=== PATIENT | female | born 1965 | race Caucasian/White ===

== ENCOUNTER 2018-04-26 11:15 | Inpatient (IN) | payer OTHER ==
[~2018-04-26] VITALS: Ht 175.3 cm; Wt 90.0 kg
[2018-04-26] MEDS ORDERED: BISACODYL 10 MG SUPP PR PRN (17:45)
[2018-04-26] MEDS ORDERED: MOM 30ML SUSPENSION UDC PO PRN (17:45)
[2018-04-26] MEDS ORDERED: DEXTROSE 50% 50 ML SYRINGE IV PRN (17:45)
[2018-04-26] MEDS ORDERED: ONDANSETRON 4 MG TAB (S0181) PO PRN (17:45)
[2018-04-26] MEDS ORDERED: GLUCOSE 4 GM CHEW TABLET PO PRN (17:45)
[2018-04-26] MEDS ORDERED: GLUCAGON FOR INJ 1 MG VIAL (J1610) SC PRN (17:45)
[2018-04-26] MEDS ORDERED: ACETAMINOPHEN TAB 650MG DOSE (2X325MG) PO PRN (17:45)
[2018-04-26 18:00] VITALS: BP 134/79
[2018-04-26] MEDS ORDERED: LANTINJ4 SC (18:41)
[2018-04-26] MEDS ORDERED: ATOR80TA59 PO (18:41)
[2018-04-26] MEDS ORDERED: LISI40TA PO (18:41)
[2018-04-26] MEDS ORDERED: LEVO25TA5 PO (18:41)
[2018-04-26] MEDS ORDERED: AMLO10TA5 PO (18:41)
[2018-04-26] MEDS ORDERED: NOVOINJ2 SC (18:41)
[2018-04-26] MEDS ORDERED: METF500T4 PO (18:41)
[2018-04-26] MEDS ORDERED: METO1TAB33 PO (18:41)
[2018-04-26] MEDS ORDERED: GABA-1171 PO (18:41)
[2018-04-26] MEDS ORDERED: ISOS60TA2 PO (18:41)
[2018-04-26] MEDS ORDERED: ASPI1TAB PO (18:41)
[2018-04-26] MEDS ORDERED: CLOP75TA2 PO (18:41)
[2018-04-26] MEDS ORDERED: FAMO40TA3 PO (18:41)
[2018-04-26 20:00] VITALS: BP 151/69
[2018-04-26] MEDS: ATORVASTATIN 20 MG TAB PO SCH (22:22)
[2018-04-26] MEDS: DOCUSATE SODIUM 100 MG CAP PO SCH (22:23)
[2018-04-26] MEDS: SENNA 8.6 MG TAB (SENOKOT) PO SCH (22:23)
[2018-04-26] MEDS: GABAPENTIN 100 MG CAP PO SCH (22:23)
[2018-04-26] MEDS: LEVEMIR (INSULIN DETEMIR) 1 UNITS/0.01ML SC SCH (22:24)
[2018-04-27 06:00] VITALS: BP 129/66
[2018-04-27] MEDS: LEVOTHYROXINE 25MCG TABLET (0.025MG) PO SCH (06:32)
[2018-04-27 06:57] LABS: BASO # 0.1 10^3/uL (0.0-0.2); BASO % 0.5 % (0.0-1.0); EOS # 0.5 10^3/uL (0.0-0.50); EOS % 5.6 % (0.0-3.0); HEMATOCRIT 40.1 % (36.0-47.0); HEMOGLOBIN 12.8 g/dl (12.0-15.5); LYMPH # 2.8 10^3/uL (1.5-4.5); MEAN CORPUSCULAR HEMOGLOBIN 29.7 pg (27.0-33.0); MEAN CORPUSCULAR HGB CONC 31.9 g/dl (32.0-36.5); MONO # 0.9 10^3/uL (0.0-0.8); MONO % 9.2 % (0.0-5.0); NEUTROPHILS # 5.1 10^3/uL (1.8-7.7); NEUTROPHILS % 54.3 % (36.0-66.0); PLATELET COUNT, AUTOMATED 274 10^3/uL (150-450); RED BLOOD COUNT 4.31 10^6/uL (4.00-5.40); WHITE BLOOD COUNT 9.3 10^3/uL (4.0-10.0)
[2018-04-27 07:21] LABS: ALBUMIN 2.8 GM/DL (3.2-5.2); ALT/SGPT 24 U/L (12-78); BILIRUBIN,TOTAL 0.4 MG/DL (0.2-1.0); BLOOD UREA NITROGEN 20 MG/DL (7-18); CALCIUM LEVEL 8.7 MG/DL (8.5-10.1); CARBON DIOXIDE LEVEL 26 MEQ/L (21-32); CHLORIDE LEVEL 105 MEQ/L (98-107); CREATININE FOR GFR 0.88 MG/DL (0.55-1.30); GLOMERULAR FILTRATION RATE > 60.0 (>51); GLUCOSE, FASTING 134 MG/DL (70-100); SODIUM LEVEL 138 MEQ/L (136-145); TOTAL PROTEIN 6.8 GM/DL (6.4-8.2)
[2018-04-27] MEDS: FLUoxetine 20 MG CAP PO SCH (08:47)
[2018-04-27] MEDS: HumuLIN (NovoLIN)70/30 INSULIN INJ PER UNIT SC SCH ×2 (08:47→17:21)
[2018-04-27] MEDS: amLODIPine 10 MG TAB PO SCH (08:47)
[2018-04-27] MEDS: GABAPENTIN 100 MG CAP PO SCH (08:47)
[2018-04-27] MEDS: CLOPIDOGREL 75 MG TAB PO SCH (08:47)
[2018-04-27] MEDS: ISOSORBIDE MON. (IMDUR) 60 MG XR TAB PO SCH (08:48)
[2018-04-27] MEDS: PANTOPRAZOLE 40MG TAB (PROTONIX) PO SCH (08:48)
[2018-04-27] MEDS: ASPIRIN 81 MG CHEW TABLET PO SCH (08:48)
[2018-04-27] MEDS: DOCUSATE SODIUM 100 MG CAP PO SCH ×2 (08:48→21:02)
[2018-04-27] MEDS ORDERED: METOPROLOL SUCC *XL* 25MG TAB (TopROL *XL*) PO SCH (09:00)
[2018-04-27] MEDS: LISINOPRIL 40 MG TAB PO SCH (10:00)
[2018-04-27 10:05] VITALS: BP 163/82
[2018-04-27] MEDS ORDERED: DEXTROSE 50% 50 ML SYRINGE IV PRN (12:00)
[2018-04-27] MEDS ORDERED: GLUCOSE 4 GM CHEW TABLET PO PRN (12:00)
[2018-04-27] MEDS ORDERED: GLUCAGON FOR INJ 1 MG VIAL (J1610) SC PRN (12:00)
--- NOTE | 2018-04-27 12:03 | CR.PDOC ---
General Date of Consultation: Apr 27, 2018 Referring Provider: VINCENT MERLOS MD Primary Care Physician: A Attending Physician: EMERY CABRERA MD Consultation REASON FOR CONSULTATION/CHIEF COMPLAINT: Medical Management HISTORY OF PRESENT ILLNESS: Patient is a 51-year-old female with a past medical history of CAD, diabetes, hyperlipidemia, hypertension and Hypothyroidism . She presented to [facility] for with her second stroke in a different territory from her previous stroke 1 year ago. Given that this is the second stroke they was concern for cardioembolic source during admission. Patient underwent TTE that demonstrated mildly dilated left ventricle with ejection fraction of 40-45%. There was global hypokinesis without evidence of apical thrombus. Patient had aortic sclerosis, mildly dilated aortic root, no thrombus was detected. Negative bubble s tudy.Commercial Producer recommended CHINTAN to look at the atrial appendage, as well as a loop recorder implanted at discharge to monitor for atrial fibrillation. CHINTAN was later considered to be too risky given concern for aspiration, but a Loop recorder was placed by Dr. Lazcano to monitor for Afib. She presented to the ED with multiple mechanical falls over the last 2 days, and some memory changes as well as new right-sided weakness and difficulty swallowing. CT of the head showed no acute infarct or intracranial hemorrhage. And an old left occipital infarct was noted. She was admitted to [facility] with neurology consultation. An MRI during admission showed a left TYSON ischemic stroke, making this a second stroke within a year. Per neurology recommendation. Patient was asked to continue aspirin, Plavix and statin. She was monitored. Her other chronic medical problems such as hypertension, diabetes, coronary disease, hyperlipidemia and hypothyroidism was managed with home medication. She also received physical therapy and occupational therapy during hospital stay. She was discharged from [place] in stable condition. She presented to [facility] on 04/26/2018 for rehabilitation. Hospitalist team was consulted for medical management during her rehabilitation. ALLERGIES: Please see below. HOME MEDICATIONS: Please see below. PAST MEDICAL HISTORY: Coronary artery disease. Cerebrovascular accident. Diabetes type 2. Hyperlipidemia Hypertension PAST SURGICAL HISTORY: Cardiac catheterization in 05/21/2017: Normal coronaries FAMILY HISTORY: Aneurysm SOCIAL HISTORY: Single, unmarried, denies alcohol, denies tobacco use. Current every day smoker REVIEW OF SYSTEMS: ROS CONSTITUTIONAL: No fevers, denies chills, denies weight loss, denies lethargy HEENT: No rhinorrhea, no itchy eyes, no congesion, CARDIOVASCULAR: No murmurs no palpitations and arrhythmias RESPIRATORY: Not cough, No SOB, no issues to report GASTROINTESTINAL: No nausea, no vomiting, no difficulty swallowing, no pain with eating, no diarrhea HEMATOLOGICAL: No bleeding GENITOURINARY:No Issues HEMATOLOGIC/LYMPHATIC: No swelling Neuro: Admits to right sided weakness PE VITALS: See Below GENERAL APPEARANCE: Alert no acute distress. SKIN: Warm, well perfused. THORAX: Symmetrical. LUNGS: Clear to auscultation bilaterally. HEART: Normal S1, S2. No murmurs, no rubs, no gallops ABDOMEN: Soft. No masses. Bowel sounds are present. TRUNK/SPINE:Straight. EXTREMITIES: Moves all extremities equally. No gross deformities. PULSES: 2+ upper and lower extremity . NEURO cranial nerves II through XII, 5 out of 5 bilateral upper extremity, 3 out of 5 bilateral lower extremity LABORATORY DATA: Please see below. ASSESSMENT/PLAN: #CVA -Patient presented to [facility] for stroke. She was treated appropr iately, and discharge with a plan to remain on dual oral anticoagulant therapy with platelets and aspirin. Neurologist has recommended discontinuation of Lasix in June. Will defer to patient's neurologist for further management of her anticoagulation therapy. #Hypertension -Patient is on lisinopril, Norvasc, isosorbide mononitrate, metoprolol succinate . Her blood pressure remained stable. He denies any headache, denies any dizziness, #Diabetes -Levemir 10 units twice a day. Add sliding scale regimen to patient #Coronary artery disease #Hyperlipidemia -Atorvastatin 80 mg #Rehab -Patient will continue physical therapy and occupational therapy . Vital Signs/I&O Vital Signs Date Time Temp Pulse Resp B/P (MAP) Pulse Ox O2 Delivery O2 Flow Rate FiO2 04/27/18 10:05 82 163/82 (109) 04/27/18 06:00 98.3 17 95 I&O- Last 24 Hours up to 6 AM 04/27/18 05:59 Intake Total 420 ml Balance 420 ml Laboratory Data Labs 24H Laboratory Tests 2 04/26/18 22:25: Bedside Glucose (Misc Panel) 248H 04/27/18 06:26: Immature Granulocyte % (Auto) 0.4, White Blood Count 9.3, Red Blood Count 4.31, Hemoglobin 12.8, Hematocrit 40.1, Mean Corpuscular Volume 93.0, Mean Corpuscular Hemoglobin 29.7, Mean Corpuscular Hemoglobin Concent 31.9L, Red Cell Distribution Width 13.2, Platelet Count 274, Neutrophils (%) (Auto) 54.3, Lymphocytes (%) (Auto) 30.0, Monocytes (%) (Auto) 9.2H, Eosinophils (%) (Auto) 5.6H, Basophils (%) (Auto) 0.5, Neutrophils # (Auto) 5.1, Lymphocytes # (Auto) 2.8, Monocytes # (Auto) 0.9H, Eosinophils # (Auto) 0.5, Basophils # (Auto) 0.1, Nucleated Red Blood Cells % (auto) 0.0, Anion Gap 7L, Glomerular Filtration Rate > 60.0, Blood Urea Nitrogen 20H, Creatinine 0.88, Sodium Level 138, Potassium Level 4.0, Chloride Level 105, Carbon Dioxide Level 26, Calcium Level 8.7, Aspartate Amino Transf (AST/SGOT) 14, Alanine Aminotransferase (ALT/SGPT) 24, Alkaline Phosphatase 100, Total Bilirubin 0.4, Total Protein 6.8, Albumin 2.8L, Albumin/Globulin Ratio 0.70L CBC/BMP Laboratory Tests 04/27/18 06:26 Red Blood Count 4.31, Mean Corpuscular Volume 93.0, Mean Corpuscular Hemoglobin 29.7, Mean Corpuscular Hemoglobin Concent 31.9 L, Red Cell Distribution Width 13.2, Neutrophils (%) (Auto) 54.3, Lymphocytes (%) (Auto) 30.0, Monocytes (%) (Auto) 9.2 H, Eosinophils (%) (Auto) 5.6 H, Basophils (%) (Auto) 0.5, Neutrophils # (Auto) 5.1, Lymphocytes # (Auto) 2.8, Monocytes # (Auto) 0.9 H, Eosinophils # (Auto) 0.5, Basophils # (Auto) 0.1, Calcium Level 8.7, Aspartate Amino Transf (AST/SGOT) 14, Alanine Aminotransferase (ALT/SGPT) 24, Alkaline Phosphatase 100, Total Bilirubin 0.4, Total Protein 6.8, Albumin 2.8 L Allergies Coded Allergies: No Known Allergies (Unverified , 04/26/18) Home Medications Scheduled Amlodipine Besylate (Amlodipine Besylate) 10 Mg Tab, 10 MG PO DAILY, (Reported) TO [facility]27[facility] Aspirin (Aspirin 81) 81 Mg Tab, 81 MG PO DAILY, (Reported) Atorvastatin Calcium (Atorvastatin Calcium) 80 Mg Tab, 80 MG PO QHS, (Reported) TO START ON 04/27/18 PER [facility] Clopidogrel Bisulfate (Clopidogrel) 75 Mg Tab, 75 MG PO DAILY, (Reported) TO START ON 04/27/18 PER [facility] Famotidine (Famotidine) 40 Mg Tab, 40 MG PO DAILY, (Reported) Gabapentin (Gabapentin) 100 Mg Cap, 100 MG PO BID, (Reported) Insulin Aspart Protamine/Aspar (Novolog Mix 70/30 Prefill (70-30) 100 Unit/ml) 1 Inj Inj, 12 UNITS SC BID, (Reported) Insulin Glargine (Lantus Solostar) 100 Unit/Ml Inj, 18 UNITS SC QHS, (Reported) Isosorbide Mononitrate (Isosorbide Mononitrate ER) 60 Mg Tab, 60 MG PO DAILY, (Reported) Levothyroxine Sodium (Synthroid) 25 Mcg Tab, 25 MCG PO DAILY, (Reported) TO [place]27/[place] Lisinopril (Lisinopril) 40 Mg Tab, 40 MG PO DAILY, (Reported) Metformin Hydrochloride (Metformin HCl ER) 500 Mg Tab, 1,000 MG PO BID, (Reported) Metoprolol Succinate (Metoprolol Succinate ER) 100 Mg Tab, 100 MG PO DAILY, (Reported) GME ATTESTATION GME ATTESTATION My faculty preceptor for this patient encounter was physically present during the encounter and was fully available. All aspects of the patient interview, examination, medical decision making process, and medical care plan development were reviewed and approved by the faculty preceptor. The faculty preceptor is aware and concurs with the plan as stated in the body of this note and will attest to such by his/her cosignature. DONN BUTTS DO Apr 27, 2018 12:03
[2018-04-27] MEDS: HumaLOG INSULIN (NovoLOG) PER UNIT SC SCH ×3 (12:25→21:00)
[2018-04-27 13:05] VITALS: BP 156/81
--- NOTE | 2018-04-27 13:10 | HPEPDOC ---
Entry Level Business Analyst Note DATE OF ADMISSION: Apr 26, 2018 at 17:15 SOURCE OF ADMISSION INFORMATION: Patient and [place]'s medical records CHIEF COMPLAINT: stroke HISTORY OF PRESENT ILLNESS: 52F pmh CAD, DM, HLD, HTN ,CVA with no significant residual weakness, who presented to [facility] on 04/14/18 complaining of right leg weakness that had lasted for 2 days in addition to memory loss. She reported at the time she had stopped taking her aspirin and was noted to have difficulty swallowing on exam. Repeat imaging revealed a left TYSON territory acute ischemic stroke with a probable occlusion of left TYSON. May be secondary to high grade atherosclerotic occlusion versus embolism. She was also found to have a remote left stroke in the left EMAIL MANAGER distribution. TTE showed, LV systolic function is mildly impairedejection fraction is 40- 45%...LV diastolic function is abnormal with elevated filling pressuresAscending aorta is mildly dilated measuring up to 3.7 cmbubble study no evidence of any ASD or PFO. Carotid US revealed 50-69% stenosis within the left internal carotid artery. Less than 50% stenosis within the proximal right internal carotid artery. She was evaluated by cardiology who was concerned that given this was her second stroke within the year that the source may be cardioembolic. She was instructed to continue ASA and Plavix until June 2018 then to discontinue Plavix and continue ASA. CHINTAN was later considered to be too risky given concern for aspiration, but a Loop recorder was placed by Dr. Lazcano to monitor for Afib.She was evaluated by therapy and deemed medically appropriate for discharge to ARU on 04/26/18. REVIEW OF SYSTEMS: The following is a completed review of systems and has been reviewed. Review of systems otherwise unremarkable. PAIN: Patient self reports no pain. EYES: +right visual field cut EARS, NOSE, & THROAT: +dysphagia, no rhinorrhea or hearing loss CARDIOVASCULAR: denies palpitations or chest pain PULMONARY: Negative. Denies shortness of breath GASTROINTESTINAL: Negative for diarrhea or constipation GENITOURINARY: +incontinence, denies dysuria. MUSCULOSKELETAL: RLE weakness NEUROLOGICAL: +stroke with RLE paresis HEMATOLOGICAL: Negative SKIN: loop recorder incision PSYCHIATRIC: Unremarkable. All other review of systems found to be negative. PAST MEDICAL HISTORY: CAD, DM, HLD, HTN ,CVA PAST SURGICAL HISTORY: Cardiac Catheterization 3/5/18- normal coronaries with mod-severe LV systolic function with EF 30-35 and moderate to severe mitral regurgitation, however f/u echo 08/2017 showed normal EF and no mitral disease Loop recorder placed 04/2018 ALLERGIES: Please see below. MEDICATIONS: Please see below. FAMILY HISTORY: Mother with aneurysm SOCIAL HISTORY: Lives with significant other, daughter, smokes 1/2 pack a day, denies ETOH or illicit drug use DIET: mechanical soft and puree PHYSICAL EXAMINATION: VITAL SIGNS: Please see below. GENERAL: Pleasant and cooperative. No acute distress. HEENT: PERRL. Extraocular movements intact. Clear conjunctiva, poor dentition, visual field cut on the right CARDIOVASCULAR: Regular rate and rhythm. No murmurs, rubs, or gallops LUNGS: Clear to auscultation bilaterally. No wheezes. No rhonchi ABDOMEN: Soft, nontender, nondistended. Positive bowel sounds. Normal active bowel sounds NEUROLOGICAL: Alert and oriented times three. Cranial nerves II through XII grossly intact. EXTREMITIES: 5\5 strength bilateral upper extremities. 2/5 right hip flexors, knee extensors, ankle DF and EHL 5/5 strength in left lower extremity. +Babinski on the right +decreased sensation in right LE to light touch negative dysmetria SKIN: chest wall incision with sutures healing well IMAGING: Imaging documentation personally reviewed by record. FUNCTIONAL STATUS: Premorbid: Independent with all activities of daily life as well as mobility. On Admission: Min assist x 2 for functional transfers, min assist for bed mobility, Standby Assist for upper body dressing, mod-assist for Lower Body dressing, Min-Mod assist for bathing. GOALS: Modified Independent ambulating with a RW, upper and lower body dressing, Supervision for stairs, supervision for bathing, medical optimization, assess for DME needs, family training ASSESSMENT:52-year-old F with past medical history of CVA, CAD, diastolic CHF, DM who presents status post new stroke with RLE weakness and dysphagia PLAN: 1. Rehab: PT/OT JOB HONER, assess fo DME 2. 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 Resp: encourage incentive spirometry, monitor for aspiration 4. Cardio: pmh HTN with diastolic and systolic CHF, continue BP meds and adjust as needed-medicine consulted 5. Endo: pmh DM, continue insulin therapy, will hold metformin 6. DVT ppx: Lovenox 7. GI ppx: Pepcid 8. : f/u admisison UA and Ucx, monitor PVRs 9. DIspo: [id number] with Dr. Warren PMD [phone] POST ADMISSION PHYSICIAN EVALUATION: Medical and functional status: Description of medical status, medical assess ment: As above. Rehabilitation diagnosis and current and prior cold morbid medical conditions as above. Risk of complications and plans to mitigate them as above. Description of functional status current status is as above. Prior status as above. Status compared to preadmission: There are no clinically significant differences between the patient's current status and the information described on the preadmission screening document. Treatment plan anticipated: Treatment plan is as described above. Required disciplines including physical therapy, occupational therapy, others as noted ab ove. Intensity of services: 3 hours a day, 6 days a week. Special considerations: There are no specific special or safety considerations that would likely preclude immediate implementation of an intensive rehabilitation program or subsequently influence the plan of care. ATTESTATION: Considering all the information above, it is my best judgment that this patient requires intensive rehabilitation therapy as described above and an inpatient hospital environment due to the complexity of nursing, medical, and rehabilitation needs required by the patient. Furthermore, this patient can r easonably be expected to participate in an benefit from an inpatient rehabilitation stay with an interdisciplinary team approach to the delivery of rehabilitation care under the direction and supervision of rehabilitation physician. PROGNOSIS: Excellent. ESTIMATED LENGTH OF STAY:21-28 days. PROJECTED DISCHARGE DESTINATION: Home with family support and any durable medical equipment required to increase functional safety and mobility. TIME SPENT COUNSELING AND COORDINATING INITIAL CARE: Greater than 70 minutes. Vital Signs Vital Signs Date Time Temp Pulse Resp B/P (MAP) Pulse Ox O2 Delivery O2 Flow Rate FiO2 04/26/18 18:00 97.5 60 18 134/79 (97) 94 Home Medications Scheduled Amlodipine Besylate (Amlodipine Besylate) 10 Mg Tab, 10 MG PO DAILY, (Reported) TO START ON 04/27/18 PER [facility] Aspirin (Aspirin 81) 81 Mg Tab, 81 MG PO DAILY, (Reported) Atorvastatin Calcium (Atorvastatin Calcium) 80 Mg Tab, 80 MG PO QHS, (Reported) TO START ON 04/27/18 PER [facility] Clopidogrel Bisulfate (Clopidogrel) 75 Mg Tab, 75 MG PO DAILY, (Reported) TO START ON 04/27/18 PER [facility] Famotidine (Famotidine) 40 Mg Tab, 40 MG PO DAILY, (Reported) Gabapentin (Gabapentin) 100 Mg Cap, 100 MG PO BID, (Reported) Insulin Aspart Protamine/Aspar (Novolog Mix 70/30 Prefill (70-30) 100 Unit/ml) 1 Inj Inj, 12 UNITS SC BID, (Reported) Insulin Glargine (Lantus Solostar) 100 Unit/Ml Inj, 18 UNITS SC QHS, (Reported) Isosorbide Mononitrate (Isosorbide Mononitrate ER) 60 Mg Tab, 60 MG PO DAILY, (Reported) Levothyroxine Sodium (Synthroid) 25 Mcg Tab, 25 MCG PO DAILY, (Reported) TO START ON 04/27/18 PER [facility] Lisinopril (Lisinopril) 40 Mg Tab, 40 MG PO DAILY, (Reported) Metformin Hydrochloride (Metformin HCl ER) 500 Mg Tab, 1,000 MG PO BID, (Reported) Metoprolol Succinate (Metoprolol Succinate ER) 100 Mg Tab, 100 MG PO DAILY, (Reported) Allergies Coded Allergies: No Known Allergies (Unverified , 04/26/18) VINCENT MERLOS MD Apr 26, 2018 18:17
--- NOTE | 2018-04-27 13:11 | NUR ---
Pt w/ mild oral phase dysphagia Recommend mechanical soft solids (NDD) level 3 and thin liquids Addendum: 04/27/18 at 1312 by TOMI HOOD [facility] Amended: Links added.
--- NOTE | 2018-04-27 13:16 | NUR ---
Pt w/ dysarthric speech and mild deficits in receptive/expressive language which are significantly impacted by short term memory impairment. Recommend DIESEL ENGINE ERECTOR tx for dysarthria & cognition. Will re-assess language if necessary as these deficits improve. Addendum: 04/27/18 at 1318 by TOMI HOOD [facility] Amended: Links added.
--- NOTE | 2018-04-27 13:22 | NUR ---
Pt w/ moderate cognitive impairment. Recommend NETWORK SYSTEMS OPERATOR tx targeting memory, attention, orientation, awareness, and problem-solving. Addendum: 04/27/18 at [address] [facility] Amended: Links added.
[2018-04-27 14:00] VITALS: BP 125/65
[2018-04-27 20:00] VITALS: BP 152/80
[2018-04-27] MEDS: SENNA 8.6 MG TAB (SENOKOT) PO SCH (21:02)
[2018-04-27] MEDS: LEVEMIR (INSULIN DETEMIR) 1 UNITS/0.01ML SC SCH (21:02)
[2018-04-27] MEDS: ATORVASTATIN 20 MG TAB PO SCH (21:02)
[2018-04-28] MEDS: LEVOTHYROXINE 25MCG TABLET (0.025MG) PO SCH (05:20)
[2018-04-28 06:00] VITALS: BP 150/84
[2018-04-28] MEDS: HumaLOG INSULIN (NovoLOG) PER UNIT SC SCH ×4 (09:22→22:30)
[2018-04-28] MEDS: ASPIRIN 81 MG CHEW TABLET PO SCH (09:22)
[2018-04-28] MEDS: HumuLIN (NovoLIN)70/30 INSULIN INJ PER UNIT SC SCH ×2 (09:22→17:15)
[2018-04-28] MEDS: ISOSORBIDE MON. (IMDUR) 60 MG XR TAB PO SCH (09:23)
[2018-04-28] MEDS: FLUoxetine 20 MG CAP PO SCH (09:23)
[2018-04-28] MEDS: METOPROLOL SUCC (TopROL XL) 50MG **XL** TAB PO SCH (09:23)
[2018-04-28] MEDS: PANTOPRAZOLE 40MG TAB (PROTONIX) PO SCH (09:24)
[2018-04-28] MEDS: amLODIPine 10 MG TAB PO SCH (09:24)
[2018-04-28] MEDS: CLOPIDOGREL 75 MG TAB PO SCH (09:24)
[2018-04-28] MEDS: LISINOPRIL 40 MG TAB PO SCH (09:24)
[2018-04-28] MEDS: DOCUSATE SODIUM 100 MG CAP PO SCH ×2 (09:24→21:00)
[2018-04-28 14:00] VITALS: BP 132/79
[2018-04-28 20:00] VITALS: BP 168/82
[2018-04-28] MEDS: SENNA 8.6 MG TAB (SENOKOT) PO SCH (21:00)
[2018-04-28] MEDS: ATORVASTATIN 20 MG TAB PO SCH (22:29)
[2018-04-28] MEDS: LEVEMIR (INSULIN DETEMIR) 1 UNITS/0.01ML SC SCH (22:30)
[2018-04-29] MEDS: LEVOTHYROXINE 25MCG TABLET (0.025MG) PO SCH (05:33)
[2018-04-29 06:00] VITALS: BP 168/84
[2018-04-29] MEDS: HumuLIN (NovoLIN)70/30 INSULIN INJ PER UNIT SC SCH ×2 (08:32→17:38)
[2018-04-29] MEDS: FLUoxetine 20 MG CAP PO SCH (08:33)
[2018-04-29] MEDS: CLOPIDOGREL 75 MG TAB PO SCH (08:33)
[2018-04-29] MEDS: ASPIRIN 81 MG CHEW TABLET PO SCH (08:33)
[2018-04-29] MEDS: DOCUSATE SODIUM 100 MG CAP PO SCH ×2 (08:33→21:26)
[2018-04-29] MEDS: PANTOPRAZOLE 40MG TAB (PROTONIX) PO SCH (08:33)
[2018-04-29] MEDS: HumaLOG INSULIN (NovoLOG) PER UNIT SC SCH ×6 (08:33→21:00)
[2018-04-29] MEDS: ISOSORBIDE MON. (IMDUR) 60 MG XR TAB PO SCH (08:36)
[2018-04-29] MEDS: METOPROLOL SUCC (TopROL XL) 50MG **XL** TAB PO SCH (08:36)
[2018-04-29] MEDS: amLODIPine 10 MG TAB PO SCH (08:37)
[2018-04-29] MEDS: LISINOPRIL 40 MG TAB PO SCH (10:54)
[2018-04-29 11:40] VITALS: BP 148/73
[2018-04-29 14:00] VITALS: BP 129/72
--- NOTE | 2018-04-29 14:18 | IPNPDOC ---
Date Seen The patient was seen on 04/29/18. Progress Note HPI: Patient is a 51-year-old female who presented to the ED with multiple mechanical falls over the 2 days prior to admission, and some memory changes as well as new right-sided weakness and difficulty swallowing. CT of the head showed no acute infarct or intracranial hemorrhage,old left occipital infarct was noted. She was admitted to [facility] with neurology consultation. An MRI during admission showed a left TYSON ischemic stroke, making this a second stroke within a year. Per neurology recommendation, the pt was continued on aspirin, Plavix and statin. Given that this is the second stroke there was concern for cardioembolic source during admission. Patient underwent TTE that demonstrated mildly dilated left ventricle with ejection fraction of 40-45%. There was global hypokinesis without evidence of apical thrombus. Patient had aortic sclerosis, mildly dilated aortic root, no thrombus was detected. Negative bubble study. Laundry Superintendent recommended CHINTAN to look at the atrial appendage, as well as a loop recorder implanted at discharge to monitor for atrial fibrillation. CHINTAN was later considered to be too risky given concern for aspiration, but a Loop re tori was placed by Dr. Lazcano to monitor for Afib. The pt was transferred to the care of Dr Teixeira, [facility], 04/27/18. The pt is noted to have residual RLE weakness and dysphagia. Denies any fevers, chills, weakness, fatigue, Headache, Chest Pain, Shortness of breath, cough, palpitations, abdominal pain, N/V/D or changes in bowel or bladder habits. PMHx: CAD DM HLD HTN hypothyroid H/O CVA 2017 PSHX: Cardiac catheterization in 05/21/2017: Normal coronaries Loop recorder PE: GEN: 52yoF, appears stated age. Well-nourished, well developed. No acute distress. Alert and oriented x 3. Pleasant, interactive. HEENT: Normocephalic, atraumatic. Sclera are nonicteric. Conjunctiva without injection. Nose midline. Nasal turbinates without bogginess. Moist mucous membranes. CHEST: Regular rate and rhythm, +S1, +S2 LUNGS: Clear to auscultation bilaterally. No wheezes, rales, or rhonchi. Breathing appears symmetric and easy. Patient is speaking in full sentences. No accessory muscle use. ABD: Round, soft, non-tender, non-distended. +Bowel sounds throughout. No rebound or guarding. EXT: No lower extremity edema appreciated. SKIN: [place], dry, warm. No rashes. NEURO: Alert and oriented x 3. A&P: Patient is a 51-year-old female who presented to the ED with multiple mechanical falls over the 2 days prior to admission, and some memory changes as well as new right-sided weakness and difficulty swallowing. CT of the head showed no acute infarct or intracranial hemorrhage,old left occipital infarct was noted. She was admitted to [facility] with neurology consultation. An MRI during admission showed a left TYSON ischemic stroke, making this a second stroke within a year. Per neurology recommendation, the pt was continued on aspirin, Plavix and stati n. Given that this is the second stroke there was concern for cardioembolic source during admission. Patient underwent TTE that demonstrated mildly dilated left ventricle with ejection fraction of 40-45%. There was global hypokinesis without evidence of apical thrombus. Patient had aortic sclerosis, mildly dilated aortic root, no thrombus was detected. Negative bubble study. Laundry Superintendent recommended CHINTAN to look at the atrial appendage, as well as a loop recorder implanted at discharge to monitor for atrial fibrillation. CHINTAN was later considered to be too risky given concern for aspiration, but a Loop recorder was placed by Dr. Lazcano to monitor for Afib. The pt was transferred to the care of Dr Teixeira, [facility], 04/27/18. 1. S/P CVA with residual RLE weakness and dysphagia. Mgmt as per ARU. PT/OT as per ARU. ST as per ARU. Pain control as per ARU. Bowel care as per ARU. DVT prophylaxis as per ARU. Outpt F/U with Neurology. Continue ASA81 mg daily, Plavix 75 mg daily, Lipitor 80 mg daily. 2. Hypertension Lisinopril, Norvasc, isosorbide mononitrate, metoprolol succinate. Her blood pressure remained stable. 3. Diabetes. CC diet SSI Levemir. 4. Coronary artery disease ASA/Toprol XL/Statin. 5. Hyperlipidemia Atorvastatin 80 mg 6. GERD. PPI. 7. hypothyroid. Continue supplement. 8. Depression. Prozac. VS, I&O, 24H, Fishbone Vital Signs/I&O Vital Signs Date Time Temp Pulse Resp B/P (MAP) Pulse Ox O2 Delivery O2 Flow Rate FiO2 04/29/18 11:40 97.3 81 20 148/73 (98) 96 I&O- Last 24 Hours up to 6 AM 04/29/18 06:00 Intake Total 720 ml Balance 720 ml Laboratory Data 24H LABS Laboratory Tests 2 04/28/18 16:36: Bedside Glucose (Misc Panel) 187H 04/28/18 20:08: Bedside Glucose (Misc Panel) 283H 04/29/18 05:27: Bedside Glucose (Misc Panel) 133H 04/29/18 11:23: Bedside Glucose (Misc Panel) 268H Elicia Patino Apr 29, 2018 14:18
[2018-04-29 21:05] VITALS: BP 131/61
[2018-04-29] MEDS: ATORVASTATIN 20 MG TAB PO SCH (21:26)
[2018-04-29] MEDS: SENNA 8.6 MG TAB (SENOKOT) PO SCH (21:26)
[2018-04-29] MEDS: LEVEMIR (INSULIN DETEMIR) 1 UNITS/0.01ML SC SCH (21:29)
[2018-04-30] MEDS: LEVOTHYROXINE 25MCG TABLET (0.025MG) PO SCH (05:29)
[2018-04-30 05:34] VITALS: BP 131/63
[2018-04-30] MEDS: HumuLIN (NovoLIN)70/30 INSULIN INJ PER UNIT SC SCH ×2 (07:30→17:17)
[2018-04-30] MEDS: HumaLOG INSULIN (NovoLOG) PER UNIT SC SCH ×7 (07:30→20:11)
[2018-04-30 07:31] LABS: BASO # 0.1 10^3/uL (0.0-0.2); BASO % 0.7 % (0.0-1.0); EOS # 0.4 10^3/uL (0.0-0.50); EOS % 4.3 % (0.0-3.0); HEMATOCRIT 39.3 % (36.0-47.0); HEMOGLOBIN 12.5 g/dl (12.0-15.5); LYMPH # 2.9 10^3/uL (1.5-4.5); LYMPH % 31.9 % (24.0-44.0); MEAN CORPUSCULAR HEMOGLOBIN 29.8 pg (27.0-33.0); MEAN CORPUSCULAR HGB CONC 31.8 g/dl (32.0-36.5); MEAN CORPUSCULAR VOLUME 93.6 fl (80.0-96.0); MONO # 0.8 10^3/uL (0.0-0.8); NEUTROPHILS # 4.9 10^3/uL (1.8-7.7); NEUTROPHILS % 53.8 % (36.0-66.0); PLATELET COUNT, AUTOMATED 293 10^3/uL (150-450)
[2018-04-30 08:28] LABS: BLOOD UREA NITROGEN 21 MG/DL (7-18); CALCIUM LEVEL 8.7 MG/DL (8.5-10.1); CARBON DIOXIDE LEVEL 28 MEQ/L (21-32); CHLORIDE LEVEL 105 MEQ/L (98-107); CREATININE FOR GFR 0.89 MG/DL (0.55-1.30); GLOMERULAR FILTRATION RATE > 60.0 (>51); GLUCOSE, FASTING 102 MG/DL (70-100); POTASSIUM SERUM 4.3 MEQ/L (3.5-5.1); SODIUM LEVEL 139 MEQ/L (136-145)
[2018-04-30] MEDS: CLOPIDOGREL 75 MG TAB PO SCH (09:46)
[2018-04-30] MEDS: FLUoxetine 20 MG CAP PO SCH (09:46)
[2018-04-30] MEDS: PANTOPRAZOLE 40MG TAB (PROTONIX) PO SCH (09:46)
[2018-04-30] MEDS: ISOSORBIDE MON. (IMDUR) 60 MG XR TAB PO SCH (09:48)
[2018-04-30] MEDS: ASPIRIN 81 MG CHEW TABLET PO SCH (09:48)
[2018-04-30] MEDS: DOCUSATE SODIUM 100 MG CAP PO SCH ×2 (09:48→20:11)
[2018-04-30] MEDS: amLODIPine 10 MG TAB PO SCH (09:48)
[2018-04-30] MEDS: METOPROLOL SUCC (TopROL XL) 50MG **XL** TAB PO SCH (09:48)
[2018-04-30] MEDS: LISINOPRIL 40 MG TAB PO SCH (10:27)
--- NOTE | 2018-04-30 12:35 | IPNPDOC ---
PM&R Progress Note DATE OF SERVICE: Apr 29, 2018 Service Architect Progress Note Subjective: Patient slid out of her chair today, denies hitting her head, no pain. She denies pain with urination, however is incontinent. REVIEW OF SYSTEMS: The following is a completed review of systems and has been reviewed. Review of systems otherwise unremarkable. PAIN: Patient self reports no pain. EYES: +right visual field cut EARS, NOSE, & THROAT: +dysphagia, no rhinorrhea or hearing loss CARDIOVASCULAR: denies palpitations or chest pain PULMONARY: Negative. Denies shortness of breath GASTROINTESTINAL: Negative for diarrhea or constipation GENITOURINARY: +incontinence, denies dysuria. MUSCULOSKELETAL: RLE weakness NEUROLOGICAL: +stroke with RLE paresis HEMATOLOGICAL: Negative SKIN: loop recorder incision PSYCHIATRIC: Unremarkable. All other review of systems found to be negative. PHYSICAL EXAMINATION: VITAL SIGNS: Please see below. GENERAL: Pleasant and cooperative. No acute distress. HEENT: PERRL. Extraocular movements intact. Clear conjunctiva, poor dentition, visual field cut on the right CARDIOVASCULAR: Regular rate and rhythm. No murmurs, rubs, or gallops LUNGS: Clear to auscultation bilaterally. No wheezes. No rhonchi ABDOMEN: Soft, nontender, nondistended. Positive bowel sounds. Normal active bowel sounds NEUROLOGICAL: Alert and oriented times three. Cranial nerves II through XII grossly intact. EXTREMITIES: 5\5 strength bilateral upper extremities. 2/5 right hip flexors, knee extensors, ankle DF and EHL 5/5 strength in left lower extremity. +Babinski on the right +decreased sensation in right LE to light touch negative dysmetria SKIN: chest wall incision with sutures healing well ASSESSMENT:52-year-old F with past medical history of CVA, CAD, diastolic CHF, DM who presents status post new stroke with RLE weakness and dysphagia PLAN: 1. Rehab: PT/OT [employer], assess fo DME, aptient with significant right sided inattention due to visual field cut- upgraded to mechanical soft diet and thins 2. 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 Resp: encourage incentive spirometry, monitor for aspiration 4. Cardio: pmh HTN with diastolic and systolic CHF, continue BP meds and adjust as needed-medicine consulted 5. Endo: pmh DM, continue insulin therapy, will hold metformin 6. DVT ppx: Lovenox 7. GI ppx: Pepcid 8. : f/u admisison UA and Ucx, monitor PVRs 9. DIspo: [id number] with Dr. Warren PMD [phone] Allergies Coded Allergies: No Known Allergies (Unverified , 04/26/18) Vital Signs Vital Signs Date Time Temp Pulse Resp B/P (MAP) Pulse Ox O2 Delivery O2 Flow Rate FiO2 04/30/18 09:48 71 04/30/18 09:48 137/63 04/30/18 05:34 97.7 18 95 Laboratory Data CBC/BMP Laboratory Tests 04/30/18 06:32 Red Blood Count 4.20, Mean Corpuscular Volume 93.6, Mean Corpuscular Hemoglobin 29.8, Mean Corpuscular Hemoglobin Concent 31.8 L, Red Cell Distribution Width 13.3, Neutrophils (%) (Auto) 53.8, Lymphocytes (%) (Auto) 31.9, Monocytes (%) (Auto) 9.0 H, Eosinophils (%) (Auto) 4.3 H, Basophils (%) (Auto) 0.7, Neutrophils # (Auto) 4.9, Lymphocytes # (Auto) 2.9, Monocytes # (Auto) 0.8, Eosinophils # (Auto) 0.4, Basophils # (Auto) 0.1, Calcium Level 8.7 Labs 24H Laboratory Tests 2 04/29/18 17:00: Bedside Glucose (Misc Panel) 164H 04/29/18 21:10: Bedside Glucose (Misc Panel) 123H 04/30/18 06:32: Immature Granulocyte % (Auto) 0.3, White Blood Count 9.0, Red Blood Count 4.20, Hemoglobin 12.5, Hematocrit 39.3, Mean Corpuscular Volume 93.6, Mean Corpuscular Hemoglobin 29.8, Mean Corpuscular Hemoglobin Concent 31.8L, Red Cell Distribution Width 13.3, Platelet Count 293, Neutrophils (%) (Auto) 53.8, Lymphocytes (%) (Auto) 31.9, Monocytes (%) (Auto) 9.0H, Eosinophils (%) (Auto) 4.3H, Basophils (%) (Auto) 0.7, Neutrophils # (Auto) 4.9, Lymphocytes # (Auto) 2.9, Monocytes # (Auto) 0.8, Eosinophils # (Auto) 0.4, Basophils # (Auto) 0.1, Nucleated Red Blood Cells % (auto) 0.0, Anion Gap 6L, Glomerular Filtration Rate > 60.0, Blood Urea Nitrogen 21H, Creatinine 0.89, Sodium Level 139, Potassium Level 4.3, Chloride Level 105, Carbon Dioxide Level 28, Calcium Level 8.7 04/30/18 06:40: Bedside Glucose (Misc Panel) 96 Current Medications Current Medications Current Medications Acetaminophen (Tylenol Tab) 650 mg Q4HP PRN PO fever/MILD PAIN (PS 1-4); Start 04/26/18 at 17:45 Amlodipine Besylate (Norvasc) 10 mg DAILY PO Last administered on 04/30/18at 09:48; Start 04/27/18 at 09:00 Aspirin (Aspirin Chewable) 81 mg DAILY PO Last administered on 04/30/18at 09:48; Start 04/27/18 at 09:00 Atorvastatin Calcium (Lipitor) 80 mg QHS PO Last administered on 04/29/18at 21:26; Start 04/26/18 at 21:00 Bisacodyl (Dulcolax Suppository) 10 mg DAILYPRN PRN [place] CONSTIPATION; Start 04/26/18 at 17:45 Clopidogrel Bisulfate (PLAVix) 75 mg DAILY PO Last administered on 04/30/18at 09:46; Start 04/27/18 at 09:00 Dextrose (Dextrose 50%) 25 ml ASDIRECTED PRN IV SEE LABEL COMMENTS; Start 04/26/18 at 17:45 Dextrose (Dextrose 50%) 25 ml ASDIRECTED PRN IV SEE LABEL COMMENTS; Start 04/27/18 at 12:00; Stop 04/27/18 at 12:00; Status DC Docusate Sodium (Colace) 100 mg BID PO Last administered on 04/30/18 09:48; Start 04/26/18 at 21:00 Fluoxetine HCl (PROzac) 20 mg DAILY PO Last administered on 04/30/18at 09:46; Start 04/27/18 at 09:00 Gabapentin (Neurontin) 100 mg BID PO Last administered on 04/27/18at 08:47; Start 04/26/18 at 21:00; Stop 04/27/18 at 13:07; Status DC Glucagon (Glucagon) 1 mg ASDIRECTED PRN SC SEE LABEL COMMENTS; Start 04/26/18 at 17:45 Glucagon (Glucagon) 1 mg ASDIRECTED PRN SC SEE LABEL COMMENTS; Start 04/27/18 at 12:00; Status UNV Glucose (Glucose) 16 GM ASDIRECTED PRN PO SEE LABEL COMMENTS; Start 04/26/18 at 17:45 Glucose (Glucose) 16 GM ASDIRECTED PRN PO SEE LABEL COMMENTS; Start 04/27/18 at 12:00; Stop 04/27/18 at 12:00; Status DC Home Med (Med Rec Complete!) ASDIRECTED XX ; Start 04/26/18 at 18:45; Stop 04/26/18 at 18:48; Status DC Insulin Detemir (Levemir Insulin) 10 units QHS SC Last administered on 04/29/18at 21:29; Start 04/26/18 at 21:00 Insulin Human Isoph/Insulin Regular (HumuLIN 70/30 INSULIN) 10 units BID@0730,1730 SC Last administered on 04/29/18at 17:38; Start 04/27/18 at 07:30 Insulin Human Lispro (HumaLOG INSULIN) 2 units AC SC Last administered on 04/30/18 12:21; Start 04/29/18 at 12:00 Insulin Human Lispro (HumaLOG INSULIN) SEE PROTOCOL TABLE AC SC Last admi nistered on 04/30/18 12:20; Start 04/27/18 at 12:00 Insulin Human Lispro (HumaLOG INSULIN) SEE PROTOCOL TABLE QHS SC Last administered on 04/28/18at 22:30; Start 04/27/18 at 21:00 Isosorbide Mononitrate (Imdur) 60 mg DAILY PO Last administered on 04/30/18 09:48; Start 04/27/18 at 09:00 Levothyroxine Sodium (Synthroid) 25 mcg DAILY@06 PO Last administered on 04/30/18 05:29; Start 04/27/18 at 06:00 Lisinopril (Prinivil) 40 mg DAILY@1000 PO Last administered on 04/30/18 10:27; Start 04/27/18 at 10:00 Magnesium Hydroxide (Milk Of Magnesia) 30 ml DAILYPRN PRN PO CONSTIPATION; Start 04/26/18 at 17:45 Metoprolol Succinate (TopROL XL) 75 mg DAILY PO Last administered on 04/27/18 08:48; Start 04/27/18 at 09:00; Stop 04/27/18 at 12:41; Status DC Metoprolol Succinate (TopROL XL) 100 mg DAILY PO Last administered on 04/30/18 09:48; Start 04/28/18 at 09:00 Ondansetron HCl (Zofran) 4 mg Q6HP PRN PO NAUSEA; Start 04/26/18 at 17:45 Pantoprazole Sodium (Protonix) 40 mg DAILY PO Last administered on 04/30/18 09:46; Start 04/27/18 at 09:00 Senna (Senokot) 1 tab QHS PO Last administered on 04/29/18 21:26; Start 04/26/18 at 21:00 VINCENT MERLOS MD Apr 30, 2018 12:35
--- NOTE | 2018-04-30 12:37 | IPNPDOC ---
PM&R Progress Note DATE OF SERVICE: Apr 30, 2018 In Home Sales Consultant Progress Note Subjective: Patient seen in her room, states she feels well overall and feels she is getting stronger. REVIEW OF SYSTEMS: The following is a completed review of systems and has been reviewed. Review of systems otherwise unremarkable. PAIN: Patient self reports no pain. EYES: +right visual field cut EARS, NOSE, & THROAT: +dysphagia, no rhinorrhea or hearing loss CARDIOVASCULAR: denies palpitations or chest pain PULMONARY: Negative. Denies shortness of breath GASTROINTESTINAL: Negative for diarrhea or constipation GENITOURINARY: +incontinence, denies dysuria. MUSCULOSKELETAL: RLE weakness NEUROLOGICAL: +stroke with RLE paresis HEMATOLOGICAL: Negative SKIN: loop recorder incision PSYCHIATRIC: Unremarkable. All other review of systems found to be negative. PHYSICAL EXAMINATION: VITAL SIGNS: Please see below. GENERAL: Pleasant and cooperative. No acute distress. HEENT: PERRL. Extraocular movements intact. Clear conjunctiva, poor dentition, visual field cut on the right CARDIOVASCULAR: Regular rate and rhythm. No murmurs, rubs, or gallops LUNGS: Clear to auscultation bilaterally. No wheezes. No rhonchi ABDOMEN: Soft, nontender, nondistended. Positive bowel sounds. Normal active bowel sounds NEUROLOGICAL: Alert and oriented times three. Cranial nerves II through XII grossly intact. EXTREMITIES: 5\5 strength bilateral upper extremities. 3/5 right hip flexors, knee extensors, ankle DF and EHL 5/5 strength in left lower extremity. +Babinski on the right +decreased sensation in right LE to light touch negative dysmetria SKIN: chest wall incision with sutures healing well ASSESSMENT:52-year-old F with past medical history of CVA, CAD, diastolic CHF, DM who presents status post new stroke with RLE weakness and dysphagia PLAN: 1. 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 Resp: encourage incentive spirometry, monitor for aspiration 4. Cardio: pmh HTN with diastolic and systolic CHF, continue BP meds and adjust as needed-medicine consulted 5. Endo: pmh DM, continue insulin therapy, will hold metformin 6. DVT ppx: Lovenox 7. GI ppx: Pepcid 8. : f/u admisison UA and Ucx, monitor PVRs, will trial Purewick 9. DIspo: [id number] with Dr. Warren PMD [phone], progressing towards goals Allergies Coded Allergies: No Known Allergies (Unverified , 04/26/18) Vital Signs Vital Signs Date Time Temp Pulse Resp B/P (MAP) Pulse Ox O2 Delivery O2 Flow Rate FiO2 04/30/18 09:48 71 04/30/18 09:48 137/63 04/30/18 05:34 97.7 18 95 Laboratory Data CBC/BMP Laboratory Tests 04/30/18 06:32 Red Blood Count 4.20, Mean Corpuscular Volume 93.6, Mean Corpuscular Hemoglobin 29.8, Mean Corpuscular Hemoglobin Concent 31.8 L, Red Cell Distribution Width 13.3, Neutrophils (%) (Auto) 53.8, Lymphocytes (%) (Auto) 31.9, Monocytes (%) (A uto) 9.0 H, Eosinophils (%) (Auto) 4.3 H, Basophils (%) (Auto) 0.7, Neutrophils # (Auto) 4.9, Lymphocytes # (Auto) 2.9, Monocytes # (Auto) 0.8, Eosinophils # (Auto) 0.4, Basophils # (Auto) 0.1, Calcium Level 8.7 Labs 24H Laboratory Tests 2 04/29/18 17:00: Bedside Glucose (Misc Panel) 164H 04/29/18 21:10: Bedside Glucose (Misc Panel) 123H 04/30/18 06:32: Immature Granulocyte % (Auto) 0.3, White Blood Count 9.0, Red Blood Count 4.20, Hemoglobin 12.5, Hematocrit 39.3, Mean Corpuscular Volume 93.6, Mean Corpuscular Hemoglobin 29.8, Mean Corpuscular Hemoglobin Concent 31.8L, Red Cell Distribution Width 13.3, Platelet Count 293, Neutrophils (%) (Auto) 53.8, Lymphocytes (%) (Auto) 31.9, Monocytes (%) (Auto) 9.0H, Eosinophils (%) (Auto) 4.3H, Basophils (%) (Auto) 0.7, Neutrophils # (Auto) 4.9, Lymphocytes # (Auto) 2.9, Monocytes # (Auto) 0.8, Eosinophils # (Auto) 0.4, Basophils # (Auto) 0.1, Nucleated Red Blood Cells % (auto) 0.0, Anion Gap 6L, Glomerular Filtration Rate > 60.0, Blood Urea Nitrogen 21H, Creatinine 0.89, Sodium Level 139, Potassium Level 4.3, Chloride Level 105, Carbon Dioxide Level 28, Calcium Level 8.7 04/30/18 06:40: Bedside Glucose (Misc Panel) 96 Current Medications Current Medications Current Medications Acetaminophen (Tylenol Tab) 650 mg Q4HP PRN PO fever/MILD PAIN (PS 1-4); Start 04/26/18 at 17:45 Amlodipine Besylate (Norvasc) 10 mg DAILY PO Last administered on 04/30/18at 09:48; Start 04/27/18 at 09:00 Aspirin (Aspirin Chewable) 81 mg DAILY PO Last administered on 04/30/18at 09:48; Start 04/27/18 at 09:00 Atorvastatin Calcium (Lipitor) 80 mg QHS PO Last administered on 04/29/18at 21:26; Start 04/26/18 at 21:00 Bisacodyl (Dulcolax Suppository) [address] CONSTIPATION; Start 04/26/18 at 17:45 Clopidogrel Bisulfate (PLAVix) 75 mg DAILY PO Last administered on 04/30/18at 09:46; Start 04/27/18 at 09:00 Dextrose (Dextrose 50%) 25 ml ASDIRECTED PRN IV SEE LABEL COMMENTS; Start 04/26/18 at 17:45 Dextrose (Dextrose 50%) 25 ml ASDIRECTED PRN IV SEE LABEL COMMENTS; Start 04/27/18 at 12:00; Stop 04/27/18 at 12:00; Status DC Docusate Sodium (Colace) 100 mg BID PO Last administered on 04/30/18at 09:48; Start 04/26/18 at 21:00 Fluoxetine HCl (PROzac) 20 mg DAILY PO Last administered on 04/30/18at 09:46; Start 04/27/18 at 09:00 Gabapentin (Neurontin) 100 mg BID PO Last administered on 04/27/18at 08:47; Start 04/26/18 at 21:00; Stop 04/27/18 at 13:07; Status DC Glucagon (Glucagon) 1 mg ASDIRECTED PRN SC SEE LABEL COMMENTS; Start 04/26/18 at 17:45 Glucagon (Glucagon) 1 mg ASDIRECTED PRN SC SEE LABEL COMMENTS; Start 04/27/18 at 12:00; Status UNV Glucose (Glucose) 16 GM ASDIRECTED PRN PO SEE LABEL COMMENTS; Start 04/26/18 at 17:45 Glucose (Glucose) 16 GM ASDIRECTED PRN PO SEE LABEL COMMENTS; Start 04/27/18 at 12:00; Stop 04/27/18 at 12:00; Status DC Home Med (Med Rec Complete!) ASDIRECTED XX ; Start 04/26/18 at 18:45; Stop 04/26/18 at 18:48; Status DC Insulin Detemir (Levemir Insulin) 10 units QHS SC Last administered on 04/29/18at 21:29; Start 04/26/18 at 21:00 Insulin Human Isoph/Insulin Regular (HumuLIN 70/30 INSULIN) 10 units BID@0730,1730 SC Last administered on 04/29/18at 17:38; Start 04/27/18 at 07:30 Insulin Human Lispro (HumaLOG INSULIN) 2 units AC SC Last administered on 04/19 12:21; Start 04/29/18 at 12:00 Insulin Human Lispro (HumaLOG INSULIN) SEE PROTOCOL TABLE AC SC Last administered on 04/30/18at 12:20; Start 04/27/18 at 12:00 Insulin Human Lispro (HumaLOG INSULIN) SEE PROTOCOL TABLE QHS SC Last administered on 04/28/18at 22:30; Start 04/27/18 at 21:00 Isosorbide Mononitrate (Imdur) 60 mg DAILY PO Last administered on 04/30/18at 09:48; Start 04/27/18 at 09:00 Levothyroxine Sodium (Synthroid) 25 mcg DAILY@06 PO Last administered on 04/30/18at 05:29; Start 04/27/18 at 06:00 Lisinopril (Prinivil) 40 mg DAILY@1000 PO Last administered on 04/30/18at 10:27; Start 04/27/18 at 10:00 Magnesium Hydroxide (Milk Of Magnesia) 30 ml DAILYPRN PRN PO CONSTIPATION; Start 04/26/18 at 17:45 Metoprolol Succinate (TopROL XL) 75 mg DAILY PO Last administered on 04/27/18at 08:48; Start 04/27/18 at 09:00; Stop 04/27/18 at 12:41; Status DC Metoprolol Succinate (TopROL XL) 100 mg DAILY PO Last administered on 04/30/18at 09:48; Start 04/28/18 at 09:00 Ondansetron HCl (Zofran) 4 mg Q6HP PRN PO NAUSEA; Start 04/26/18 at 17:45 Pantoprazole Sodium (Protonix) 40 mg DAILY PO Last administered on 04/30/18at 09:46; Start 04/27/18 at 09:00 Senna (Senokot) 1 tab QHS PO Last administered on 04/29/18at 21:26; Start 04/26/18 at 21:00 VINCENT MERLOS MD Apr 30, 2018 12:36
--- NOTE | 2018-04-30 13:53 | IPNPDOC ---
Date Seen The patient was seen on 04/30/18. Progress Note HPI: Patient is a 51-year-old female who presented to the ED with multiple mechanical falls over the 2 days prior to admission, and some memory changes as well as new right-sided weakness and difficulty swallowing. CT of the head showed no acute infarct or intracranial hemorrhage,old left occipital infarct was noted. She was admitted to [facility] with neurology consultation. An MRI during admission showed a left [place] ischemic stroke, making this a second stroke within a year. Per neurology recommendation, the pt was continued on aspirin, Plavix and statin. Given that this is the second stroke there was concern for cardioembolic source during admission. Patient underwent TTE that demonstrated mildly dilated left ventricle with ejection fraction of 40-45%. There was global hypokinesis without evidence of apical thrombus. Patient had aortic sclerosis, mildly dilated aortic root, no thrombus was detected. Negative bubble study. [employer] recommended CHINTAN to look at the atrial appendage, as well as a loop recorder implanted at discharge to monitor for atrial fibrillation. CHINTAN was later considered to be too risky given concern for aspiration, but a Loop recorder was placed by Dr. Lazcano to monitor for Afib. The pt was transferred to the care of Dr Teixeira, [facility], 04/27/18. The pt is noted to have residual RLE weakness and dysphagia. The patient states she is doing well. Has been out of bed with therapy. No complaints today. Denies any fevers, chills, weakness, fatigue, Headache, Chest Pain, Shortness of breath, cough, palpitations, abdominal pain, N/V/D or changes in bowel or bladder habits. PMHx: CAD DM HLD HTN hypothyroid H/O CVA 2017 PSHX: Cardiac catheterization in 05/21/2017: Normal coronaries Loop recorder PE: GEN: 52yoF, appears stated age. Well-nourished, well developed. No acute distress. Alert and oriented x 3. Pleasant, interactive. HEENT: Normocephalic, atraumatic. Sclera are nonicteric. Conjunctiva without injection. Nose midline. Nasal turbinates without bogginess. Moist mucous membranes. CHEST: Regular rate and rhythm, +S1, +S2 LUNGS: Clear to auscultation bilaterally. No wheezes, rales, or rhonchi. ABD: Round, soft, non-tender, non-distended. +Bowel sounds throughout. No rebound or guarding. EXT: No lower extremity edema appreciated. SKIN: [place], dry, warm. No rashes. NEURO: Alert and oriented x 3. UA pending. A&P: Patient is a 51-year-old female who presented to the ED with multiple mechanical falls over the 2 days prior to admission, and some memory changes as well as new right-sided weakness and difficulty swallowing. CT of the head showed no acute infarct or intracranial hemorrhage,old left occipital infarct was noted. She was admitted to [facility] with neurology consultation. An MRI during admission showed a left [place] ischemic stroke, making this a second stroke within a year. Per neurology recommendation, the pt was continued on aspirin, Plavix and statin. Given that this is the second stroke there was concern for cardioembolic source during admission. Patient underwent TTE that demonstrated mildly dilated left ventricle with ejection fraction of 40-45%. There was global hypokinesis without evidence of apical thrombus. Patient had aortic sclerosis, mildly dilated aortic root, no thrombus was detected. Negative bubble study. [employer] recommended CHINTAN to look at the atrial appendage, as well as a loop recorder implanted at discharge to monitor for atrial fibrillation. CHINTAN was later considered to be too risky given concern for aspiration, but a Loop recorder was placed by Dr. Lazcano to monitor for Afib. The pt was transferred to the care of Dr Teixeira, [facility], 04/27/18. 1. S/P CVA with residual RLE weakness and dysphagia. Mgmt as per ARU. PT/OT as per ARU. ST as per ARU. Pain control as per ARU. Bowel care as per ARU. DVT prophylaxis as per ARU. Outpt F/U with Neurology. Continue ASA81 mg daily, Plavix 75 mg daily, Lipitor 80 mg daily. 2. Hypertension Lisinopril, Norvasc, isosorbide mononitrate, metoprolol succinate. BP 137/63 3. Diabetes. CC diet SSI Levemir. 4. Coronary artery disease ASA/Toprol XL/Statin. 5. Hyperlipidemia Atorvastatin 80 mg 6. GERD. PPI. 7. hypothyroid. Continue supplement. 8. Depression. Prozac. VS, I&O, 24H, Fishbone Vital Signs/I&O Vital Signs Date Time Temp Pulse Resp B/P (MAP) Pulse Ox O2 Delivery O2 Flow Rate FiO2 04/30/18 09:48 71 04/30/18 09:48 137/63 04/30/18 05:34 97.7 18 95 I&O- Last 24 Hours up to 6 AM 04/30/18 06:00 Intake Total 720 ml Output Total 0 ml Balance 720 ml Laboratory Data 24H LABS Laboratory Tests 2 04/29/18 17:00: Bedside Glucose (Misc Panel) 164H 04/29/18 21:10: Bedside Glucose (Misc Panel) 123H 04/30/18 06:32: Immature Granulocyte % (Auto) 0.3, White Blood Count 9.0, Red Blood Count 4.20, Hemoglobin 12.5, Hematocrit 39.3, Mean Corpuscular Volume 93.6, Mean Corpuscular Hemoglobin 29.8, Mean Corpuscular Hemoglobin Concent 31.8L, Red Cell Distributi on Width 13.3, Platelet Count 293, Neutrophils (%) (Auto) 53.8, Lymphocytes (%) (Auto) 31.9, Monocytes (%) (Auto) 9.0H, Eosinophils (%) (Auto) 4.3H, Basophils (%) (Auto) 0.7, Neutrophils # (Auto) 4.9, Lymphocytes # (Auto) 2.9, Monocytes # (Auto) 0.8, Eosinophils # (Auto) 0.4, Basophils # (Auto) 0.1, Nucleated Red Blood Cells % (auto) 0.0, Anion Gap 6L, Glomerular Filtration Rate > 60.0, Blood Urea Nitrogen 21H, Creatinine 0.89, Sodium Level 139, Potassium Level 4.3, Chloride Level 105, Carbon Dioxide Level 28, Calcium Level 8.7 04/30/18 06:40: Bedside Glucose (Misc Panel) 96 04/30/18 13:39: CBC/BMP Laboratory Tests 04/30/18 06:32 Red Blood Count 4.20, Mean Corpuscular Volume 93.6, Mean Corpuscular Hemoglobin 29.8, Mean Corpuscular Hemoglobin Concent 31.8 L, Red Cell Distribution Width 13.3, Neutrophils (%) (Auto) 53.8, Lymphocytes (%) (Auto) 31.9, Monocytes (%) (Auto) 9.0 H, Eosinophils (%) (Auto) 4.3 H, Basophils (%) (Auto) 0.7, Neutrophils # (Auto) 4.9, Lymphocytes # (Auto) 2.9, Monocytes # (Auto) 0.8, Eosinophils # (Auto) 0.4, Basophils # (Auto) 0.1, Calcium Level 8.7 Elicia Patino Apr 30, 2018 13:53
[2018-04-30 14:00] VITALS: BP 131/65
[2018-04-30 14:02] LABS: APPEARANCE, URINE HAZY (CLEAR); BACTERIA, URINE AUTO 1+ (NEGATIVE); BILIRUBIN, URINE AUTO NEGATIVE (NEGATIVE); BLOOD, URINE BLOOD NEGATIVE (NEGATIVE); COLOR, URINE YELLOW (YELLOW); GLUCOSE, URINE (UA) AUTO 1+ mg/dL (NEGATIVE); KETONE, URINE AUTO NEGATIVE (NEGATIVE); LEUKOCYTE ESTERASE, URINE AUTO TRACE (NEGATIVE); MUCUS, URINE SMALL (NEGATIVE); NITRITE, URINE AUTO NEGATIVE (NEGATIVE); PROTEIN, URINE AUTO 1+ mg/dL (NEGATIVE); RBC, URINE AUTO 3 /HPF (0-3); SPECIFIC GRAVITY URINE AUTO 1.023 (1.002-1.035); SQUAMOUS EPITHELIAL CELL UR AU 1 /HPF (0-6); UROBILINOGEN, URINE AUTO 0.2 mg/dL (0.0-2.0); WBC, URINE AUTO 4 /HPF (0-3)
[2018-04-30 20:00] VITALS: BP 139/70
[2018-04-30] MEDS: LEVEMIR (INSULIN DETEMIR) 1 UNITS/0.01ML SC SCH (20:10)
[2018-04-30] MEDS: ATORVASTATIN 20 MG TAB PO SCH (20:11)
[2018-04-30] MEDS: SENNA 8.6 MG TAB (SENOKOT) PO SCH (20:11)
[2018-05-01] MEDS: LEVOTHYROXINE 25MCG TABLET (0.025MG) PO SCH (05:52)
[2018-05-01 06:00] VITALS: BP 140/65
[2018-05-01] MEDS: METOPROLOL SUCC (TopROL XL) 50MG **XL** TAB PO SCH (09:00)
[2018-05-01] MEDS: FLUoxetine 20 MG CAP PO SCH (09:16)
[2018-05-01] MEDS: PANTOPRAZOLE 40MG TAB (PROTONIX) PO SCH (09:16)
[2018-05-01] MEDS: amLODIPine 10 MG TAB PO SCH (09:17)
[2018-05-01] MEDS: ASPIRIN 81 MG CHEW TABLET PO SCH (09:17)
[2018-05-01] MEDS: ISOSORBIDE MON. (IMDUR) 60 MG XR TAB PO SCH (09:17)
[2018-05-01] MEDS: CLOPIDOGREL 75 MG TAB PO SCH (09:17)
[2018-05-01] MEDS: DOCUSATE SODIUM 100 MG CAP PO SCH ×2 (09:17→20:40)
[2018-05-01] MEDS: HumaLOG INSULIN (NovoLOG) PER UNIT SC SCH ×7 (09:19→20:41)
[2018-05-01] MEDS: HumuLIN (NovoLIN)70/30 INSULIN INJ PER UNIT SC SCH ×2 (09:20→17:30)
[2018-05-01] MEDS: LISINOPRIL 40 MG TAB PO SCH (09:27)
[2018-05-01 14:00] VITALS: BP 119/57
--- NOTE | 2018-05-01 14:12 | IPNPDOC ---
Date Seen The patient was seen on 05/01/18. Progress Note HPI: Patient is a 51-year-old female who presented to the ED with multiple mechanical falls over the 2 days prior to admission, and some memory changes as well as new right-sided weakness and difficulty swallowing. CT of the head showed no acute infarct or intracranial hemorrhage,old left occipital infarct was noted. She was admitted to [facility] with neurology consultation. An MRI during admission showed a left TYS[place] ischemic stroke, making this a second stroke within a year. Per neurology recommendation, the pt was continued on aspirin, Plavix and statin. Given that this is the second stroke there was concern for cardioembolic source during admission. Patient underwent TTE that demonstrated mildly dilated left ventricle with ejection fraction of 40-45%. There was global hypokinesis without evidence of apical thrombus. Patient had aortic sclerosis, mildly dilated aortic root, no thrombus was detected. Negative bubble study. Cloth Picker recommended CHINTAN to look at the atrial appendage, as well as a loop recorder implanted at discharge to monitor for atrial fibrillation. CHINTAN was later considered to be too risky given concern for aspiration, but a Loop nick rder was placed by Dr. Lazcano to monitor for Afib. The pt was transferred to the care of Dr Teixeira, [facility], 04/27/18. The pt is n oted to have residual RLE weakness and dysphagia. The patient states she is doing well. She is out of bed to wheelchair. Denies any fevers, chills, weakness, fatigue, Headache, Chest Pain, Shortness of breath, cough, palpitations, abdominal pain, N/V/D or changes in bowel or bladder habits. PMHx: CAD DM HLD HTN hypothyroid H/O CVA 2017 PSHX: Cardiac catheterization in 05/21/2017: Normal coronaries Loop recorder PE: GEN: 52yoF, appears stated age. Well-nourished, well developed. No acute distress. Alert and oriented x 3. Pleasant, interactive. HEENT: Normocephalic, atraumatic. Sclera are nonicteric. Conjunctiva without injection. Nose midline. Nasal turbinates without bogginess. Moist mucous membranes. CHEST: Regular rate and rhythm, +S1, +S2 LUNGS: Clear to auscultation bilaterally. No wheezes, rales, or rhonchi. ABD: Round, soft, non-tender, non-distended. +Bowel sounds throughout. No rebound or guarding. EXT: No lower extremity edema appreciated. SKIN: [place], dry, warm. No rashes. NEURO: Alert and oriented x 3. UC pending. A&P: Patient is a 51-year-old female who presented to the ED with multiple mechanical falls over the 2 days prior to admission, and some memory changes as well as new right-sided weakness and difficulty swallowing. CT of the head showed no acute infarct or intracranial hemorrhage,old left occipital infarct was noted. She was admitted to [facility] with neurology consultation. An MRI during admission showed a left TYSON ischemic stroke, making this a second stroke within a year. Per neurology recommendation, the pt was continued on aspirin, Plavix and statin. Given that this is the second stroke there was concern for cardioembolic source during admission. Patient underwent TTE that demonstrated mildly dilated left ventricle with ejection fraction of 40-45%. There was global hypokinesis without evidence of apical thrombus. Patient had aortic sclerosis, mildly dilated aortic root, no thrombus was detected. Negative bubble study. Cloth Picker recommended CHINTAN to look at the atrial appendage, as well as a loop recorder implanted at discharge to monitor for atrial fibrillation. CHINTAN was later considered to be too risky given concern for aspiration, but a Loop recorder was placed by Dr. Lazcano to monitor for Afib. The pt was transferred to the care of Dr Teixeira, [facility], 04/27/18. 1. S/P CVA with residual RLE weakness and dysphagia. Mgmt as per ARU. PT/OT as per ARU. ST as per ARU. Pain control as per ARU. Bowel care as per ARU. DVT prophylaxis as per ARU. Outpt F/U with Neurology. Continue ASA81 mg daily, Plavix 75 mg daily, Lipitor 80 mg daily. 2. Hypertension Lisinopril 40 mg daily, Norvasc 10 mg daily, isosorbide mononitrate 60 mg daily, metoprolol succinate 100 mg daily with hold parameters. Monitor. 3. Diabetes. CC diet SSI Levemir. 4. Coronary artery disease ASA/Toprol XL/Statin. 5. Hyperlipidemia Atorvastatin 80 mg 6. GERD. PPI. 7. hypothyroid. Continue supplement. 8. Depression. Prozac. VS, I&O, 24H, Fishbone Vital Signs/I&O Vital Signs Date Time Temp Pulse Resp B/P (MAP) Pulse Ox O2 Delivery O2 Flow Rate FiO2 05/01/18 09:17 140/65 05/01/18 09:17 57 05/01/18 06:00 97.2 18 95 I&O- Last 24 Hours up to 6 AM 05/01/18 06:00 Intake Total 380 ml Output Total 210 ml Balance 170 ml Laboratory Data 24H LABS Laboratory Tests 2 04/30/18 16:34: Bedside Glucose (Misc Panel) 113H 04/30/18 20:00: Bedside Glucose (Misc Panel) 131H 05/01/18 05:42: Bedside Glucose (Misc Panel) 112H 05/01/18 11:42: Bedside Glucose (Misc Panel) 165H Microbiology Microbiology 04/30/18 Urine Culture, Received Pending Elicia Patino May 01, 2018 14:12
[2018-05-01 14:19] VITALS: BP 140/65
[2018-05-01 20:00] VITALS: BP 136/63
[2018-05-01] MEDS: SENNA 8.6 MG TAB (SENOKOT) PO SCH (20:40)
[2018-05-01] MEDS: LEVEMIR (INSULIN DETEMIR) 1 UNITS/0.01ML SC SCH (20:40)
[2018-05-01] MEDS: ATORVASTATIN 20 MG TAB PO SCH (20:40)
--- NOTE | 2018-05-01 21:26 | IPNPDOC ---
PM&R Progress Note DATE OF SERVICE: May 01, 2018 Appraisal Specialist Progress Note Subjective: Patient seen after therapy ccomplainign of a bitemporal headache, reports she is drinking fluids, and denies nausea. She felt dizzy with standing for which orthostatics were negative and later reported feeling no dizziness or headache after Tylenol. REVIEW OF SYSTEMS: The following is a completed review of systems and has been reviewed. Review of systems otherwise unremarkable. PAIN: Patient self reports no pain. EYES: +right visual field cut EARS, NOSE, & THROAT: +dysphagia, no rhinorrhea or hearing loss CARDIOVASCULAR: denies palpitations or chest pain PULMONARY: Negative. Denies shortness of breath GASTROINTESTINAL: Negative for diarrhea or constipation GENITOURINARY: +incontinence, denies dysuria. MUSCULOSKELETAL: RLE weakness NEUROLOGICAL: +stroke with RLE paresis HEMATOLOGICAL: Negative SKIN: loop recorder incision PSYCHIATRIC: Unremarkable. All other review of systems found to be negative. PHYSICAL EXAMINATION: VITAL SIGNS: Please see below. GENERAL: Pleasant and cooperative. No acute distress. HEENT: PERRL. Extraocular movements intact. Clear conjunctiva, poor dentition, visual field cut on the right CARDIOVASCULAR: Regular rate and rhythm. No murmurs, rubs, or gallops LUNGS: Clear to auscultation bilaterally. No wheezes. No rhonchi ABDOMEN: Soft, nontender, nondistended. Positive bowel sounds. Normal active bowel sounds NEUROLOGICAL: Alert and oriented times three. Cranial nerves II through XII grossly intact. EXTREMITIES: 5\5 strength bilateral upper extremities. 3/5 right hip flexors, knee extensors, ankle DF and EHL 5/5 strength in left lower extremity. +Babinski on the right +decreased sensation in right LE to light touch negative dysmetria SKIN: chest wall incision with sutures healing well ASSESSMENT:52-year-old F with past medical history of CVA, CAD, diastolic CHF, DM who presents status post new stroke with RLE weakness and dysphagia PLAN: 1. Rehab: PT/OT TRAINING INTERN, assess fo DME, patient with significant right sided inattention due to visual field cut which is improving, upgraded to mechanical soft diet and thins 2. Neuro: s/p recent [place] stroke with RLE weakness and dysphagia, right sided homonymous hemianopsia most likely from old left [employer] stroke -Loop recorder placed to rule out Afib, Bubble study for PFO/ASD negative on TTE, CHINTAN not performed to rule out LA appendage thrombus given high risk for aspirations-will need cardiology follow-up for LOOP and aortic aneurysm noted on recent ECHO -continue ASa and Plavix for 3 months, then in June switch to ASA only, continue statin for secondary stroke prevention -Prozac for mood and motor recovery 3. Resp: encourage incentive spirometry, monitor for aspiration 4. Cardio: pmh HTN with diastolic and systolic CHF, continue BP meds and adjust as needed-medicine consulted 5. Endo: pmh DM, continue insulin therapy, will hold metformin-well controlled 6. DVT ppx: Lovenox 7. GI ppx: Pepcid 8. :admisison UA suspicious for UTI, awaiting Ucx, denies dysuria, monitor PVRs 9. DIspo: [id number] with Dr. Warren PMD [phone], progressing towards goals Allergies Coded Allergies: No Known Allergies (Unverified , 04/26/18) Vital Signs Vital Signs Date Time Temp Pulse Resp B/P (MAP) Pulse Ox O2 Delivery O2 Flow Rate FiO2 05/01/18 14:19 97.2 57 18 140/65 95 Laboratory Data Labs 24H Laboratory Tests 2 05/01/18 05:42: Bedside Glucose (Misc Panel) 112H 05/01/18 11:42: Bedside Glucose (Misc Panel) 165H 05/01/18 16:15: Bedside Glucose (Misc Panel) 119H 05/01/18 19:54: Bedside Glucose (Misc Panel) 153H Microbiology Microbiology 04/30/18 Urine Culture, Received Pending Current Medications Current Medications Current Medications Acetaminophen (Tylenol Tab) 650 mg Q4HP PRN PO fever/MILD PAIN (PS 1-4); Start 04/26/18 at 17:45 Amlodipine Besylate (Norvasc) 10 mg DAILY PO Last administered on 05/01/18at 09:17; Start 04/27/18 at 09:00 Aspirin (Aspirin Chewable) 81 mg DAILY PO Last administered on 05/01/18at 09:17; Start 04/27/18 at 09:00 Atorvastatin Calcium (Lipitor) 80 mg QHS PO Last administered on 05/01/18at 20:40; Start 04/26/18 at 21:00 Bisacodyl (Dulcolax Suppository) 10 mg DAILYPRN PRN MT CONSTIPATION; Start 04/26/18 at 17:45 Clopidogrel Bisulfate (PLAVix) 75 mg DAILY PO Last administered on 05/01/18at 09:17; Start 04/27/18 at 09:00 Dextrose (Dextrose 50%) 25 ml ASDIRECTED PRN IV SEE LABEL COMMENTS; Start 04/26/18 at 17:45 Dextrose (Dextrose 50%) 25 ml ASDIRECTED PRN IV SEE LABEL COMMENTS; Start 04/27/18 at 12:00; Stop 04/27/18 at 12:00; Status DC Docusate Sodium (Colace) 100 mg BID PO Last administered on 05/01/18at 20:40; Start 04/26/18 at 21:00 Fluoxetine HCl (PROzac) 20 mg DAILY PO Last administered on 05/01/18at 09:16; Start 04/27/18 at 09:00 Gabapentin (Neurontin) 100 mg BID PO Last administered on 04/27/18at 08:47; Start 04/26/18 at 21:00; Stop 04/27/18 at 13:07; Status DC Glucagon (Glucagon) 1 mg ASDIRECTED PRN SC SEE LABEL COMMENTS; Start 04/26/18 at 17:45 Glucagon (Glucagon) 1 mg ASDIRECTED PRN SC SEE LABEL COMMENTS; Start 04/27/18 at 12:00; Status UNV Glucose (Glucose) 16 GM ASDIRECTED PRN PO SEE LABEL COMMENTS; Start 04/26/18 at 17:45 Glucose (Glucose) 16 GM ASDIRECTED PRN PO SEE LABEL COMMENTS; Start 04/27/18 at 12:00; Stop 04/27/18 at 12:00; Status DC Home Med (Med Rec Complete!) ASDIRECTED XX ; Start 04/26/18 at 18:45; Stop 04/26/18 at 18:48; Status DC Insulin Detemir (Levemir Insulin) 10 units QHS SC Last administered on 05/01/18at 20:40; Start 04/26/18 at 21:00 Insulin Human Isoph/Insulin Regular (HumuLIN 70/30 INSULIN) 10 units BID@0730,1730 SC Last administered on 05/01/18at 17:30; Start 04/27/18 at 07:30 Insulin Human Lispro (HumaLOG INSULIN) 2 units AC SC Last administered on 05/01/18 18:11; Start 04/29/18 at 12:00 Insulin Human Lispro (HumaLOG INSULIN) SEE PROTOCOL TABLE AC SC Last administered on 05/01/18 18:10; Start 04/27/18 at 12:00 Insulin Human Lispro (HumaLOG INSULIN) SEE PROTOCOL TABLE QHS SC Last administered on 04/28/18 22:30; Start 04/27/18 at 21:00 Isosorbide Mononitrate (Imdur) 60 mg DAILY PO Last administered on 05/01/18 09:17; Start 04/27/18 at 09:00 Levothyroxine Sodium (Synthroid) 25 mcg DAILY@06 PO Last administered on 05/01/18 05:52; Start 04/27/18 at 06:00 Lisinopril (Prinivil) 40 mg DAILY@1000 PO Last administered on 05/01/18 09:27; Start 04/27/18 at 10:00 Magnesium Hydroxide (Milk Of Magnesia) 30 ml DAILYPRN PRN PO CONSTIPATION; Start 04/26/18 at 17:45 Metoprolol Succinate (TopROL XL) 75 mg DAILY PO Last administered on 04/27/18 08:48; Start 04/27/18 at 09:00; Stop 04/27/18 at 12:41; Status DC Metoprolol Succinate (TopROL XL) 100 mg DAILY PO Last administered on 04/30/18 09:48; Start 04/28/18 at 09:00 Ondansetron HCl (Zofran) 4 mg Q6HP PRN PO NAUSEA; Start 04/26/18 at 17:45 Pantoprazole Sodium (Protonix) 40 mg DAILY PO Last administered on 05/01/18 09:16; Start 04/27/18 at 09:00 Senna (Senokot) 1 tab QHS PO Last administered on 05/01/18 20:40; Start 04/26/18 at 21:00 VINCENT MERLOS MD May 01, 2018 21:26
[2018-05-02] MEDS: LEVOTHYROXINE 25MCG TABLET (0.025MG) PO SCH (05:39)
[2018-05-02 06:00] VITALS: BP 154/80
[2018-05-02] MEDS: HumaLOG INSULIN (NovoLOG) PER UNIT SC SCH ×6 (07:30→20:55)
[2018-05-02] MEDS: amLODIPine 10 MG TAB PO SCH (09:26)
[2018-05-02] MEDS: FLUoxetine 20 MG CAP PO SCH (09:26)
[2018-05-02] MEDS: ASPIRIN 81 MG CHEW TABLET PO SCH (09:26)
[2018-05-02] MEDS: METOPROLOL SUCC (TopROL XL) 50MG **XL** TAB PO SCH (09:26)
[2018-05-02] MEDS: DOCUSATE SODIUM 100 MG CAP PO SCH ×2 (09:26→20:54)
[2018-05-02] MEDS: CLOPIDOGREL 75 MG TAB PO SCH (09:27)
[2018-05-02] MEDS: LISINOPRIL 40 MG TAB PO SCH (09:27)
[2018-05-02] MEDS: PANTOPRAZOLE 40MG TAB (PROTONIX) PO SCH (09:27)
[2018-05-02] MEDS: ISOSORBIDE MON. (IMDUR) 60 MG XR TAB PO SCH (10:30)
[2018-05-02] MEDS: HumuLIN (NovoLIN)70/30 INSULIN INJ PER UNIT SC SCH ×2 (10:30→17:21)
--- NOTE | 2018-05-02 13:13 | IPNPDOC ---
Date Seen The patient was seen on 05/02/18. Progress Note HPI: Patient is a 51-year-old female who presented to the ED with multiple mechanical falls over the 2 days prior to admission, and some memory changes as well as new right-sided weakness and difficulty swallowing. CT of the head showed no acute infarct or intracranial hemorrhage,old left occipital infarct was noted. She was admitted to [facility] with neurology consultation. An MRI during admission showed a left TYS[place] ischemic stroke, making this a second stroke within a year. Per neurology recommendation, the pt was continued on aspirin, Plavix and statin. Given that this is the second stroke there was concern for cardioembolic source during admission. Patient underwent TTE that demonstrated mildly dilated left ventricle with ejection fraction of 40-45%. There was global hypokinesis without evidence of apical thrombus. Patient had aortic sclerosis, mildly dilated aortic root, no thrombus was detected. Negative bubble study. Acid Pumper recommended CHINTAN to look at the atrial appendage, as well as a loop recorder implanted at discharge to monitor for atrial fibrillation. CHINTAN was later considered to be too risky given concern for aspiration, but a Loop nick rder was placed by Dr. Lazcano to monitor for Afib. The pt was transferred to the care of Dr Teixeira, [facility], 04/27/18. The pt is n oted to have residual RLE weakness and dysphagia. The patient is out of bed. Has been participating with physical therapy. States she feels stronger. Denies any fevers, chills, weakness, fatigue, Headache, Chest Pain, Shortness of breath, cough, palpitations, abdominal pain, N/V/D or changes in bowel or bladder habits. PMHx: CAD DM HLD HTN hypothyroid H/O CVA 2017 PSHX: Cardiac catheterization in 05/21/2017: Normal coronaries Loop recorder PE: GEN: 52yoF, appears stated age. Well-nourished, well developed. No acute distress. Alert and oriented x 3. Pleasant, interactive. HEENT: Normocephalic, atraumatic. Sclera are nonicteric. Conjunctiva without injection. Nose midline. Nasal turbinates without bogginess. Moist mucous membr anes. CHEST: Regular rate and rhythm, +S1, +S2 LUNGS: Clear to auscultation bilaterally. No wheezes, rales, or rhonchi. ABD: Round, soft, non-tender, non-distended. +Bowel sounds throughout. No rebound or guarding. EXT: No lower extremity edema appreciated. SKIN: [place], dry, warm. No rashes. NEURO: Alert and oriented x 3. A&P: Patient is a 51-year-old female who presented to the ED with multiple mechanical falls over the 2 days prior to admission, and some memory changes as well as new right-sided weakness and difficulty swallowing. CT of the head showed no acute infarct or intracranial hemorrhage,old left occipital infarct wa s noted. She was admitted to [facility] with neurology consultation. An MRI during admission showed a left TYS[place] ischemic stroke, making this a second stroke within a year. Per neurology recommendation, the pt was continued on aspirin, Plavix and statin. Given that this is the second stroke there was concern for cardioembolic source during admission. Patient underwent TTE that demonstrated mildly dilated left ventricle with ejection fraction of 40-45%. There was global hypokinesis without evidence of apical thrombus. Patient had aortic sclerosis, mildly dilated aortic root, no thrombus was detected. Negative bubble study. Acid Pumper recommended CHINTAN to look at the atrial appendage, as well as a loop recorder implanted at discharge to monitor for atrial fibrillation. CHINTAN was later considered to be too risky given concern for aspiration, but a Loop recorder was placed by Dr. Lazcano to monitor for Afib. The pt was transferred to the care of Dr Teixeira, [facility], 04/27/18. 1. S/P CVA with residual RLE weakness and dysphagia. Mgmt as per ARU. PT/OT as per ARU. ST as per ARU. Pain control as per ARU. Bowel care as per ARU. DVT prophylaxis as per ARU. Outpt F/U with Neurology. Continue ASA81 mg daily, Plavix 75 mg daily, Lipitor 80 mg daily. 2. Hypertension Lisinopril 40 mg daily, Norvasc 10 mg daily, isosorbide mononitrate 60 mg daily, metoprolol succinate 100 mg daily with hold parameters. Monitor. SBP 119-154 3. Diabetes. CC diet SSI Levemir. BS [id number] 4. Coronary artery disease ASA/Toprol XL/Statin. 5. Hyperlipidemia Atorvastatin 80 mg 6. GERD. PPI. 7. hypothyroid. Continue supplement. 8. Depression. Prozac. VS, I&O, 24H, Fishbone Vital Signs/I&O Vital Signs Date Time Temp Pulse Resp B/P (MAP) Pulse Ox O2 Delivery O2 Flow Rate FiO2 05/02/18 10:30 154/80 05/02/18 09:26 60 05/02/18 06:00 97.0 18 96 I&O- Last 24 Hours up to 6 AM 05/02/18 06:00 Intake Total 760 ml Output Total 0 ml Balance 760 ml Laboratory Data 24H LABS Laboratory Tests 2 05/01/18 16:15: Bedside Glucose (Misc Panel) 119H 05/01/18 19:54: Bedside Glucose (Misc Panel) 153H 05/02/18 06:11: Bedside Glucose (Misc Panel) 91 05/02/18 11:53: Bedside Glucose (Misc Panel) 199H Microbiology Microbiology 04/30/18 Urine Culture - Final, Complete Lactobacillus Species Yeast Like Organism Elicia Patino May 02, 2018 13:13
--- NOTE | 2018-05-02 13:29 | IPNPDOC ---
PM&R Progress Note DATE OF SERVICE: May 02, 2018 Band Booker Progress Note Subjective: Patient able to walk in therapy without shoe lift and without dizziness or headache. She reports she has no pain today and denies urinary or bowel issues. REVIEW OF SYSTEMS: The following is a completed review of systems and has been reviewed. Review of systems otherwise unremarkable. PAIN: Patient self reports no pain. EYES: +right visual field cut EARS, NOSE, & THROAT: +dysphagia, no rhinorrhea or hearing loss CARDIOVASCULAR: denies palpitations or chest pain PULMONARY: Negative. Denies shortness of breath GASTROINTESTINAL: Negative for diarrhea or constipation GENITOURINARY: +incontinence (improving), denies dysuria. MUSCULOSKELETAL: RLE weakness NEUROLOGICAL: +stroke with RLE paresis HEMATOLOGICAL: Negative SKIN: loop recorder incision PSYCHIATRIC: Unremarkable. All other review of systems found to be negative. PHYSICAL EXAMINATION: VITAL SIGNS: Please see below. GENERAL: Pleasant and cooperative. No acute distress. HEENT: PERRL. Extraocular movements intact. Clear conjunctiva, poor dentition, visual field cut on the right CARDIOVASCULAR: Regular rate and rhythm. No murmurs, rubs, or gallops LUNGS: Clear to auscultation bilaterally. No wheezes. No rhonchi ABDOMEN: Soft, nontender, nondistended. Positive bowel sounds. Normal active bow el sounds NEUROLOGICAL: Alert and oriented times three. Cranial nerves II through XII grossly intact. EXTREMITIES: 5\5 strength bilateral upper extremities. 3/5 right hip flexors, knee extensors, ankle DF and EHL 5/5 strength in left lower extremity. +Babinski on the right +decreased sensation in right LE to light touch negative dysmetria SKIN: chest wall incision with sutures healing well ASSESSMENT:52-year-old F with past medical history of CVA, CAD, diastolic CHF, DM who presents status post new stroke with RLE weakness and dysphagia PLAN: 1. 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 Resp: encourage incentive spirometry, monitor for aspiration 4. Cardio: pmh HTN with diastolic and systolic CHF, continue BP meds and adjust as needed-medicine consulted 5. Endo: pmh DM, continue insulin therapy, will hold metformin-well controlled 6. DVT ppx: Lovenox 7. GI ppx: Pepcid 8. :admisison UA suspicious for UTI, Ucx positive for yeat, will give one time dose Diflucan, denies dysuria, monitor PVRs 9. DIspo: [id number]-[id number] with Dr. Warren PMD [phone], progressing towards goals Allergies Coded Allergies: No Known Allergies (Unverified , 04/26/18) Vital Signs Vital Signs Date Time Temp Pulse Resp B/P (MAP) Pulse Ox O2 Delivery O2 Flow Rate FiO2 05/02/18 10:30 154/80 05/02/18 09:26 60 05/02/18 06:00 97.0 18 96 Laboratory Data Labs 24H Laboratory Tests 2 05/01/18 16:15: Bedside Glucose (Misc Panel) 119H 05/01/18 19:54: Bedside Glucose (Misc Panel) 153H 05/02/18 06:11: Bedside Glucose (Misc Panel) 91 05/02/18 11:53: Bedside Glucose (Misc Panel) 199H Microbiology Microbiology 04/30/18 Urine Culture - Final, Complete Lactobacillus Species Yeast Like Organism Current Medications Current Medications Current Medications Acetaminophen (Tylenol Tab) 650 mg Q4HP PRN PO fever/MILD PAIN (PS 1-4); Start 04/26/18 at 17:45 Amlodipine Besylate (Norvasc) 10 mg DAILY PO Last administered on 05/02/18at 09:26; Start 04/27/18 at 09:00 Aspirin (Aspirin Chewable) 81 mg DAILY PO Last administered on 05/02/18at 09:26; Start 04/27/18 at 09:00 Atorvastatin Calcium (Lipitor) 80 mg QHS PO Last administered on 05/01/18at 20: 40; Start 04/26/18 at 21:00 Bisacodyl (Dulcolax Suppository) 10 mg DAILYPRN PRN [place] CONSTIPATION; Start 04/26/18 at 17:45 Clopidogrel Bisulfate (PLAVix) 75 mg DAILY PO Last administered on 05/02/18at 09:27; Start 04/27/18 at 09:00 Dextrose (Dextrose 50%) 25 ml ASDIRECTED PRN IV SEE LABEL COMMENTS; Start 04/26/18 at 17:45 Dextrose (Dextrose 50%) 25 ml ASDIRECTED PRN IV SEE LABEL COMMENTS; Start 04/27/18 at 12:00; Stop 04/27/18 at 12:00; Status DC Docusate Sodium (Colace) 100 mg BID PO Last administered on 05/02/18at 09:26; Start 04/26/18 at 21:00 Fluoxetine HCl (PROzac) 20 mg DAILY PO Last administered on 05/02/18at 09:26; Start 04/27/18 at 09:00 Gabapentin (Neurontin) 100 mg BID PO Last administered on 04/27/18at 08:47; Start 04/26/18 at 21:00; Stop 04/27/18 at 13:07; Status DC Glucagon (Glucagon) 1 mg ASDIRECTED PRN SC SEE LABEL COMMENTS; Start 04/26/18 at 17:45 Glucagon (Glucagon) 1 mg ASDIRECTED PRN SC SEE LABEL COMMENTS; Start 04/27/18 at 12:00; Status UNV Glucose (Glucose) 16 GM ASDIRECTED PRN PO SEE LABEL COMMENTS; Start 04/26/18 at 17:45 Glucose (Glucose) 16 GM ASDIRECTED PRN PO SEE LABEL COMMENTS; Start 04/27/18 at 12:00; Stop 04/27/18 at 12:00; Status DC Home Med (Med Rec Complete!) ASDIRECTED XX ; Start 04/26/18 at 18:45; Stop 04/26/18 at 18:48; Status DC Insulin Detemir (Levemir Insulin) 10 units QHS SC Last administered on 05/01/18at 20:40; Start 04/26/18 at 21:00 Insulin Human Isoph/Insulin Regular (HumuLIN 70/30 INSULIN) 10 units BID@0730,1730 SC Last administered on 05/02/18 10:30; Start 04/27/18 at 07:30 Insulin Human Lispro (HumaLOG INSULIN) 2 units AC SC Last administered on 05/02/18 12:37; Start 04/29/18 at 12:00 Insulin Human Lispro (HumaLOG INSULIN) SEE PROTOCOL TABLE AC SC Last administered on 05/02/18 12:37; Start 04/27/18 at 12:00 Insulin Human Lispro (HumaLOG INSULIN) SEE PROTOCOL TABLE QHS SC Last administered on 04/28/18 22:30; Start 04/27/18 at 21:00 Isosorbide Mononitrate (Imdur) 60 mg DAILY PO Last administered on 05/02/18 10:30; Start 04/27/18 at 09:00 Levothyroxine Sodium (Synthroid) 25 mcg DAILY@06 PO Last administered on 05/02/18 05:39; Start 04/27/18 at 06:00 Lisinopril (Prinivil) 40 mg DAILY@1000 PO Last administered on 05/02/18 09:27; Start 04/27/18 at 10:00 Magnesium Hydroxide (Milk Of Magnesia) 30 ml DAILYPRN PRN PO CONSTIPATION; Start 04/26/18 at 17:45 Metoprolol Succinate (TopROL XL) 75 mg DAILY PO Last administered on 04/27/18 08:48; Start 04/27/18 at 09:00; Stop 04/27/18 at 12:41; Status DC Metoprolol Succinate (TopROL XL) 100 mg DAILY PO Last administered on 05/02/18 09:26; Start 04/28/18 at 09:00 Ondansetron HCl (Zofran) 4 mg Q6HP PRN PO NAUSEA; Start 04/26/18 at 17:45 Pantoprazole Sodium (Protonix) 40 mg DAILY PO Last administered on 05/02/18 09:27; Start 04/27/18 at 09:00 Senna (Senokot) 1 tab QHS PO Last administered on 05/01/18 20:40; Start 04/26/18 at 21:00 VINCENT MERLOS MD May 02, 2018 13:29
[2018-05-02 14:00] VITALS: BP 128/72
[2018-05-02] MEDS ORDERED: FLUCONAZOLE 50MG TABLET PO ONE (14:00)
[2018-05-02 20:38] VITALS: BP 117/63
[2018-05-02] MEDS: SENNA 8.6 MG TAB (SENOKOT) PO SCH (20:54)
[2018-05-02] MEDS: ATORVASTATIN 20 MG TAB PO SCH (20:54)
[2018-05-03] MEDS: LEVOTHYROXINE 25MCG TABLET (0.025MG) PO SCH (05:38)
[2018-05-03 05:49] VITALS: BP 136/66
[2018-05-03] MEDS: HumaLOG INSULIN (NovoLOG) PER UNIT SC SCH ×4 (10:38→21:00)
[2018-05-03] MEDS: METOPROLOL SUCC (TopROL XL) 50MG **XL** TAB PO SCH (10:39)
[2018-05-03] MEDS: LISINOPRIL 40 MG TAB PO SCH (10:39)
[2018-05-03] MEDS: FLUoxetine 20 MG CAP PO SCH (10:39)
[2018-05-03] MEDS: DOCUSATE SODIUM 100 MG CAP PO SCH ×2 (10:39→21:00)
[2018-05-03] MEDS: PANTOPRAZOLE 40MG TAB (PROTONIX) PO SCH (10:40)
[2018-05-03] MEDS: ASPIRIN 81 MG CHEW TABLET PO SCH (10:40)
[2018-05-03] MEDS: CLOPIDOGREL 75 MG TAB PO SCH (10:40)
[2018-05-03] MEDS: amLODIPine 10 MG TAB PO SCH (10:40)
[2018-05-03] MEDS: ISOSORBIDE MON. (IMDUR) 60 MG XR TAB PO SCH (10:44)
[2018-05-03] MEDS: HumuLIN (NovoLIN)70/30 INSULIN INJ PER UNIT SC SCH ×2 (10:45→17:54)
--- NOTE | 2018-05-03 13:49 | IPNPDOC ---
Date Seen The patient was seen on 05/03/18. Progress Note HPI: Patient is a 51-year-old female who presented to the ED with multiple mechanical falls over the 2 days prior to admission, and some memory changes as well as new right-sided weakness and difficulty swallowing. CT of the head showed no acute infarct or intracranial hemorrhage,old left occipital infarct was noted. She was admitted to [facility] with neurology consultation. An MRI during admission showed a left [place] ischemic stroke, making this a second stroke within a year. Per neurology recommendation, the pt was continued on aspirin, Plavix and statin. Given that this is the second stroke there was concern for cardioembolic source during admission. Patient underwent TTE that demonstrated mildly dilated left ventricle with ejection fraction of 40-45%. There was global hypokinesis without evidence of apical thrombus. Patient had aortic sclerosis, mildly dilated aortic root, no thrombus was detected. Negative bubble study. External Relations Manager recommended CHINTAN to look at the atrial appendage, as well as a loop recorder implanted at discharge to monitor for atrial fibrillation. CHINTAN was later considered to be too risky given concern for aspiration, but a Loop nick rder was placed by Dr. Lazcano to monitor for Afib. The pt was transferred to the care of Dr Teixeira, [facility], 04/27/18. The pt is n oted to have residual RLE weakness and dysphagia. Patient is currently out of bed to chair. She states she feels like she is g aining strength in the right lower extremity. Feeling tired from therapy. Denies any fevers, chills, weakness, fatigue, Headache, Chest Pain, Shortness of breath, cough, palpitations, abdominal pain, N/V/D or changes in bowel or bladder habits. PMHx: CAD DM HLD HTN hypothyroid H/O CVA 2017 PSHX: Cardiac catheterization in 05/21/2017: Normal coronaries Loop recorder PE: GEN: 52yoF, appears stated age. Well-nourished, well developed. No acute distress. Alert and oriented x 3. Pleasant, interactive. HEENT: Normocephalic, atraumatic. Sclera are nonicteric. Conjunctiva without injection. Nose midline. Nasal turbinates without bogginess. Moist mucous membranes. CHEST: Regular rate and rhythm, +S1, +S2 LUNGS: Clear to auscultation bilaterally. No wheezes, rales, or rhonchi. ABD: Round, soft, non-tender, non-distended. +Bowel sounds throughout. No rebound or guarding. EXT: No lower extremity edema appreciated. SKIN: [place], dry, warm. No rashes. NEURO: Alert and oriented x 3. A&P: Patient is a 51-year-old female who presented to the ED with multiple mechanical falls over the 2 days prior to admission, and some memory changes as well as new right-sided weakness and difficulty swallowing. CT of the head showed no acute infarct or intracranial hemorrhage,old left occipital infarct was noted. She was admitted to [facility] with neurology consultation. An MRI during admission showed a left [place] ischemic stroke, making this a second stroke within a year. Per neurology recommendation, the pt was continued on aspirin, Plavix and statin. Given that this is the second stroke there was concern for cardioembolic source during admission. Patient underwent TTE that demonstrated mildly dilated left ventricle with ejection fraction of 40-45%. There was global hypokinesis without evidence of apical thrombus. Patient had aortic sclerosis, mildly dilated aortic root, no thrombus was detected. Negative bubble study. External Relations Manager recommended CHINTAN to look at the atrial appendage, as well as a loop recorder implanted at discharge to monitor for atrial fibrillation. CHINTAN was later considered to be too risky given concern for aspiration, but a Loop recorder was placed by Dr. Lazcano to monitor for Afib. The pt was transferred to the care of Dr Teixeira, [facility], 04/27/18. 1. S/P CVA with residual RLE weakness and dysphagia. Mgmt as per ARU. PT/OT as per ARU. ST as per ARU. Pain control as per ARU. Bowel care as per ARU. DVT prophylaxis as per ARU. Outpt F/U with Neurology. Continue ASA81 mg daily, Plavix 75 mg daily, Lipitor 80 mg daily. 2. Hypertension Lisinopril 40 mg daily, Norvasc 10 mg daily, isosorbide mononitrate 60 mg daily, metoprolol succinate 100 mg daily with hold parameters. 3. Diabetes. CC diet SSI Insulin adjusting as per Dr. Teixeira. 4. Coronary artery disease ASA/Toprol XL/Statin. 5. Hyperlipidemia Atorvastatin 80 mg 6. GERD. PPI. 7. hypothyroid. Continue supplement. 8. Depression. Prozac. VS, I&O, 24H, Fishbone Vital Signs/I&O Vital Signs Date Time Temp Pulse Resp B/P (MAP) Pulse Ox O2 Delivery O2 Flow Rate FiO2 05/03/18 10:39 62 132/66 05/03/18 05:49 97.5 18 94 I&O- Last 24 Hours up to 6 AM 05/03/18 06:00 Intake Total 1480 ml Output Total 0 ml Balance 1480 ml Laboratory Data 24H LABS Laboratory Tests 2 05/02/18 17:10: Bedside Glucose (Misc Panel) 81 05/02/18 20:00: Bedside Glucose (Misc Panel) 254H 05/03/18 05:34: Bedside Glucose (Misc Panel) 147H 05/03/18 12:05: Bedside Glucose (Misc Panel) 256H Microbiology Microbiology 04/30/18 Urine Culture - Final, Complete Lactobacillus Species Yeast Like Organism Elicia Patino May 03, 2018 13:49
[2018-05-03 14:00] VITALS: BP 139/79
--- NOTE | 2018-05-03 14:50 | NUR ---
Training in use of mnemonic device to aid in recall of personally relevant info. Mod cues needed after initial training. Mod cues needed for use of visualization strategy for delayed recall of simple objects. Min-mod cues for appropriate sequencing of functional tasks - difficulty with cognitive linguistic organization which improved with cues. Addendum: 05/03/18 at 1454 by MERCY KAPLAN SP Amended: Links added.
--- NOTE | 2018-05-03 15:31 | IPNPDOC ---
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 Later she was seen in her room on the floor saying she tried to get out of bed on the right She denies head trauma or pain. REVIEW OF SYSTEMS: The following is a completed review of systems and has been reviewed. Review of systems otherwise unremarkable. PAIN: Patient self reports no pain. EYES: +right visual field cut EARS, NOSE, & THROAT: +dysphagia, no rhinorrhea or hearing loss CARDIOVASCULAR: denies palpitations or chest pain PULMONARY: Negative. Denies shortness of breath GASTROINTESTINAL: Negative for diarrhea or constipation GENITOURINARY: +incontinence (improving), denies dysuria. MUSCULOSKELETAL: RLE weakness NEUROLOGICAL: +stroke with RLE paresis HEMATOLOGICAL: Negative SKIN: loop recorder incision PSYCHIATRIC: Unremarkable. All other review of systems found to be negative. PHYSICAL EXAMINATION: VITAL SIGNS: Please see below. GENERAL: Pleasant and cooperative. No acute distress. HEENT: PERRL. Extraocular movements intact. Clear conjunctiva, poor dentition, visual field cut on the right CARDIOVASCULAR: Regular rate and rhythm. No murmurs, rubs, or gallops LUNGS: Clear to auscultation bilaterally. No wheezes. No rhonchi ABDOMEN: Soft, nontender, nondistended. Positive bowel sounds. Normal active bowel sounds NEUROLOGICAL: Alert and oriented times three. Cranial nerves II through XII grossly intact. EXTREMITIES: 5\5 strength bilateral upper extremities. 3/5 right hip flexors, knee extensors, ankle DF and EHL 5/5 strength in left lower extremity. +Babinski on the right +decreased sensation in right LE to light touch negative dysmetria SKIN: chest wall incision with sutures healing well ASSESSMENT:52-year-old F with past medical history of CVA, CAD, diastolic CHF, DM who presents status post new stroke with RLE weakness and dysphagia PLAN: 1. 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 Resp: encourage incentive spirometry, monitor for aspiration 4. Cardio: pmh HTN with diastolic and systolic CHF, continue BP meds and adjust as needed-medicine consulted 5. Endo: pmh DM, continue insulin therapy, will hold metformin-well controlled 6. DVT ppx: Lovenox 7. GI ppx: Pepcid 8. :admisison UA suspicious for UTI, Ucx positive for yeast, s/p Diflucan, denies dysuria, monitor PVRs 9. DIspo: [id number] with Dr. Warren PMD [phone], progressing towards goals Allergies Coded Allergies: No Known Allergies (Unverified , 04/26/18) Vital Signs Vital Signs Date Time Temp Pulse Resp B/P (MAP) Pulse Ox O2 Delivery O2 Flow Rate FiO2 05/03/18 14:00 98.3 72 18 139/79 (99) 98 Laboratory Data Labs 24H Laboratory Tests 2 05/02/18 17:10: Bedside Glucose (Misc Panel) 81 05/02/18 20:00: Bedside Glucose (Misc Panel) 254H 05/03/18 05:34: Bedside Glucose (Misc Panel) 147H 05/03/18 12:05: Bedside Glucose (Misc Panel) 256H Microbiology Microbiology 04/30/18 Urine Culture - Final, Complete Lactobacillus Species Yeast Like Organism Current Medications Current Medications Current Medications Acetaminophen (Tylenol Tab) 650 mg Q4HP PRN PO fever/MILD PAIN (PS 1-4); Start 04/26/18 at 17:45 Amlodipine Besylate (Norvasc) 10 mg DAILY PO Last administered on 05/03/18at 10:40; Start 04/27/18 at 09:00 Aspirin (Aspirin Chewable) 81 mg DAILY PO Last administered on 05/03/18at 10:40; Start 04/27/18 at 09:00 Atorvastatin Calcium (Lipitor) 80 mg QHS PO Last administered on 05/02/18at 20:54; Start 04/26/18 at 21:00 Bisacodyl (Dulcolax Suppository) 10 mg DAILYPRN PRN [place] CONSTIPATION; Start 04/26/18 at 17:45 Clopidogrel Bisulfate (PLAVix) 75 mg DAILY PO Last administered on 05/03/18at 10:40; Start 04/27/18 at 09:00 Dextrose (Dextrose 50%) 25 ml ASDIRECTED PRN IV SEE LABEL COMMENTS; Start 04/26/18 at 17:45 Dextrose (Dextrose 50%) 25 ml ASDIRECTED PRN IV SEE LABEL COMMENTS; Start 04/27/18 at 12:00; Stop 04/27/18 at 12:00; Status DC Docusate Sodium (Colace) 100 mg BID PO Last administered on 05/03/18at 10:39; Start 04/26/18 at 21:00 Fluoxetine HCl (PROzac) 20 mg DAILY PO Last administered on 05/03/18at 10:39; Start 04/27/18 at 09:00 Gabapentin (Neurontin) 100 mg BID PO Last administered on 04/27/18at 08:47; Start 04/26/18 at 21:00; Stop 04/27/18 at 13:07; Status DC Glucagon (Glucagon) 1 mg ASDIRECTED PRN SC SEE LABEL COMMENTS; Start 04/26/18 at 17:45 Glucagon (Glucagon) 1 mg ASDIRECTED PRN SC SEE LABEL COMMENTS; Start 04/27/18 at 12:00; Status UNV Glucose (Glucose) 16 GM ASDIRECTED PRN PO SEE LABEL COMMENTS; Start 04/26/18 at 17:45 Glucose (Glucose) 16 GM ASDIRECTED PRN PO SEE LABEL COMMENTS; Start 04/27/18 at 12:00; Stop 04/27/18 at 12:00; Status DC Home Med (Med Rec Complete!) ASDIRECTED XX ; Start 04/26/18 at 18:45; Stop 04/26/18 at 18:48; Status DC Insulin Detemir (Levemir Insulin) 10 units QHS SC Last administered on 05/01/18at 20:40; Start 04/26/18 at 21:00; Stop 05/02/18 at 13:27; Status DC Insulin Human Isoph/Insulin Regular (HumuLIN 70/30 INSULIN) 10 units BID@0730,1730 SC Last administered on 05/02/18at 10:30; Start 04/27/18 at 07:30; Stop 05/02/18 at 13:27; Status DC Insulin Human Isoph/Insulin Regular (HumuLIN 70/30 INSULIN) 14 units BID@0730,1730 SC Last administered on 05/03/18at 10:45; Start 05/02/18 at 17:30 Insulin Human Lispro (HumaLOG INSULIN) 2 units AC SC Last administered on 05/02/18at 12:37; Start 04/29/18 at 12:00; Stop 05/02/18 at 13:27; Status DC Insulin Human Lispro (HumaLOG INSULIN) SEE PROTOCOL TABLE AC SC Last administered on 05/03/18at 13:10; Start 04/27/18 at 12:00 Insulin Human Lispro (HumaLOG INSULIN) SEE PROTOCOL TABLE QHS SC Last administered on 05/02/18at 20:55; Start 04/27/18 at 21:00 Isosorbide Mononitrate (Imdur) 60 mg DAILY PO Last administered on 05/03/18at 10:44; Start 04/27/18 at 09:00 Levothyroxine Sodium (Synthroid) 25 mcg DAILY@06 PO Last administered on 05/03/18at 05:38; Start 04/27/18 at 06:00 Lisinopril (Prinivil) 40 mg DAILY@1000 PO Last administered on 05/03/18at 10:39; Start 04/27/18 at 10:00 Magnesium Hydroxide (Milk Of Magnesia) 30 ml DAILYPRN PRN PO CONSTIPATION; Start 04/26/18 at 17:45 Metoprolol Succinate (TopROL XL) 75 mg DAILY PO Last administered on 04/27/18at 08:48; Start 04/27/18 at 09:00; Stop 04/27/18 at 12:41; Status DC Metoprolol Succinate (TopROL XL) 100 mg DAILY PO Last administered on 05/03/18at 10:39; Start 04/28/18 at 09:00 Ondansetron HCl (Zofran) 4 mg Q6HP PRN PO NAUSEA; Start 04/26/18 at 17:45 Pantoprazole Sodium (Protonix) 40 mg DAILY PO Last administered on 05/03/18at 10:40; Start 04/27/18 at 09:00 Senna (Senokot) 1 tab QHS PO Last administered on 05/02/18at 20:54; Start 04/26/18 at 21:00 VINCENT MERLOS MD May 03, 2018 15:31
[2018-05-03 20:00] VITALS: BP 134/66
[2018-05-03] MEDS: SENNA 8.6 MG TAB (SENOKOT) PO SCH (21:00)
[2018-05-03] MEDS: ATORVASTATIN 20 MG TAB PO SCH (21:12)
[2018-05-04] MEDS: LEVOTHYROXINE 25MCG TABLET (0.025MG) PO SCH (05:57)
[2018-05-04 06:00] VITALS: BP 137/75
[2018-05-04 06:53] LABS: BASO # 0.1 10^3/uL (0.0-0.2); BASO % 0.7 % (0.0-1.0); EOS # 0.4 10^3/uL (0.0-0.50); EOS % 4.9 % (0.0-3.0); HEMATOCRIT 36.6 % (36.0-47.0); HEMOGLOBIN 11.7 g/dl (12.0-15.5); LYMPH # 2.7 10^3/uL (1.5-4.5); LYMPH % 31.7 % (24.0-44.0); MEAN CORPUSCULAR HEMOGLOBIN 29.5 pg (27.0-33.0); MEAN CORPUSCULAR VOLUME 92.4 fl (80.0-96.0); MONO # 0.7 10^3/uL (0.0-0.8); MONO % 8.1 % (0.0-5.0); NEUTROPHILS # 4.6 10^3/uL (1.8-7.7); NEUTROPHILS % 54.2 % (36.0-66.0); PLATELET COUNT, AUTOMATED 280 10^3/uL (150-450); RED BLOOD COUNT 3.96 10^6/uL (4.00-5.40); WHITE BLOOD COUNT 8.4 10^3/uL (4.0-10.0)
[2018-05-04 07:13] LABS: BLOOD UREA NITROGEN 16 MG/DL (7-18); CALCIUM LEVEL 8.6 MG/DL (8.5-10.1); CARBON DIOXIDE LEVEL 27 MEQ/L (21-32); CHLORIDE LEVEL 106 MEQ/L (98-107); CREATININE FOR GFR 0.89 MG/DL (0.55-1.30); GLOMERULAR FILTRATION RATE > 60.0 (>51); GLUCOSE, FASTING 107 MG/DL (70-100); POTASSIUM SERUM 3.6 MEQ/L (3.5-5.1); SODIUM LEVEL 139 MEQ/L (136-145)
[2018-05-04] MEDS: HumuLIN (NovoLIN)70/30 INSULIN INJ PER UNIT SC SCH ×2 (07:30→17:27)
[2018-05-04] MEDS: ASPIRIN 81 MG CHEW TABLET PO SCH (08:54)
[2018-05-04] MEDS: CLOPIDOGREL 75 MG TAB PO SCH (08:54)
[2018-05-04] MEDS: HumaLOG INSULIN (NovoLOG) PER UNIT SC SCH ×4 (08:54→20:41)
[2018-05-04] MEDS: DOCUSATE SODIUM 100 MG CAP PO SCH ×2 (08:54→20:41)
[2018-05-04] MEDS: LISINOPRIL 40 MG TAB PO SCH (08:55)
[2018-05-04] MEDS: PANTOPRAZOLE 40MG TAB (PROTONIX) PO SCH (08:55)
[2018-05-04] MEDS: ISOSORBIDE MON. (IMDUR) 60 MG XR TAB PO SCH (08:55)
[2018-05-04] MEDS: FLUoxetine 20 MG CAP PO SCH (08:55)
[2018-05-04] MEDS: METOPROLOL SUCC (TopROL XL) 50MG **XL** TAB PO SCH (08:55)
[2018-05-04] MEDS: amLODIPine 10 MG TAB PO SCH (09:00)
--- NOTE | 2018-05-04 11:48 | NUR ---
Training in mneumonics, visualization, and use of similarities to recall personally relevant and irrelevant information. Mod cues for delayed recall and use of strategies. Education provided regarding incorporation of additional strategies (extra time, use of visual supports, visual recognition) to facilitate improved recall. Edu for pt's shabbiriend to facilitate support in recall of personally relevant info. Addendum: 05/04/18 at 1151 by MERCY MERRILL SSAlis SP Amended: Links added.
[2018-05-04 14:00] VITALS: BP 123/57
--- NOTE | 2018-05-04 14:48 | IPNPDOC ---
Text Note Date of Service The patient was seen on 05/04/18. NOTE Subjective: Patient is a 62-year-old female with a PMHx of CAD, HTN, DM2, DLP, Hx of CVA (2018), Hypothyroidism, Depression and GERD who presented to the ER with multiple mechanical falls over the 2 days prior to admission, and some memory changes as well as new right-sided weakness and difficulty swallowing. CT of the head showed no acute infarct or intracranial hemorrhage, old left occipital infarct was noted. She was admitted to [facility] with neurology consultation. An MRI during admission showed a left TYS[place] ischemic stroke, making this a second stroke within a year. Per neurology recommendation, the pt was continued on aspirin, Plavix and statin. Given that this is the second stroke there was concern for cardioembolic source during admission. Patient underwent TTE that demonstrated mildly dilated left ventricle with ejection fraction of 40-45%. There was global hypokinesis without evidence of apical thrombus. Patient had aortic sclerosis, mildly dilated aortic root, no thrombus was detected. Negative bubble study. Inspection And Testing Supervisor recommended CHINTAN to look at the atrial appendage, as well as a loop recorder implanted at discharge to monitor for atrial fibrillation. CHINTAN was later considered to be too risky given concern for aspiration, but a Loop recorder was placed by Dr. Lazcano to monitor for Afib. The pt was transferred to the care of Dr Teixeira, [facility], 04/27/18. Patient was seen and examined at the bedside. Currently patient has no new complaints. He denies any chest pain, shortness of breath or palpitations. Still expresses right upper extremity weakness. Denies any nausea, vomiting, abdominal pain, constipation, or discomfort with urination. Objective: Vitals (See below) General: Lying in bed, no acute distress, comfortable, AAOx3 HEENT: NC, AT CVS: RRR, +S1S2 Lungs: Fair air entry b/l, -w/r/r Abdomen: Soft, ND, NT Extremities: - Edema, - Calf tenderness Neuro: Evidence of right upper extremity weakness, some residual right lower extremity weakness Assessment and plan: Right sided weakness / Dysphagia - likely 2/2 acute cerebrovascular infarct - Physical reveals right upper extremity weakness with very mild right lower extremity weakness - Patient has indicated that her right upper extremity has been weak since arrival - PT / OT, pain control, bowel regimen and anticoagulation as per ARU - c/w ASA, Plavix and Atorvastatin HTN - c/w Lisinopril, Amlodipine, Metoprolol, Isosorbide mononitrate CAD - c/w ASA, Metoprolol, Atorvastatin DLP - c/w Atorvastatin DM2 - c/w ISS Hypothyroidism - c/w Levothyroxine Depression - c/w Fluoxetine GERD - c/w Protonix DVT prophylaxis - Will start SCDs / TEDs; currently not on Lovenox VS,Fishbone, I+O VS, Fishbone, I+O Laboratory Tests 05/04/18 06:10 Red Blood Count 3.96 L, Mean Corpuscular Volume 92.4, Mean Corpuscular Hemoglobin 29.5, Mean Corpuscular Hemoglobin Concent 32.0, Red Cell Distribution Width 13.0, Neutrophils (%) (Auto) 54.2, Lymphocytes (%) (Auto) 31.7, Monocytes (%) (Auto) 8.1 H, Eosinophils (%) (Auto) 4.9 H, Basophils (%) (Auto) 0.7, Neutrophils # (Auto) 4.6, Lymphocytes # (Auto) 2.7, Monocytes # (Auto) 0.7, Eosinophils # (Auto) 0.4, Basophils # (Auto) 0.1, Calcium Level 8.6 Vital Signs Date Time Temp Pulse Resp B/P (MAP) Pulse Ox O2 Delivery O2 Flow Rate FiO2 05/04/18 14:00 97.4 58 18 123/57 (79 97 I&O- Last 24 Hours up to 6 AM 05/04/18 06:00 Intake Total 870 ml Output Total 0 ml Balance 870 ml RORO LEMUS MD May 04, 2018 14:48
[2018-05-04 20:00] VITALS: BP 138/65
[2018-05-04] MEDS: ATORVASTATIN 20 MG TAB PO SCH (20:41)
[2018-05-04] MEDS: SENNA 8.6 MG TAB (SENOKOT) PO SCH (20:41)
[2018-05-05 06:00] VITALS: BP_SYST 158; BP_DIAS 70; BP_DIAS 76
[2018-05-05] MEDS: LEVOTHYROXINE 25MCG TABLET (0.025MG) PO SCH (06:03)
[2018-05-05] MEDS: ASPIRIN 81 MG CHEW TABLET PO SCH (09:13)
[2018-05-05] MEDS: HumaLOG INSULIN (NovoLOG) PER UNIT SC SCH ×4 (09:13→21:00)
[2018-05-05] MEDS: CLOPIDOGREL 75 MG TAB PO SCH (09:13)
[2018-05-05] MEDS: FLUoxetine 20 MG CAP PO SCH (09:13)
[2018-05-05] MEDS: PANTOPRAZOLE 40MG TAB (PROTONIX) PO SCH (09:13)
[2018-05-05] MEDS: HumuLIN (NovoLIN)70/30 INSULIN INJ PER UNIT SC SCH ×2 (09:13→17:27)
[2018-05-05] MEDS: amLODIPine 10 MG TAB PO SCH (09:14)
[2018-05-05] MEDS: DOCUSATE SODIUM 100 MG CAP PO SCH ×2 (09:14→21:00)
[2018-05-05] MEDS: ISOSORBIDE MON. (IMDUR) 60 MG XR TAB PO SCH (09:14)
[2018-05-05] MEDS: METOPROLOL SUCC (TopROL XL) 50MG **XL** TAB PO SCH (09:14)
[2018-05-05] MEDS: LISINOPRIL 40 MG TAB PO SCH (09:14)
[2018-05-05 14:00] VITALS: BP 130/67
--- NOTE | 2018-05-05 15:59 | IPNPDOC ---
Text Note Date of Service The patient was seen on 05/05/18. NOTE Subjective: Patient is a 62-year-old female with a PMHx of CAD, HTN, DM2, DLP, Hx of CVA (2018), Hypothyroidism, Depression and GERD who presented to the ER with multiple mechanical falls over the 2 days prior to admission, and some memory changes as well as new right-sided weakness and difficulty swallowing. CT of the head showed no acute infarct or intracranial hemorrhage, old left occipital infarct was noted. She was admitted to [facility] with neurology consultation. An MRI during admission showed a left [place] ischemic stroke, making this a second stroke within a year. Per neurology recommendation, the pt was continued on aspirin, Plavix and statin. Given that this is the second stroke there was concern for cardioembolic source during admission. Patient underwent TTE that demonstrated mildly dilated left ventricle with ejection fraction of 40-45%. There was global hypokinesis without evidence of apical thrombus. Patient had aortic sclerosis, mildly dilated aortic root, no thrombus was detected. Negative bubble study. Administrative Assistant recommended CHINTAN to look at the atrial appendage, as well as a loop recorder implanted at discharge to monitor for atrial fibrillation. CHINTAN was later considered to be too risky given concern for aspiration, but a Loop recorder was placed by Dr. Lazcano to monitor for Afib. The pt was transferred to the care of Dr Teixeira, [facility], 04/27/18. Patient was seen and examined at the bedside. Patient has no new complaints this morning has been working with physical therapy has not experienced any nausea or vomiting. Denies abdominal pain, constipation, diarrhea or discomfort with urination. She has not expense, chest pain, short of breath or palpitations. Objective: Vitals (See below) General: Lying in bed, no acute distress, comfortable, AAOx3 HEENT: NC, AT CVS: RRR, +S1S2 Lungs: Fair air entry b/l, auscultation is without any wheezing, rales or rhonchi Abdomen: Soft, nondistended, tenderness Extremities: No evidence of lower extremity edema, - Calf tenderness Neuro: Evidence of right upper and right lower extremity weakness Assessment and plan: Right sided weakness / Dysphagia - likely 2/2 acute cerebrovascular infarct - Physical reveals right upper extremity weakness with very mild right lower extremity weakness - Patient has indicated that her right upper extremity has been weak since arriv al - c/w ASA, Plavix and Atorvastatin - PT / OT, pain control, bowel regimen and anticoagulation as per ARU - no change in plan HTN - c/w Lisinopril, Amlodipine, Metoprolol, Isosorbide mononitrate CAD - c/w ASA, Metoprolol, Atorvastatin DLP - c/w Atorvastatin DM2 - c/w ISS Hypothyroidism - c/w Levothyroxine Depression - c/w Fluoxetine GERD - c/w Protonix DVT prophylaxis - c/w SCDs / TEDs; currently not on Lovenox VS,Fishbone, I+O VS, Fishbone, I+O Vital Signs Date Time Temp Pulse Resp B/P (MAP) Pulse Ox O2 Delivery O2 Flow Rate FiO2 05/05/18 14:00 97.3 62 18 130/67 (88) 96 I&O- Last 24 Hours up to 6 AM 05/05/18 06:00 Intake Total 990 ml Output Total 0 ml Balance 990 ml RORO LEMUS MD May 05, 2018 15:59
[2018-05-05 20:00] VITALS: BP 137/63
[2018-05-05] MEDS: SENNA 8.6 MG TAB (SENOKOT) PO SCH (21:00)
[2018-05-05] MEDS: ATORVASTATIN 20 MG TAB PO SCH (21:53)
[2018-05-06] MEDS: LEVOTHYROXINE 25MCG TABLET (0.025MG) PO SCH (05:22)
[2018-05-06 06:00] VITALS: BP 155/67
[2018-05-06] MEDS: HumaLOG INSULIN (NovoLOG) PER UNIT SC SCH ×4 (07:30→21:00)
[2018-05-06] MEDS: HumuLIN (NovoLIN)70/30 INSULIN INJ PER UNIT SC SCH ×2 (07:30→17:46)
[2018-05-06] MEDS: CLOPIDOGREL 75 MG TAB PO SCH (09:56)
[2018-05-06] MEDS: FLUoxetine 20 MG CAP PO SCH (09:56)
[2018-05-06] MEDS: ASPIRIN 81 MG CHEW TABLET PO SCH (09:57)
[2018-05-06] MEDS: PANTOPRAZOLE 40MG TAB (PROTONIX) PO SCH (09:57)
[2018-05-06] MEDS: DOCUSATE SODIUM 100 MG CAP PO SCH ×2 (09:57→21:00)
[2018-05-06] MEDS: amLODIPine 10 MG TAB PO SCH (10:00)
[2018-05-06] MEDS: METOPROLOL SUCC (TopROL XL) 50MG **XL** TAB PO SCH (10:00)
[2018-05-06] MEDS: LISINOPRIL 40 MG TAB PO SCH (10:01)
[2018-05-06] MEDS: ISOSORBIDE MON. (IMDUR) 60 MG XR TAB PO SCH (10:01)
--- NOTE | 2018-05-06 11:46 | IPNPDOC ---
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 She feels she is getting stronger. REVIEW OF SYSTEMS: The following is a completed review of systems and has been reviewed. Review of systems otherwise unremarkable. PAIN: Patient self reports no pain. EYES: +right visual field cut EARS, NOSE, & THROAT: +dysphagia, no rhinorrhea or hearing loss CARDIOVASCULAR: denies palpitations or chest pain PULMONARY: Negative. Denies shortness of breath GASTROINTESTINAL: Negative for diarrhea or constipation GENITOURINARY: +incontinence (improving), denies dysuria. MUSCULOSKELETAL: RLE weakness NEUROLOGICAL: +stroke with RLE paresis HEMATOLOGICAL: Negative SKIN: loop recorder incision PSYCHIATRIC: Unremarkable. All other review of systems found to be negative. PHYSICAL EXAMINATION: VITAL SIGNS: Please see below. GENERAL: Pleasant and cooperative. No acute distress. HEENT: PERRL. Extraocular movements intact. Clear conjunctiva, poor dentition, visual field cut on the right CARDIOVASCULAR: Regular rate and rhythm. No murmurs, rubs, or gallops LUNGS: Clear to auscultation bilaterally. No wheezes. No rhonchi ABDOMEN: Soft, nontender, nondistended. Positive bowel sounds. Normal active bowel sounds NEUROLOGICAL: Alert and oriented times three. Cranial nerves II through XII grossly intact. EXTREMITIES: 5\5 strength bilateral upper extremities. 3/5 right hip flexors, knee extensors, ankle DF and EHL 5/5 strength in left lower extremity. +Babinski on the right +decreased sensation in right LE to light touch negative dysmetria SKIN: chest wall incision with sutures healing well ASSESSMENT:52-year-old F with past medical history of CVA, CAD, diastolic CHF, DM who presents status post new stroke with RLE weakness and dysphagia PLAN: 1. 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 Resp: encourage incentive spirometry, monitor for aspiration 4. Cardio: pmh HTN with diastolic and systolic CHF, continue BP meds and adjust as needed-medicine consulted 5. Endo: pmh DM, continue insulin therapy, will hold metformin-well controlled 6. DVT ppx: Lovenox 7. GI ppx: Pepcid 8. :admisison UA suspicious for UTI, Ucx positive for yeast, s/p Diflucan, denies dysuria, monitor PVRs 9. DIspo: [id number] with Dr. Warren PMD [phone], progressing towards goals Allergies Coded Allergies: No Known Allergies (Unverified , 04/26/18) Vital Signs Vital Signs Date Time Temp Pulse Resp B/P (MAP) Pulse Ox O2 Delivery O2 Flow Rate FiO2 05/06/18 10:01 146/69 05/06/18 10:00 68 05/06/18 06:00 98.2 18 98 Laboratory Data Labs 24H Laboratory Tests 2 05/05/18 11:51: Bedside Glucose (Misc Panel) 205H 05/05/18 16:10: Bedside Glucose (Misc Panel) 101 05/05/18 20:04: Bedside Glucose (Misc Panel) 177H 05/06/18 05:06: Bedside Glucose (Misc Panel) 87 05/06/18 11:15: Bedside Glucose (Misc Panel) 311H Microbiology Microbiology 04/30/18 Urine Culture - Final, Complete Lactobacillus Species Yeast Like Organism Current Medications Current Medications Current Medications Acetaminophen (Tylenol Tab) 650 mg Q4HP PRN PO fever/MILD PAIN (PS 1-4); Start 04/26/18 at 17:45 Amlodipine Besylate (Norvasc) 10 mg DAILY PO Last administered on 05/06/18at 10:00; Start 04/27/18 at 09:00 Aspirin (Aspirin Chewable) 81 mg DAILY PO Last administered on 05/06/18at 09:57; Start 04/27/18 at 09:00 Atorvastatin Calcium (Lipitor) 80 mg QHS PO Last administered on 05/05/18at 21:53; Start 04/26/18 at 21:00 Bisacodyl (Dulcolax Suppository) 10 mg DAILYPRN PRN [place] CONSTIPATION; Start 04/26/18 at 17:45 Clopidogrel Bisulfate (PLAVix) 75 mg DAILY PO Last administered on 05/06/18at 09:56; Start 04/27/18 at 09:00 Dextrose (Dextrose 50%) 25 ml ASDIRECTED PRN IV SEE LABEL COMMENTS; Start 04/26/18 at 17:45 Dextrose (Dextrose 50%) 25 ml ASDIRECTED PRN IV SEE LABEL COMMENTS; Start 04/27/18 at 12:00; Stop 04/27/18 at 12:00; Status DC Docusate Sodium (Colace) 100 mg BID PO Last administered on 05/06/18at 09:57; Start 04/26/18 at 21:00 Fluoxetine HCl (PROzac) 20 mg DAILY PO Last administered on 05/06/18at 09:56; Start 04/27/18 at 09:00 Gabapentin (Neurontin) 100 mg BID PO Last administered on 04/27/18at 08:47; Start 04/26/18 at 21:00; Stop 04/27/18 at 13:07; Status DC Glucagon (Glucagon) 1 mg ASDIRECTED PRN SC SEE LABEL COMMENTS; Start 04/26/18 at 17:45 Glucagon (Glucagon) 1 mg ASDIRECTED PRN SC SEE LABEL COMMENTS; Start 04/27/18 at 12:00; Status UNV Glucose (Glucose) 16 GM ASDIRECTED PRN PO SEE LABEL COMMENTS; Start 04/26/18 at 17:45 Glucose (Glucose) 16 GM ASDIRECTED PRN PO SEE LABEL COMMENTS; Start 04/27/18 at 12:00; Stop 04/27/18 at 12:00; Status DC Home Med (Med Rec Complete!) ASDIRECTED XX ; Start 04/26/18 at 18:45; Stop 04/26/18 at 18:48; Status DC Insulin Detemir (Levemir Insulin) 10 units QHS SC Last administered on 05/01/18at 20:40; Start 04/26/18 at 21:00; Stop 05/02/18 at 13:27; Status DC Insulin Human Isoph/Insulin Regular (HumuLIN 70/30 INSULIN) 10 units BID@0730,1730 SC Last administered on 05/02/18at 10:30; Start 04/27/18 at 07:30; Stop 05/02/18 at 13:27; Status DC Insulin Human Isoph/Insulin Regular (HumuLIN 70/30 INSULIN) 14 units BID@0730,1730 SC Last administered on 05/05/18at 17:27; Start 05/02/18 at 17:30 Insulin Human Lispro (HumaLOG INSULIN) 2 units AC SC Last administered on 05/02/18at 12:37; Start 04/29/18 at 12:00; Stop 05/02/18 at 13:27; Status DC Insulin Human Lispro (HumaLOG INSULIN) SEE PROTOCOL TABLE AC SC Last administered on 05/05/18at 12:47; Start 04/27/18 at 12:00 Insulin Human Lispro (HumaLOG INSULIN) SEE PROTOCOL TABLE QHS SC Last administered on 05/02/18at 20:55; Start 04/27/18 at 21:00 Isosorbide Mononitrate (Imdur) 60 mg DAILY PO Last administered on 05/06/18at 10:01; Start 04/27/18 at 09:00 Levothyroxine Sodium (Synthroid) 25 mcg DAILY@06 PO Last administered on 05/06/18at 05:22; Start 04/27/18 at 06:00 Lisinopril (Prinivil) 40 mg DAILY@1000 PO Last administered on 05/06/18at 10:01; Start 04/27/18 at 10:00 Magnesium Hydroxide (Milk Of Magnesia) 30 ml DAILYPRN PRN PO CONSTIPATION; Start 04/26/18 at 17:45 Metoprolol Succinate (TopROL XL) 75 mg DAILY PO Last administered on 04/27/18at 08:48; Start 04/27/18 at 09:00; Stop 04/27/18 at 12:41; Status DC Metoprolol Succinate (TopROL XL) 100 mg DAILY PO Last administered on 05/06/18at 10:00; Start 2/10/19 at 09:00 Ondansetron HCl (Zofran) 4 mg Q6HP PRN PO NAUSEA; Start 04/26/18 at 17:45 Pantoprazole Sodium (Protonix) 40 mg DAILY PO Last administered on 05/06/18at 09:57; Start 04/27/18 at 09:00 Senna (Senokot) 1 tab QHS PO Last administered on 05/04/18at 20:41; Start 04/26/18 at 21:00 VINCENT MERLOS MD May 06, 2018 11:46
[2018-05-06 14:00] VITALS: BP 119/57
[2018-05-06 20:00] VITALS: BP 142/67
[2018-05-06] MEDS: SENNA 8.6 MG TAB (SENOKOT) PO SCH (21:22)
[2018-05-06] MEDS: ATORVASTATIN 20 MG TAB PO SCH (21:23)
[2018-05-07] MEDS: LEVOTHYROXINE 25MCG TABLET (0.025MG) PO SCH (05:56)
[2018-05-07 06:00] VITALS: BP 158/80
[2018-05-07] MEDS: HumuLIN (NovoLIN)70/30 INSULIN INJ PER UNIT SC SCH ×2 (08:18→17:16)
[2018-05-07] MEDS: HumaLOG INSULIN (NovoLOG) PER UNIT SC SCH ×4 (08:19→21:00)
[2018-05-07] MEDS: PANTOPRAZOLE 40MG TAB (PROTONIX) PO SCH (08:20)
[2018-05-07] MEDS: LISINOPRIL 40 MG TAB PO SCH (08:20)
[2018-05-07] MEDS: DOCUSATE SODIUM 100 MG CAP PO SCH ×3 (08:20→21:00)
[2018-05-07] MEDS: CLOPIDOGREL 75 MG TAB PO SCH (08:20)
[2018-05-07] MEDS: FLUoxetine 20 MG CAP PO SCH (08:21)
[2018-05-07] MEDS: ISOSORBIDE MON. (IMDUR) 60 MG XR TAB PO SCH (08:21)
[2018-05-07] MEDS: ASPIRIN 81 MG CHEW TABLET PO SCH (08:21)
[2018-05-07] MEDS: METOPROLOL SUCC (TopROL XL) 50MG **XL** TAB PO SCH ×2 (08:22→08:25)
[2018-05-07] MEDS: amLODIPine 10 MG TAB PO SCH (08:23)
--- NOTE | 2018-05-07 12:49 | IPNPDOC ---
Date Seen The patient was seen on 05/07/18. Progress Note HPI: Patient is a 51-year-old female who presented to the ED with multiple mechanical falls over the 2 days prior to admission, and some memory changes as well as new right-sided weakness and difficulty swallowing. CT of the head showed no acute infarct or intracranial hemorrhage,old left occipital infarct was noted. She was admitted to [facility] with neurology consultation. An MRI during admission showed a left [place] ischemic stroke, making this a second stroke within a year. Per neurology recommendation, the pt was continued on aspirin, Plavix and statin. Given that this is the second stroke there was concern for cardioembolic source during admission. Patient underwent TTE that demonstrated mildly dilated left ventricle with ejection fraction of 40-45%. There was global hypokinesis without evidence of apical thrombus. Patient had aortic sclerosis, mildly dilated aortic root, no thrombus was detected. Negative bubble study. Motion Picture Commentator recommended CHINTAN to look at the atrial appendage, as well as a loop recorder implanted at discharge to monitor for atrial fibrillation. CHINTAN was later considered to be too risky given concern for aspiration, but a Loop nick rder was placed by Dr. Lazcano to monitor for Afib. The pt was transferred to the care of Dr Teixeira, [facility], 04/27/18. The pt is n oted to have residual RLE weakness and dysphagia. Patient is currently sitting up in bed for lunch. She states she feels like she is gaining strength in the right lower extremity. Overall, feeling well with no concerns today. Nursing reports UC is pending, Pt denies any urinary symptoms. Denies any fevers, chills, weakness, fatigue, Headache, Chest Pain, Shortness of breath, cough, palpitations, abdominal pain, N/V/D or changes in bowel or bladder habits. PMHx: CAD DM HLD HTN hypothyroid H/O CVA 2017 PSHX: Cardiac catheterization in 05/21/2017: Normal coronaries Loop recorder PE: GEN: 52yoF, appears stated age. Well-nourished, well developed. No acute distress. Alert and oriented x 3. Pleasant, interactive. HEENT: Normocephalic, atraumatic. Sclera are nonicteric. Conjunctiva without injection. Nose midline. Nasal turbinates without bogginess. Moist mucous membranes. CHEST: Regular rate and rhythm, +S1, +S2 LUNGS: Clear to auscultation bilaterally. No wheezes, rales, or rhonchi. ABD: Round, soft, non-tender, non-distended. +Bowel sounds throughout. No rebound or guarding. EXT: No lower extremity edema appreciated. SKIN: [place], dry, warm. No rashes. NEURO: Alert and oriented x 3. UC pending A&P: Patient is a 51-year-old female who presented to the ED with multiple mechanical falls over the 2 days prior to admission, and some memory changes as well as new right-sided weakness and difficulty swallowing. CT of the head showed no acute infarct or intracranial hemorrhage,old left occipital infarct was noted. She was admitted to [facility] with neurology consultation. An MRI during admission showed a left [place] ischemic stroke, making this a second stroke within a year. Per neurology recommendation, the pt was continued on aspirin, Plavix and statin. Given that this is the second stroke there was concern for cardioembolic source during admission. Patient underwent TTE that demonstrated mildly dilated left ventricle with ejection fraction of 40-45%. There was global hypokinesis without evidence of apical thrombus. Patient had aortic sclerosis, mildly dilated aortic root, no thrombus was detected. Negative bubble study. Motion Picture Commentator recommended CHINTAN to look at the atrial appendage, as well as a loop recorder implanted at discharge to monitor for atrial fibrillation. CHINTAN was later considered to be too risky given concern for aspiration, but a Loop recorder was placed by Dr. Lazcano to monitor for Afib. The pt was transferred to the care of Dr Teixeira, [facility], 04/27/18. 1. S/P CVA with residual RLE weakness and dysphagia. Mgmt as per ARU. PT/OT as per ARU. ST as per ARU. Pain control as per ARU. Bowel care as per ARU. DVT prophylaxis as per ARU. Outpt F/U with Neurology. Continue ASA81 mg daily, Plavix 75 mg daily, Lipitor 80 mg daily. 2. Hypertension Lisinopril 40 mg daily, Norvasc 10 mg daily, isosorbide mononitrate 60 mg daily, metoprolol succinate 75 mg daily with hold parameters. 3. Diabetes. CC diet SSI Insulin adjusting as per Dr. Teixeira. 4. Coronary artery disease ASA/Toprol XL/Statin. 5. Hyperlipidemia Atorvastatin 80 mg 6. GERD. PPI. 7. hypothyroid. Continue supplement. 8. Depression. Prozac. VS, I&O, 24H, Fishbone Vital Signs/I&O Vital Signs Date Time Temp Pulse Resp B/P (MAP) Pulse Ox O2 Delivery O2 Flow Rate FiO2 05/07/18 08:25 60 158/80 05/07/18 06:00 97.1 18 97 I&O- Last 24 Hours up to 6 AM 05/07/18 06:00 Intake Total 880 ml Output Total 275 ml Balance 605 ml Laboratory Data 24H LABS Laboratory Tests 2 05/06/18 17:03: Bedside Glucose (Misc Panel) 158H 05/06/18 19:31: Bedside Glucose (Misc Panel) 252H 05/06/18 20:23: Bedside Glucose (Misc Panel) 246H 05/06/18 23:11: Urine Color YELLOW, Urine Appearance CLEAR, Urine pH 5.0, Urine Specific [place] 1.017, Urine Protein NEGATIVE, Urine Glucose (UA) NEGATIVE, Urine Ketones NEGA TIVE, Urine Blood NEGATIVE, Urine Nitrite NEGATIVE, Urine Bilirubin NEGATIVE, Urine Urobilinogen 0.2, Urine Leukocyte Esterase 1+H, Urine WBC (Auto) 13H, Urine RBC (Auto) 3, Urine Hyaline Casts (Auto) 0, Urine Bacteria (Auto) NEGATIVE, Urine Squamous Epithelial Cells 1, Urine Sperm (Auto) 05/07/18 06:07: Bedside Glucose (Misc Panel) 107H 05/07/18 11:28: Bedside Glucose (Misc Panel) 239H Microbiology Microbiology 05/06/18 Urine Culture, Received Pending 04/30/18 Urine Culture - Final, Complete Lactobacillus Species Yeast Like Organism Elicia Patino May 07, 2018 12:49
[2018-05-07 14:00] VITALS: BP 115/59
[2018-05-07 20:00] VITALS: BP 155/56
[2018-05-07] MEDS: SENNA 8.6 MG TAB (SENOKOT) PO SCH (22:00)
[2018-05-07] MEDS: ATORVASTATIN 20 MG TAB PO SCH (22:00)
[2018-05-08] MEDS: LEVOTHYROXINE 25MCG TABLET (0.025MG) PO SCH (05:34)
[2018-05-08 06:00] VITALS: BP 167/80
[2018-05-08] MEDS ORDERED: METOPROLOL SUCC *XL* 25MG TAB (TopROL *XL*) PO SCH (09:00)
[2018-05-08] MEDS: HumaLOG INSULIN (NovoLOG) PER UNIT SC SCH ×4 (09:28→21:00)
[2018-05-08] MEDS: CLOPIDOGREL 75 MG TAB PO SCH (09:29)
[2018-05-08] MEDS: DOCUSATE SODIUM 100 MG CAP PO SCH ×2 (09:29→21:22)
[2018-05-08] MEDS: HumuLIN (NovoLIN)70/30 INSULIN INJ PER UNIT SC SCH ×2 (09:29→17:59)
[2018-05-08] MEDS: ISOSORBIDE MON. (IMDUR) 60 MG XR TAB PO SCH (09:30)
[2018-05-08] MEDS: LISINOPRIL 40 MG TAB PO SCH (09:30)
[2018-05-08] MEDS: ASPIRIN 81 MG CHEW TABLET PO SCH (09:30)
[2018-05-08] MEDS: amLODIPine 10 MG TAB PO SCH (09:30)
[2018-05-08] MEDS: FLUoxetine 10 MG CAP PO SCH (09:31)
[2018-05-08] MEDS: PANTOPRAZOLE 40MG TAB (PROTONIX) PO SCH (09:31)
--- NOTE | 2018-05-08 10:57 | IPNPDOC ---
PM&R Progress Note DATE OF SERVICE: May 07, 2018 [facility] Progress Note Subjective: Patient seen in bed stating she felt well and is getting stronger. REVIEW OF SYSTEMS: The following is a completed review of systems and has been reviewed. Review of systems otherwise unremarkable. PAIN: Patient self reports no pain. EYES: +right visual field cut-improving EARS, NOSE, & THROAT: +dysphagia, no rhinorrhea or hearing loss CARDIOVASCULAR: denies palpitations or chest pain PULMONARY: Negative. Denies shortness of breath GASTROINTESTINAL: Negative for diarrhea or constipation GENITOURINARY: +incontinence (improving), denies dysuria. MUSCULOSKELETAL: RLE weakness NEUROLOGICAL: +stroke with RLE paresis HEMATOLOGICAL: Negative SKIN: loop recorder incision PSYCHIATRIC: Unremarkable. All other review of systems found to be negative. PHYSICAL EXAMINATION: VITAL SIGNS: Please see below. GENERAL: Pleasant and cooperative. No acute distress. HEENT: PERRL. Extraocular movements intact. Clear conjunctiva, poor dentition, visual field cut on the right CARDIOVASCULAR: Regular rate and rhythm. No murmurs, rubs, or gallops LUNGS: Clear to auscultation bilaterally. No wheezes. No rhonchi ABDOMEN: Soft, nontender, nondistended. Positive bowel sounds. Normal active bowel sounds NEUROLOGICAL: Alert and oriented times three. Cranial nerves II through XII grossly intact. EXTREMITIES: 5\5 strength bilateral upper extremities. 4/5 right hip flexors, knee extensors, ankle DF and EHL 5/5 strength in left lower extremity. +Babinski on the right +decreased sensation in right LE to light touch negative dysmetria SKIN: chest wall incision with sutures healing well ASSESSMENT:52-year-old F with past medical history of CVA, CAD, diastolic CHF, DM who presents status post new stroke with RLE weakness and dysphagia PLAN: 1. 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 Resp: encourage incentive spirometry, monitor for aspiration 4. Cardio: pmh HTN with diastolic and systolic CHF, continue BP meds and adjust as needed-medicine consulted 5. Endo: pmh DM, continue insulin therapy, will hold metformin-well controlled 6. DVT ppx: Lovenox 7. GI ppx: Pepcid 8. :admisison UA suspicious for UTI, Ucx positive for yeast, s/p Diflucan, denies dysuria, monitor PVRs 9. DIspo: [id number] with Dr. Warren PMD [phone], progressing towards goals Allergies Coded Allergies: No Known Allergies (Unverified , 04/26/18) Vital Signs Vital Signs Date Time Temp Pulse Resp B/P (MAP) Pulse Ox O2 Delivery O2 Flow Rate FiO2 05/08/18 09:30 164/73 05/08/18 09:30 86 05/08/18 06:00 96.7 19 99 Laboratory Data Labs 24H Laboratory Tests 2 05/07/18 11:28: Bedside Glucose (Misc Panel) 239H 05/07/18 16:56: Bedside Glucose (Misc Panel) 159H 05/07/18 20:11: Bedside Glucose (Misc Panel) 201H 05/08/18 06:01: Bedside Glucose (Misc Panel) 132H Microbiology Microbiology 05/06/18 Urine Culture, Received Pending 04/30/18 Urine Culture - Final, Complete Lactobacillus Species Yeast Like Organism Current Medications Current Medications Current Medications Acetaminophen (Tylenol Tab) 650 mg Q4HP PRN PO fever/MILD PAIN (PS 1-4); Start 04/26/18 at 17:45 Amlodipine Besylate (Norvasc) 10 mg DAILY PO Last administered on 05/08/18at 09:30; Start 04/27/18 at 09:00 Aspirin (Aspirin Chewable) 81 mg DAILY PO Last administered on 05/08/18at 09:30; Start 04/27/18 at 09:00 Atorvastatin Calcium (Lipitor) 80 mg QHS PO Last administered on 05/07/18at 22:00; Start 04/26/18 at 21:00 Bisacodyl (Dulcolax Suppository) 10 mg DAILYPRN PRN [place] CONSTIPATION; Start 04/26/18 at 17:45 Clopidogrel Bisulfate (PLAVix) 75 mg DAILY PO Last administered on 05/08/18at 09:29; Start 04/27/18 at 09:00 Dextrose (Dextrose 50%) 25 ml ASDIRECTED PRN IV SEE LABEL COMMENTS; Start 04/26/18 at 17:45 Dextrose (Dextrose 50%) 25 ml ASDIRECTED PRN IV SEE LABEL COMMENTS; Start 04/27/18 at 12:00; Stop 04/27/18 at 12:00; Status DC Docusate Sodium (Colace) 100 mg BID PO Last administered on 05/08/18at 09:29; Start 04/26/18 at 21:00 Fluoxetine HCl (PROzac) 20 mg DAILY PO Last administered on 05/07/18at 08:21; Start 04/27/18 at 09:00; Stop 05/07/18 at 10:11; Status DC Fluoxetine HCl (PROzac) 30 mg DAILY PO Last administered on 05/08/18at 09:31; Start 05/08/18 at 09:00 Gabapentin (Neurontin) 100 mg BID PO Last administered on 04/27/18at 08:47; Start 04/26/18 at 21:00; Stop 04/27/18 at 13:07; Status DC Glucagon (Glucagon) 1 mg ASDIRECTED PRN SC SEE LABEL COMMENTS; Start 04/26/18 at 17:45 Glucagon (Glucagon) 1 mg ASDIRECTED PRN SC SEE LABEL COMMENTS; Start 04/27/18 at 12:00; Status UNV Glucose (Glucose) 16 GM ASDIRECTED PRN PO SEE LABEL COMMENTS; Start 04/26/18 at 17:45 Glucose (Glucose) 16 GM ASDIRECTED PRN PO SEE LABEL COMMENTS; Start 04/27/18 at 12:00; Stop 04/27/18 at 12:00; Status DC Home Med (Med Rec Complete!) ASDIRECTED XX ; Start 04/26/18 at 18:45; Stop 04/26/18 at 18:48; Status DC Insulin Detemir (Levemir Insulin) 10 units QHS SC Last administered on 05/01/18at 20:40; Start 04/26/18 at 21:00; Stop 05/02/18 at 13:27; Status DC Insulin Human Isoph/Insulin Regular (HumuLIN 70/30 INSULIN) 10 units BID@0730,1730 SC Last administered on 05/02/18at 10:30; Start 04/27/18 at 07:30; Stop 05/02/18 at 13:27; Status DC Insulin Human Isoph/Insulin Regular (HumuLIN 70/30 INSULIN) 14 units BID@0730,1730 SC Last administered on 05/08/18at 09:29; Start 05/02/18 at 17:30 Insulin Human Lispro (HumaLOG INSULIN) 2 units AC SC Last administered on 05/02/18at 12:37; Start 04/29/18 at 12:00; Stop 05/02/18 at 13:27; Status DC Insulin Human Lispro (HumaLOG INSULIN) SEE PROTOCOL TABLE AC SC Last administered on 05/08/18at 09:28; Start 04/27/18 at 12:00 Insulin Human Lispro (HumaLOG INSULIN) SEE PROTOCOL TABLE QHS SC Last administered on 05/02/18at 20:55; Start 04/27/18 at 21:00 Isosorbide Mononitrate (Imdur) 60 mg DAILY PO Last administered on 05/08/18 09:30; Start 04/27/18 at 09:00 Levothyroxine Sodium (Synthroid) 25 mcg DAILY@06 PO Last administered on 05/08/18at 05:34; Start 04/27/18 at 06:00 Lisinopril (Prinivil) 40 mg DAILY@1000 PO Last administered on 05/08/18at 09:30; Start 04/27/18 at 10:00 Magnesium Hydroxide (Milk Of Magnesia) 30 ml DAILYPRN PRN PO CONSTIPATION; Start 04/26/18 at 17:45 Metoprolol Succinate (TopROL XL) 75 mg DAILY PO Last administered on 05/08/18at 09:29; Start 05/08/18 at 09:00; Stop 05/08/18 at 10:48; Status DC Metoprolol Succinate (TopROL XL) 75 mg DAILY PO Last administered on 04/27/18at 08:48; Start 04/27/18 at 09:00; Stop 04/27/18 at 12:41; Status DC Metoprolol Succinate (TopROL XL) 100 mg DAILY PO Last administered on 05/06/18at 10:00; Start 04/28/18 at 09:00; Stop 05/07/18 at 10:11; Status DC Metoprolol Tartrate (Lopressor) 50 mg BID PO ; Start 05/08/18 at 21:00 Ondansetron HCl (Zofran) 4 mg Q6HP PRN PO NAUSEA; Start 04/26/18 at 17:45 Pantoprazole Sodium (Protonix) 40 mg DAILY PO Last administered on 05/08/18at 0 9:31; Start 04/27/18 at 09:00 Senna (Senokot) 1 tab QHS PO Last administered on 05/07/18at 22:00; Start 04/26/18 at 21:00 VINCENT MERLOS MD May 08, 2018 10:57
--- NOTE | 2018-05-08 10:59 | IPNPDOC ---
PM&R Progress Note DATE OF SERVICE: May 08, 2018 [facility] Progress Note Subjective: Patient seen in gym catching a ball, balance improving, smiling and feeling well. REVIEW OF SYSTEMS: The following is a completed review of systems and has been reviewed. Review of systems otherwise unremarkable. PAIN: Patient self reports no pain. EYES: +right visual field cut-improving EARS, NOSE, & THROAT: +dysphagia, no rhinorrhea or hearing loss CARDIOVASCULAR: denies palpitations or chest pain PULMONARY: Negative. Denies shortness of breath GASTROINTESTINAL: Negative for diarrhea or constipation GENITOURINARY: +incontinence (improving), denies dysuria. MUSCULOSKELETAL: RLE weakness NEUROLOGICAL: +stroke with RLE paresis HEMATOLOGICAL: Negative SKIN: loop recorder incision PSYCHIATRIC: Unremarkable. All other review of systems found to be negative. PHYSICAL EXAMINATION: VITAL SIGNS: Please see below. GENERAL: Pleasant and cooperative. No acute distress. HEENT: PERRL. Extraocular movements intact. Clear conjunctiva, poor dentition, visual field cut on the right CARDIOVASCULAR: Regular rate and rhythm. No murmurs, rubs, or gallops LUNGS: Clear to auscultation bilaterally. No wheezes. No rhonchi ABDOMEN: Soft, nontender, nondistended. Positive bowel sounds. Normal active bowel sounds NEUROLOGICAL: Alert and oriented times three. Cranial nerves II through XII grossly intact. EXTREMITIES: 5\5 strength bilateral upper extremities. 4/5 right hip flexors, knee extensors, ankle DF and EHL 5/5 strength in left lower extremity. +Babinski on the right +decreased sensation in right LE to light touch negative dysmetria SKIN: chest wall incision with sutures healing well ASSESSMENT:52-year-old F with past medical history of CVA, CAD, diastolic CHF, DM who presents status post new stroke with RLE weakness and dysphagia PLAN: 1. 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 Resp: encourage incentive spirometry, monitor for aspiration 4. Cardio: pmh HTN with diastolic and systolic CHF, episodes of bradycardia, will change metoprolol from succinate to tartrate for better control and adjust from there -medicine following 5. Endo: pmh DM, continue insulin therapy, will hold metformin-well controlled 6. DVT ppx: Lovenox 7. GI ppx: Pepcid 8. :admisison UA suspicious for UTI, Ucx positive for yeast, s/p Diflucan, denies dysuria, monitor PVRs 9. DIspo: 05/20/18 to home with [id number] with Dr. Warren PMD [phone], progressing towards goals Allergies Coded Allergies: No Known Allergies (Unverified , 04/26/18) Vital Signs Vital Signs Date Time Temp Pulse Resp B/P (MAP) Pulse Ox O2 Delivery O2 Flow Rate FiO2 05/08/18 09:30 164/73 05/08/18 09:30 86 05/08/18 06:00 96.7 19 99 Laboratory Data Labs 24H Laboratory Tests 2 05/07/18 11:28: Bedside Glucose (Misc Panel) 239H 05/07/18 16:56: Bedside Glucose (Misc Panel) 159H 05/07/18 20:11: Bedside Glucose (Misc Panel) 201H 05/08/18 06:01: Bedside Glucose (Misc Panel) 132H Microbiology Microbiology 05/06/18 Urine Culture, Received Pending 04/30/18 Urine Culture - Final, Complete Lactobacillus Species Yeast Like Organism Current Medications Current Medications Current Medications Acetaminophen (Tylenol Tab) 650 mg Q4HP PRN PO fever/MILD PAIN (PS 1-4); Start 04/26/18 at 17:45 Amlodipine Besylate (Norvasc) 10 mg DAILY PO Last administered on 05/08/18at 09:30; Start 04/27/18 at 09:00 Aspirin (Aspirin Chewable) 81 mg DAILY PO Last administered on 05/08/18at 09:30; Start 04/27/18 at 09:00 Atorvastatin Calcium (Lipitor) 80 mg QHS PO Last administered on 05/07/18at 22:00; Start 04/26/18 at 21:00 Bisacodyl (Dulcolax Suppository) 10 mg DAILYPRN PRN [place] CONSTIPATION; Start 04/26/18 at 17:45 Clopidogrel Bisulfate (PLAVix) 75 mg DAILY PO Last administered on 05/08/18at 09:29; Start 04/27/18 at 09:00 Dextrose (Dextrose 50%) 25 ml ASDIRECTED PRN IV SEE LABEL COMMENTS; Start 04/26/18 at 17:45 Dextrose (Dextrose 50%) 25 ml ASDIRECTED PRN IV SEE LABEL COMMENTS; Start 04/27/18 at 12:00; Stop 04/27/18 at 12:00; Status DC Docusate Sodium (Colace) 100 mg BID PO Last administered on 05/08/18at 09:29; Start 04/26/18 at 21:00 Fluoxetine HCl (PROzac) 20 mg DAILY PO Last administered on 05/07/18at 08:21; Start 04/27/18 at 09:00; Stop 05/07/18 at 10:11; Status DC Fluoxetine HCl (PROzac) 30 mg DAILY PO Last administered on 05/08/18at 09:31; Start 05/08/18 at 09:00 Gabapentin (Neurontin) 100 mg BID PO Last administered on 04/27/18at 08:47; Start 04/26/18 at 21:00; Stop 04/27/18 at 13:07; Status DC Glucagon (Glucagon) 1 mg ASDIRECTED PRN SC SEE LABEL COMMENTS; Start 04/26/18 at 17:45 Glucagon (Glucagon) 1 mg ASDIRECTED PRN SC SEE LABEL COMMENTS; Start 04/27/18 at 12:00; Status UNV Glucose (Glucose) 16 GM ASDIRECTED PRN PO SEE LABEL COMMENTS; Start 04/26/18 at 17:45 Glucose (Glucose) 16 GM ASDIRECTED PRN PO SEE LABEL COMMENTS; Start 04/27/18 at 12:00; Stop 04/27/18 at 12:00; Status DC Home Med (Med Rec Complete!) ASDIRECTED XX ; Start 04/26/18 at 18:45; Stop 04/26/18 at 18:48; Status DC Insulin Detemir (Levemir Insulin) 10 units QHS SC Last administered on 05/01/18at 20:40; Start 04/26/18 at 21:00; Stop 05/02/18 at 13:27; Status DC Insulin Human Isoph/Insulin Regular (HumuLIN 70/30 INSULIN) 10 units BID@0730,1730 SC Last administered on 05/02/18at 10:30; Start 04/27/18 at 07:30; Stop 05/02/18 at 13:27; Status DC Insulin Human Isoph/Insulin Regular (HumuLIN 70/30 INSULIN) 14 units BID@0730,1730 SC Last administered on 05/08/18at 09:29; Start 05/02/18 at 17:30 Insulin Human Lispro (HumaLOG INSULIN) 2 units AC SC Last administered on 05/02/18at 12:37; Start 04/29/18 at 12:00; Stop 05/02/18 at 13:27; Status DC Insulin Human Lispro (HumaLOG INSULIN) SEE PROTOCOL TABLE AC SC Last administered on 05/08/18at 09:28; Start 04/27/18 at 12:00 Insulin Human Lispro (HumaLOG INSULIN) SEE PROTOCOL TABLE QHS SC Last administered on 05/02/18at 20:55; Start 04/27/18 at 21:00 Isosorbide Mononitrate (Imdur) 60 mg DAILY PO Last administered on 05/08/18at 09:30; Start 04/27/18 at 09:00 Levothyroxine Sodium (Synthroid) 25 mcg DAILY@06 PO Last administered on 05/08/18at 05:34; Start 04/27/18 at 06:00 Lisinopril (Prinivil) 40 mg DAILY@1000 PO Last administered on 05/08/18at 09:30; Start 04/27/18 at 10:00 Magnesium Hydroxide (Milk Of Magnesia) 30 ml DAILYPRN PRN PO CONSTIPATION; Start 04/26/18 at 17:45 Metoprolol Succinate (TopROL XL) 75 mg DAILY PO Last administered on 05/08/18 09:29; Start 05/08/18 at 09:00; Stop 05/08/18 at 10:48; Status DC Metoprolol Succinate (TopROL XL) 75 mg DAILY PO Last administered on 04/27/18at 08:48; Start 04/27/18 at 09:00; Stop 04/27/18 at 12:41; Status DC Metoprolol Succinate (TopROL XL) 100 mg DAILY PO Last administered on 05/06/18at 10:00; Start 04/28/18 at 09:00; Stop 05/07/18 at 10:11; Status DC Metoprolol Tartrate (Lopressor) 50 mg BID PO ; Start 05/08/18 at 21:00 Ondansetron HCl (Zofran) 4 mg Q6HP PRN PO NAUSEA; Start 04/26/18 at 17:45 Pantoprazole Sodium (Protonix) 40 mg DAILY PO Last administered on 05/08/18 09:31; Start 04/27/18 at 09:00 Senna (Senokot) 1 tab QHS PO Last administered on 05/07/18at 22:00; Start 04/26/18 at 21:00 VINCENT MERLOS MD May 08, 2018 10:59
[2018-05-08 12:42] VITALS: BP_SYST 138; BP_SYST 148; BP_DIAS 70; BP_DIAS 84
--- NOTE | 2018-05-08 13:48 | IPNPDOC ---
Date Seen The patient was seen on 05/08/18. Progress Note HPI: Patient is a 51-year-old female who presented to the ED with multiple mechanical falls over the 2 days prior to admission, and some memory changes as well as new right-sided weakness and difficulty swallowing. CT of the head showed no acute infarct or intracranial hemorrhage,old left occipital infarct was noted. She was admitted to [facility] with neurology consultation. An MRI during admission showed a left [place] ischemic stroke, making this a second stroke within a year. Per neurology recommendation, the pt was continued on aspirin, Plavix and statin. Given that this is the second stroke there was concern for cardioembolic source during admission. Patient underwent TTE that demonstrated mildly dilated left ventricle with ejection fraction of 40-45%. There was global hypokinesis without evidence of apical thrombus. Patient had aortic sclerosis, mildly dilated aortic root, no thrombus was detected. Negative bubble study. Counter Top Assembler recommended CHINTAN to look at the atrial appendage, as well as a loop recorder implanted at discharge to monitor for atrial fibrillation. CHINTAN was later considered to be too risky given concern for aspiration, but a Loop nick rder was placed by Dr. Lazcano to monitor for Afib. The pt was transferred to the care of Dr Teixeira, [facility], 04/27/18. The pt is n oted to have residual RLE weakness and dysphagia. Patient is currently sitting up in bed for lunch. She states she feels like she is gaining strength in the right lower extremity. Overall, feeling well with no concerns today. Nursing reports she has slid OOB x 2 occasions, denies injury. Denies any fevers, chills, weakness, fatigue, Headache, Chest Pain, Shortness of breath, cough, palpitations, abdominal pain, N/V/D or changes in bowel or bladder habits. PMHx: CAD DM HLD HTN hypothyroid H/O CVA 2017 PSHX: Cardiac catheterization in 05/21/2017: Normal coronaries Loop recorder PE: GEN: 52yoF, appears stated age. Well-nourished, well developed. No acute distress. Alert and oriented x 3. Pleasant, interactive. HEENT: Normocephalic, atraumatic. Sclera are nonicteric. Conjunctiva without injection. Nose midline. Nasal turbinates without bogginess. Moist mucous membranes. CHEST: Regular rate and rhythm, +S1, +S2 LUNGS: Clear to auscultation bilaterally. No wheezes, rales, or rhonchi. ABD: Round, soft, non-tender, non-distended. +Bowel sounds throughout. No rebound or guarding. EXT: No lower extremity edema appreciated. SKIN: [place], dry, warm. No rashes. NEURO: Alert and oriented x 3. UC pending A&P: Patient is a 51-year-old female who presented to the ED with multiple mechanical falls over the 2 days prior to admission, and some memory changes as well as new right-sided weakness and difficulty swallowing. CT of the head showed no acute infarct or intracranial hemorrhage,old left occipital infarct was noted. She was admitted to [facility] with neurology consultation. An MRI during admission showed a left [place] ischemic stroke, making this a second stroke within a year. Per neurology recommendation, the pt was continued on aspirin, Plavix and statin. Given that this is the second stroke there was concern for cardioembolic source during admission. Patient underwent TTE that demonstrated mildly dilated left ventricle with ejection fraction of 40-45%. There was global hypokinesis without evidence of apical thrombus. Patient had aortic sclerosis, mildly dilated aortic root, no thrombus was detected. Negative bubble study. Counter Top Assembler recommended CHINTAN to look at the atrial appendage, as well as a loop recorder implanted at discharge to monitor for atrial fibrillation. CHINTAN was later considered to be too risky given concern for aspiration, but a Loop recorder was placed by Dr. Lazcano to monitor for Afib. The pt was transferred to the care of Dr Teixeira, [facility], 04/27/18. 1. S/P CVA with residual RLE weakness and dysphagia. Mgmt as per ARU. PT/OT as per ARU. ST as per ARU. Pain control as per ARU. Bowel care as per ARU. DVT prophylaxis as per ARU. Outpt F/U with Neurology. Continue ASA81 mg daily, Plavix 75 mg daily, Lipitor 80 mg daily. Continue with Fall precautions. 2. Hypertension Lisinopril 40 mg daily, Norvasc 10 mg daily, isosorbide mononitrate 60 mg daily, metoprolol 50 BID with hold parameters. 3. Diabetes. CC diet SSI Insulin adjusting as per Dr. Teixeira. 4. Coronary artery disease ASA/Toprol/Statin. 5. Hyperlipidemia Atorvastatin 80 mg 6. GERD. PPI. 7. hypothyroid. Continue supplement. 8. Depression. Prozac. VS, I&O, 24H, Fishbone Vital Signs/I&O Vital Signs Date Time Temp Pulse Resp B/P (MAP) Pulse Ox O2 Delivery O2 Flow Rate FiO2 05/08/18 09:30 164/73 05/08/18 09:30 86 05/08/18 06:00 96.7 19 99 I&O- Last 24 Hours up to 6 AM 05/08/18 06:00 Intake Total 1010 ml Output Total 200 ml Balance 810 ml Laboratory Data 24H LABS Laboratory Tests 2 05/07/18 16:56: Bedside Glucose (Misc Panel) 159H 05/07/18 20:11: Bedside Glucose (Misc Panel) 201H 05/08/18 06:01: Bedside Glucose (Misc Panel) 132H 05/08/18 11:50: Bedside Glucose (Misc Panel) 146H Microbiology Microbiology 05/06/18 Urine Culture, Received Pending 04/30/18 Urine Culture - Final, Complete Lactobacillus Species Yeast Like Organism Elicia Patino May 08, 2018 13:48
[2018-05-08 14:00] VITALS: BP 122/60
[2018-05-08 20:00] VITALS: BP 155/73
[2018-05-08] MEDS: METOPROLOL TART 50 MG TAB PO SCH (21:00)
[2018-05-08] MEDS: ATORVASTATIN 20 MG TAB PO SCH (21:22)
[2018-05-08] MEDS: SENNA 8.6 MG TAB (SENOKOT) PO SCH (21:22)
[2018-05-09] MEDS: LEVOTHYROXINE 25MCG TABLET (0.025MG) PO SCH (05:38)
[2018-05-09 06:00] VITALS: BP 152/74
[2018-05-09 07:09] LABS: BASO % 0.5 % (0.0-1.0); EOS # 0.7 10^3/uL (0.0-0.50); EOS % 8.9 % (0.0-3.0); HEMATOCRIT 34.6 % (36.0-47.0); HEMOGLOBIN 11.5 g/dl (12.0-15.5); LYMPH # 2.4 10^3/uL (1.5-4.5); LYMPH % 30.2 % (24.0-44.0); MEAN CORPUSCULAR HEMOGLOBIN 29.8 pg (27.0-33.0); MEAN CORPUSCULAR HGB CONC 33.2 g/dl (32.0-36.5); MEAN CORPUSCULAR VOLUME 89.6 fl (80.0-96.0); MONO # 0.7 10^3/uL (0.0-0.8); NEUTROPHILS % 51.1 % (36.0-66.0); PLATELET COUNT, AUTOMATED 260 10^3/uL (150-450); RED BLOOD COUNT 3.86 10^6/uL (4.00-5.40); WHITE BLOOD COUNT 7.9 10^3/uL (4.0-10.0)
[2018-05-09 07:24] LABS: BLOOD UREA NITROGEN 16 MG/DL (7-18); CALCIUM LEVEL 8.4 MG/DL (8.5-10.1); CARBON DIOXIDE LEVEL 28 MEQ/L (21-32); CHLORIDE LEVEL 106 MEQ/L (98-107); CREATININE FOR GFR 0.74 MG/DL (0.55-1.30); GLOMERULAR FILTRATION RATE > 60.0 (>51); GLUCOSE, FASTING 110 MG/DL (70-100); POTASSIUM SERUM 3.6 MEQ/L (3.5-5.1); SODIUM LEVEL 140 MEQ/L (136-145)
[2018-05-09] MEDS: PANTOPRAZOLE 40MG TAB (PROTONIX) PO SCH (09:00)
[2018-05-09] MEDS: amLODIPine 10 MG TAB PO SCH (09:51)
[2018-05-09] MEDS: DOCUSATE SODIUM 100 MG CAP PO SCH ×2 (09:51→20:24)
[2018-05-09] MEDS: CLOPIDOGREL 75 MG TAB PO SCH (09:53)
[2018-05-09] MEDS: ASPIRIN 81 MG CHEW TABLET PO SCH (09:53)
[2018-05-09] MEDS: ISOSORBIDE MON. (IMDUR) 60 MG XR TAB PO SCH (09:54)
[2018-05-09] MEDS: FLUoxetine 10 MG CAP PO SCH (09:54)
[2018-05-09] MEDS: LISINOPRIL 40 MG TAB PO SCH (09:55)
[2018-05-09] MEDS: HumaLOG INSULIN (NovoLOG) PER UNIT SC SCH ×4 (09:58→20:25)
[2018-05-09] MEDS: HumuLIN (NovoLIN)70/30 INSULIN INJ PER UNIT SC SCH ×2 (09:59→17:39)
[2018-05-09] MEDS: METOPROLOL TART 50 MG TAB PO SCH ×2 (10:00→20:24)
[2018-05-09 14:00] VITALS: BP 124/66
[2018-05-09 20:00] VITALS: BP 137/71
[2018-05-09] MEDS: SENNA 8.6 MG TAB (SENOKOT) PO SCH (20:24)
[2018-05-09] MEDS: ATORVASTATIN 20 MG TAB PO SCH (20:24)
[2018-05-10] MEDS: LEVOTHYROXINE 25MCG TABLET (0.025MG) PO SCH (05:37)
[2018-05-10 06:00] VITALS: BP 168/88
--- NOTE | 2018-05-10 08:01 | IPNPDOC ---
PM&R Progress Note DATE OF SERVICE: May 09, 2018 Director [employer] Progress Note Subjective: Yesterday patient fell walking while turning to the right in therapy and later slid out of her chair. Patient reported initially right knee pain without swelling, able to bear weight and later denied knee pain. REVIEW OF SYSTEMS: The following is a completed review of systems and has been reviewed. Review of systems otherwise unremarkable. PAIN: Patient self reports no pain. EYES: +right visual field cut-improving EARS, NOSE, & THROAT: +dysphagia, no rhinorrhea or hearing loss CARDIOVASCULAR: denies palpitations or chest pain PULMONARY: Negative. Denies shortness of breath GASTROINTESTINAL: Negative for diarrhea or constipation GENITOURINARY: +incontinence (improving), denies dysuria. MUSCULOSKELETAL: RLE weakness NEUROLOGICAL: +stroke with RLE paresis HEMATOLOGICAL: Negative SKIN: loop recorder incision PSYCHIATRIC: Unremarkable. All other review of systems found to be negative. PHYSICAL EXAMINATION: VITAL SIGNS: Please see below. GENERAL: Pleasant and cooperative. No acute distress. HEENT: PERRL. Extraocular movements intact. Clear conjunctiva, poor dentition, visual field cut on the right CARDIOVASCULAR: Regular rate and rhythm. No murmurs, rubs, or gallops LUNGS: Clear to auscultation bilaterally. No wheezes. No rhonchi ABDOMEN: Soft, nontender, nondistended. Positive bowel sounds. Normal active bowel sounds NEUROLOGICAL: Alert and oriented times three. Cranial nerves II through XII grossly intact. EXTREMITIES: 5\5 strength bilateral upper extremities. 4/5 right hip flexors, knee extensors, ankle DF and EHL 5/5 strength in left lower extremity. +Babinski on the right +decreased sensation in right LE to light touch negative dysmetria SKIN: chest wall incision with sutures healing well ASSESSMENT:52-year-old F with past medical history of CVA, CAD, diastolic CHF, DM who presents status post new stroke with RLE weakness and dysphagia PLAN: 1. Rehab: PT/OT [employer], assess fo DME, patient with significant right sided inattention due to visual field cut which is improving, upgraded to mechanical soft diet and thins, able to ambulate further with RW, successful trial of chema- walker, balance improving, working on strengthening right leg to prevent falling to the right with turning -multiple falls on units most recently fell in therapy and slid out of her chair on 05/08/18, lap sonu, chair alarm, and bed alarms all in place and staff educated on how to properly use these safety devices, patient educated on importance of safety and she expressed awareness 2. Neuro: s/p recent [place] stroke with RLE weakness and dysphagia, right sided homonymous hemianopsia most likely from old left SCENE [place] stroke-improving -Loop recorder placed to rule out Afib, Bubble study for PFO/ASD negative on TTE, CHINTAN not performed to rule out LA appendage thrombus given high risk for aspirations-will need cardiology follow-up for LOOP reading and aortic aneurysm noted on recent ECHO -continue ASA and Plavix for 3 months, then in June switch to ASA only, continue statin for secondary stroke prevention -continue increased Prozac for mood and motor recovery to 30mg 3. Resp: encourage incentive spirometry, monitor for aspiration 4. Cardio: pmh HTN with diastolic and systolic CHF, episodes of bradycardia, continue metoprolol at lower dose -medicine following 5. Endo: pmh DM, continue insulin therapy, will hold metformin-well controlled 6. DVT ppx: Lovenox 7. GI ppx: Pepcid 8. :admisison UA suspicious for UTI, Ucx positive for yeast, s/p Diflucan, denies dysuria- repeat Ucx positive for Staph Simulans will start Macrobid and Bacid 9. DIspo: 05/20/18 to home with [id number] with Dr. Warren PMD [phone], progressing towards goals Allergies Coded Allergies: No Known Allergies (Unverified , 04/26/18) Vital Signs Vital Signs Date Time Temp Pulse Resp B/P (MAP) Pulse Ox O2 Delivery O2 Flow Rate FiO2 05/10/18 06:00 97.4 80 18 168/88 (114) 98 Laboratory Data Labs 24H Laboratory Tests 2 05/09/18 11:31: Bedside Glucose (Misc Panel) 228H 05/09/18 16:30: Bedside Glucose (Misc Panel) 132H 05/09/18 20:21: Bedside Glucose (Misc Panel) 234H 05/10/18 06:39: Bedside Glucose (Misc Panel) 122H Microbiology Microbiology 05/06/18 Urine Culture - Final, Complete Staphylococcus Simulans Lactobacillus Species 04/30/18 Urine Culture - Final, Complete Lactobacillus Species Yeast Like Organism Current Medications Current Medications Current Medications Acetaminophen (Tylenol Tab) 650 mg Q4HP PRN PO fever/MILD PAIN (PS 1-4); Start 04/26/18 at 17:45 Amlodipine Besylate (Norvasc) 10 mg DAILY PO Last administered on 05/09/18at 09:51; Start 04/27/18 at 09:00 Aspirin (Aspirin Chewable) 81 mg DAILY PO Last administered on 05/09/18at 09:53; Start 04/27/18 at 09:00 Atorvastatin Calcium (Lipitor) 80 mg QHS PO Last administered on 05/09/18at 20:24; Start 04/26/18 at 21:00 Bisacodyl (Dulcolax Suppository) 10 mg DAILYPRN PRN AL CONSTIPATION; Start 04/26/18 at 17:45 Clopidogrel Bisulfate (PLAVix) 75 mg DAILY PO Last administered on 05/09/18at 09:53; Start 04/27/18 at 09:00 Dextrose (Dextrose 50%) 25 ml ASDIRECTED PRN IV SEE LABEL COMMENTS; Start 04/26/18 at 17:45 Dextrose (Dextrose 50%) 25 ml ASDIRECTED PRN IV SEE LABEL COMMENTS; Start 04/27/18 at 12:00; Stop 04/27/18 at 12:00; Status DC Docusate Sodium (Colace) 100 mg BID PO Last administered on 05/09/18at 20:24; Start 04/26/18 at 21:00 Fluoxetine HCl (PROzac) 20 mg DAILY PO Last administered on 05/07/18at 08:21; Start 04/27/18 at 09:00; Stop 05/07/18 at 10:11; Status DC Fluoxetine HCl (PROzac) 30 mg DAILY PO Last administered on 05/09/18at 09:54; Start 05/08/18 at 09:00 Gabapentin (Neurontin) 100 mg BID PO Last administered on 04/27/18at 08:47; Start 04/26/18 at 21:00; Stop 04/27/18 at 13:07; Status DC Glucagon (Glucagon) 1 mg ASDIRECTED PRN SC SEE LABEL COMMENTS; Start 04/26/18 at 17:45 Glucagon (Glucagon) 1 mg ASDIRECTED PRN SC SEE LABEL COMMENTS; Start 04/27/18 at 12:00; Status UNV Glucose (Glucose) 16 GM ASDIRECTED PRN PO SEE LABEL COMMENTS; Start 04/26/18 at 17:45 Glucose (Glucose) 16 GM ASDIRECTED PRN PO SEE LABEL COMMENTS; Start 04/27/18 at 12:00; Stop 04/27/18 at 12:00; Status DC Home Med (Med Rec Complete!) ASDIRECTED XX ; Start 04/26/18 at 18:45; Stop 04/26/18 at 18:48; Status DC Insulin Detemir (Levemir Insulin) 10 units QHS SC Last administered on 05/01/18at 20:40; Start 04/26/18 at 21:00; Stop 05/02/18 at 13:27; Status DC Insulin Human Isoph/Insulin Regular (HumuLIN 70/30 INSULIN) 10 units B ID@0730,1730 SC Last administered on 05/02/18at 10:30; Start 04/27/18 at 07:30; Stop 05/02/18 at 13:27; Status DC Insulin Human Isoph/Insulin Regular (HumuLIN 70/30 INSULIN) 14 units BID@0730,1730 SC Last administered on 05/09/18at 17:39; Start 05/02/18 at 17:30 Insulin Human Lispro (HumaLOG INSULIN) 2 units AC SC Last administered on 05/02/18at 12:37; Start 04/29/18 at 12:00; Stop 05/02/18 at 13:27; Status DC Insulin Human Lispro (HumaLOG INSULIN) SEE PROTOCOL TABLE AC SC Last administered on 05/09/18at 17:40; Start 04/27/18 at 12:00 Insulin Human Lispro (HumaLOG INSULIN) SEE PROTOCOL TABLE QHS SC Last administered on 05/02/18at 20:55; Start 04/27/18 at 21:00 Isosorbide Mononitrate (Imdur) 60 mg DAILY PO Last administered on 05/09/18at 09:54; Start 04/27/18 at 09:00 Levothyroxine Sodium (Synthroid) 25 mcg DAILY@06 PO Last administered on 05/10/18at 05:37; Start 04/27/18 at 06:00 Lisinopril (Prinivil) 40 mg DAILY@1000 PO Last administered on 05/09/18at 09:55; Start 04/27/18 at 10:00 Magnesium Hydroxide (Milk Of Magnesia) 30 ml DAILYPRN PRN PO CONSTIPATION; Start 04/26/18 at 17:45 Metoprolol Succinate (TopROL XL) 75 mg DAILY PO Last administered on 05/08/18at 09:29; Start 05/08/18 at 09:00; Stop 05/08/18 at 10:48; Status DC Metoprolol Succinate (TopROL XL) 75 mg DAILY PO Last administered on 04/27/18at 08:48; Start 04/27/18 at 09:00; Stop 04/27/18 at 12:41; Status DC Metoprolol Succinate (TopROL XL) 100 mg DAILY PO Last administered on 05/06/18at 10:00; Start 04/28/18 at 09:00; Stop 05/07/18 at 10:11; Status DC Metoprolol Tartrate (Lopressor) 50 mg BID PO Last administered on 05/09/18at 10:00; Start 05/08/18 at 21:00 Ondansetron HCl (Zofran) 4 mg Q6HP PRN PO NAUSEA; Start 04/26/18 at 17:45 Pantoprazole Sodium (Protonix) 40 mg DAILY PO Last administered on 05/09/18at 09:00; Start 04/27/18 at 09:00 Senna (Senokot) 1 tab QHS PO Last administered on 05/09/18at 20:24; Start 04/26/18 at 21:00 VINCENT MERLOS MD May 10, 2018 08:01
[2018-05-10] MEDS: ASPIRIN 81 MG CHEW TABLET PO SCH (09:25)
[2018-05-10] MEDS: ISOSORBIDE MON. (IMDUR) 60 MG XR TAB PO SCH (09:26)
[2018-05-10] MEDS: DOCUSATE SODIUM 100 MG CAP PO SCH ×2 (09:26→21:53)
[2018-05-10] MEDS: LISINOPRIL 40 MG TAB PO SCH (09:26)
[2018-05-10] MEDS: METOPROLOL TART 50 MG TAB PO SCH ×2 (09:27→21:53)
[2018-05-10] MEDS: LACTOBACILLUS ACIDOPHILUS CAP (BACID) PO SCH ×3 (09:27→21:52)
[2018-05-10] MEDS: amLODIPine 10 MG TAB PO SCH (09:28)
[2018-05-10] MEDS: PANTOPRAZOLE 40MG TAB (PROTONIX) PO SCH (09:28)
[2018-05-10] MEDS: CLOPIDOGREL 75 MG TAB PO SCH (09:28)
[2018-05-10] MEDS: FLUoxetine 10 MG CAP PO SCH (09:28)
[2018-05-10] MEDS: HumaLOG INSULIN (NovoLOG) PER UNIT SC SCH ×4 (09:29→21:54)
[2018-05-10] MEDS: HumuLIN (NovoLIN)70/30 INSULIN INJ PER UNIT SC SCH ×2 (09:30→16:37)
[2018-05-10] MEDS: NITROFURANTOIN (MACROBID) 100 MG CAP PO SCH ×2 (10:07→21:53)
[2018-05-10 14:00] VITALS: BP 151/78
[2018-05-10 20:00] VITALS: BP 141/66
[2018-05-10] MEDS: SENNA 8.6 MG TAB (SENOKOT) PO SCH (21:52)
[2018-05-10] MEDS: ATORVASTATIN 20 MG TAB PO SCH (21:53)
[2018-05-11] MEDS: LEVOTHYROXINE 25MCG TABLET (0.025MG) PO SCH (05:34)
[2018-05-11 06:00] VITALS: BP 164/77
[2018-05-11] MEDS: HumuLIN (NovoLIN)70/30 INSULIN INJ PER UNIT SC SCH ×2 (07:48→16:38)
[2018-05-11] MEDS: HumaLOG INSULIN (NovoLOG) PER UNIT SC SCH ×4 (07:48→20:47)
[2018-05-11] MEDS: ASPIRIN 81 MG CHEW TABLET PO SCH (07:49)
[2018-05-11] MEDS: NITROFURANTOIN (MACROBID) 100 MG CAP PO SCH ×2 (07:49→20:47)
[2018-05-11] MEDS: FLUoxetine 10 MG CAP PO SCH (07:49)
[2018-05-11] MEDS: ISOSORBIDE MON. (IMDUR) 60 MG XR TAB PO SCH (07:49)
[2018-05-11] MEDS: amLODIPine 10 MG TAB PO SCH (07:49)
[2018-05-11] MEDS: LACTOBACILLUS ACIDOPHILUS CAP (BACID) PO SCH ×3 (07:49→20:47)
[2018-05-11] MEDS: DOCUSATE SODIUM 100 MG CAP PO SCH ×2 (07:50→20:47)
[2018-05-11] MEDS: CLOPIDOGREL 75 MG TAB PO SCH (07:50)
[2018-05-11] MEDS: PANTOPRAZOLE 40MG TAB (PROTONIX) PO SCH (07:50)
[2018-05-11] MEDS: METOPROLOL TART 50 MG TAB PO SCH ×2 (07:50→20:47)
[2018-05-11] MEDS: LISINOPRIL 40 MG TAB PO SCH (10:36)
[2018-05-11 10:37] VITALS: BP 136/76
[2018-05-11 14:11] VITALS: BP 112/58
[2018-05-11 20:12] VITALS: BP 142/73
[2018-05-11] MEDS: ATORVASTATIN 20 MG TAB PO SCH (20:47)
[2018-05-11] MEDS: SENNA 8.6 MG TAB (SENOKOT) PO SCH (20:47)
[2018-05-12] MEDS: LEVOTHYROXINE 25MCG TABLET (0.025MG) PO SCH (05:42)
[2018-05-12 05:58] VITALS: BP 166/75
[2018-05-12] MEDS: LACTOBACILLUS ACIDOPHILUS CAP (BACID) PO SCH ×3 (08:29→20:43)
[2018-05-12] MEDS: DOCUSATE SODIUM 100 MG CAP PO SCH ×2 (08:29→20:42)
[2018-05-12] MEDS: ASPIRIN 81 MG CHEW TABLET PO SCH (08:29)
[2018-05-12] MEDS: CLOPIDOGREL 75 MG TAB PO SCH (08:29)
[2018-05-12] MEDS: ISOSORBIDE MON. (IMDUR) 60 MG XR TAB PO SCH (08:29)
[2018-05-12] MEDS: METOPROLOL TART 50 MG TAB PO SCH ×2 (08:29→20:42)
[2018-05-12] MEDS: PANTOPRAZOLE 40MG TAB (PROTONIX) PO SCH (08:30)
[2018-05-12] MEDS: NITROFURANTOIN (MACROBID) 100 MG CAP PO SCH ×2 (08:30→20:43)
[2018-05-12] MEDS: FLUoxetine 10 MG CAP PO SCH (08:30)
[2018-05-12] MEDS: amLODIPine 10 MG TAB PO SCH (08:30)
[2018-05-12] MEDS: HumuLIN (NovoLIN)70/30 INSULIN INJ PER UNIT SC SCH ×2 (08:30→16:42)
[2018-05-12] MEDS: HumaLOG INSULIN (NovoLOG) PER UNIT SC SCH ×4 (08:31→20:43)
[2018-05-12 10:00] VITALS: BP 123/70
[2018-05-12] MEDS: LISINOPRIL 40 MG TAB PO SCH (10:00)
[2018-05-12 14:25] VITALS: BP 114/53
[2018-05-12 20:05] VITALS: BP 143/72
[2018-05-12] MEDS: SENNA 8.6 MG TAB (SENOKOT) PO SCH (20:41)
[2018-05-12] MEDS: ATORVASTATIN 20 MG TAB PO SCH (20:42)
[2018-05-13 06:00] VITALS: BP 144/83
[2018-05-13] MEDS: LEVOTHYROXINE 25MCG TABLET (0.025MG) PO SCH (06:26)
[2018-05-13] MEDS: ASPIRIN 81 MG CHEW TABLET PO SCH (08:02)
[2018-05-13] MEDS: PANTOPRAZOLE 40MG TAB (PROTONIX) PO SCH (08:02)
[2018-05-13] MEDS: amLODIPine 10 MG TAB PO SCH (08:02)
[2018-05-13] MEDS: NITROFURANTOIN (MACROBID) 100 MG CAP PO SCH ×2 (08:02→20:24)
[2018-05-13] MEDS: FLUoxetine 10 MG CAP PO SCH (08:02)
[2018-05-13] MEDS: DOCUSATE SODIUM 100 MG CAP PO SCH ×2 (08:02→20:24)
[2018-05-13] MEDS: CLOPIDOGREL 75 MG TAB PO SCH (08:02)
[2018-05-13] MEDS: LACTOBACILLUS ACIDOPHILUS CAP (BACID) PO SCH ×3 (08:02→20:25)
[2018-05-13] MEDS: ISOSORBIDE MON. (IMDUR) 60 MG XR TAB PO SCH (08:02)
[2018-05-13] MEDS: METOPROLOL TART 50 MG TAB PO SCH ×2 (08:03→20:28)
[2018-05-13] MEDS: HumaLOG INSULIN (NovoLOG) PER UNIT SC SCH ×4 (08:03→20:59)
[2018-05-13] MEDS: HumuLIN (NovoLIN)70/30 INSULIN INJ PER UNIT SC SCH ×2 (08:03→16:47)
[2018-05-13] MEDS: LISINOPRIL 40 MG TAB PO SCH (10:09)
--- NOTE | 2018-05-13 12:13 | IPNPDOC ---
Date Seen The patient was seen on 05/13/18. Progress Note HPI: Patient is a 51-year-old female who presented to the ED with multiple mechanical falls over the 2 days prior to admission, and some memory changes as well as new right-sided weakness and difficulty swallowing. CT of the head showed no acute infarct or intracranial hemorrhage,old left occipital infarct was noted. She was admitted to [facility] with neurology consultation. An MRI during admission showed a left [place] ischemic stroke, making this a second stroke within a year. Per neurology recommendation, the pt was continued on aspirin, Plavix and statin. Given that this is the second stroke there was concern for cardioembolic source during admission. Patient underwent TTE that demonstrated mildly dilated left ventricle with ejection fraction of 40-45%. There was global hypokinesis without evidence of apical thrombus. Patient had aortic sclerosis, mildly dilated aortic root, no thrombus was detected. Negative bubble study. Supervisor Seaming recommended CHINTAN to look at the atrial appendage, as well as a loop recorder implanted at discharge to monitor for atrial fibrillation. CHINTAN was later considered to be too risky given concern for aspiration, but a Loop nick rder was placed by Dr. Lazcano to monitor for Afib. The pt was transferred to the care of Dr Teixeira, [facility], 04/27/18. The pt is n oted to have residual RLE weakness and dysphagia. The pt is OOB to chair, reports no voiced concerns. Denies any fevers, chills, weakness, fatigue, Headache, Chest Pain, Shortness of breath, cough, palpitations, abdominal pain, N/V/D or changes in bowel or bladder habits. PMHx: CAD DM HLD HTN hypothyroid H/O CVA 2017 PSHX: Cardiac catheterization in 05/21/2017: Normal coronaries Loop recorder PE: GEN: 52yoF, appears stated age. Well-nourished, well developed. No acute distre ss. Alert and oriented x 3. Pleasant, interactive. HEENT: Normocephalic, atraumatic. Sclera are nonicteric. Conjunctiva without injection. Nose midline. Nasal turbinates without bogginess. Moist mucous membranes. CHEST: Regular rate and rhythm, +S1, +S2 LUNGS: Clear to auscultation bilaterally. No wheezes, rales, or rhonchi. ABD: Round, soft, non-tender, non-distended. +Bowel sounds throughout. No rebound or guarding. EXT: No lower extremity edema appreciated. SKIN: [place], dry, warm. No rashes. NEURO: Alert and oriented x 3. A&P: Patient is a 51-year-old female who presented to the ED with multiple mechanical falls over the 2 days prior to admission, and some memory changes as well as new right-sided weakness and difficulty swallowing. CT of the head showed no acute infarct or intracranial hemorrhage,old left occipital infarct was noted. She was admitted to [facility] with neurology consultation. An MRI during admission showed a left [place] ischemic stroke, making this a second stroke within a year. Per neurology recommendation, the pt was continued on aspirin, Plavix and statin. Given that this is the second stroke there was concern for cardioembolic source during admission. Patient underwent TTE that demonstrated mildly dilated left ventricle with ejection fraction of 40-45%. There was global hypokinesis without evidence of apical thrombus. Patient had aortic sclerosis, mildly dilated aortic root, no thrombus was detected. Negative bubble study. Supervisor Seaming recommended CHINTAN to look at the atrial appendage, as well as a loop recorder implanted at discharge to monitor for atrial fibrillation. CHINTAN was later considered to be too risky given concern for aspiration, but a Loop recorder was placed by Dr. Lazcano to monitor for Afib. The pt was transferred to the care of Dr Teixeira, [facility], 04/27/18. 1. S/P CVA with residual RLE weakness and dysphagia. Mgmt as per ARU. PT/OT as per ARU. ST as per ARU. Pain control as per ARU. Bowel care as per ARU. DVT prophylaxis as per ARU. Outpt F/U with Neurology. Continue ASA81 mg daily, Plavix 75 mg daily, Lipitor 80 mg daily. Continue with Fall precautions. 2. Hypertension Lisinopril 40 mg daily, Norvasc 10 mg daily, isosorbide mononitrate 60 mg daily, metoprolol 50 BID with hold parameters. SBP trend 114-144 3. Diabetes. CC diet SSI Insulin adjusting as per Dr. Teixeira. 4. Coronary artery disease ASA/Toprol/Statin. 5. Hyperlipidemia Atorvastatin 80 mg 6. GERD. PPI. 7. hypothyroid. Continue supplement. 8. Depression. Prozac. 9. UTI. UC Staph simulans. Macrobid D4/5 VS, I&O, 24H, Fishbone Vital Signs/I&O Vital Signs Date Time Temp Pulse Resp B/P (MAP) Pulse Ox O2 Delivery O2 Flow Rate FiO2 05/13/18 08:03 72 144/83 05/13/18 06:00 97.2 18 98 I&O- Last 24 Hours up to 6 AM 05/13/18 06:00 Intake Total 960 ml Balance 960 ml Laboratory Data 24H LABS Laboratory Tests 2 05/12/18 16:39: Bedside Glucose (Misc Panel) 81 05/12/18 19:43: Bedside Glucose (Misc Panel) 217H 05/13/18 05:49: Bedside Glucose (Misc Panel) 146H 05/13/18 11:28: Bedside Glucose (Misc Panel) 277H Microbiology Microbiology 05/06/18 Urine Culture - Final, Complete Staphylococcus Simulans Lactobacillus Species Elicia Patino May 13, 2018 12:13
[2018-05-13 13:54] VITALS: BP 114/58
[2018-05-13 20:00] VITALS: BP 140/82
[2018-05-13] MEDS: SENNA 8.6 MG TAB (SENOKOT) PO SCH (20:25)
[2018-05-13] MEDS: ATORVASTATIN 20 MG TAB PO SCH (20:25)
[2018-05-14] MEDS: LEVOTHYROXINE 25MCG TABLET (0.025MG) PO SCH (05:30)
[2018-05-14 06:00] VITALS: BP 148/84
[2018-05-14 06:34] LABS: BASO # 0.1 10^3/uL (0.0-0.2); BASO % 0.9 % (0.0-1.0); EOS # 1.1 10^3/uL (0.0-0.50); EOS % 15.8 % (0.0-3.0); HEMATOCRIT 36.9 % (36.0-47.0); HEMOGLOBIN 12.1 g/dl (12.0-15.5); LYMPH # 1.8 10^3/uL (1.5-4.5); LYMPH % 25.2 % (24.0-44.0); MEAN CORPUSCULAR HEMOGLOBIN 29.7 pg (27.0-33.0); MEAN CORPUSCULAR HGB CONC 32.8 g/dl (32.0-36.5); MEAN CORPUSCULAR VOLUME 90.4 fl (80.0-96.0); MONO # 0.6 10^3/uL (0.0-0.8); MONO % 8.7 % (0.0-5.0); NEUTROPHILS # 3.5 10^3/uL (1.8-7.7); NEUTROPHILS % 49.3 % (36.0-66.0); PLATELET COUNT, AUTOMATED 265 10^3/uL (150-450); RED BLOOD COUNT 4.08 10^6/uL (4.00-5.40)
[2018-05-14 07:02] LABS: BLOOD UREA NITROGEN 12 MG/DL (7-18); CALCIUM LEVEL 8.6 MG/DL (8.5-10.1); CARBON DIOXIDE LEVEL 29 MEQ/L (21-32); CHLORIDE LEVEL 103 MEQ/L (98-107); CREATININE FOR GFR 0.89 MG/DL (0.55-1.30); GLOMERULAR FILTRATION RATE > 60.0 (>51); GLUCOSE, FASTING 179 MG/DL (70-100); SODIUM LEVEL 137 MEQ/L (136-145)
[2018-05-14] MEDS: METOPROLOL TART 50 MG TAB PO SCH ×2 (09:00→20:13)
[2018-05-14] MEDS: HumaLOG INSULIN (NovoLOG) PER UNIT SC SCH ×4 (09:25→20:04)
[2018-05-14] MEDS: HumuLIN (NovoLIN)70/30 INSULIN INJ PER UNIT SC SCH ×2 (09:25→17:54)
[2018-05-14] MEDS: FLUoxetine 10 MG CAP PO SCH (09:25)
[2018-05-14] MEDS: LACTOBACILLUS ACIDOPHILUS CAP (BACID) PO SCH ×3 (09:26→20:13)
[2018-05-14] MEDS: DOCUSATE SODIUM 100 MG CAP PO SCH ×2 (09:26→20:12)
[2018-05-14] MEDS: LISINOPRIL 40 MG TAB PO SCH (09:26)
[2018-05-14] MEDS: PANTOPRAZOLE 40MG TAB (PROTONIX) PO SCH (09:26)
[2018-05-14] MEDS: CLOPIDOGREL 75 MG TAB PO SCH (09:26)
[2018-05-14] MEDS: ISOSORBIDE MON. (IMDUR) 60 MG XR TAB PO SCH (09:27)
[2018-05-14] MEDS: NITROFURANTOIN (MACROBID) 100 MG CAP PO SCH ×2 (09:27→20:12)
[2018-05-14] MEDS: ASPIRIN 81 MG CHEW TABLET PO SCH (09:27)
[2018-05-14] MEDS: amLODIPine 10 MG TAB PO SCH (09:28)
--- NOTE | 2018-05-14 10:57 | IPNPDOC ---
Date Seen The patient was seen on 05/14/18. Progress Note HPI: Patient is a 51-year-old female who presented to the ED with multiple mechanical falls over the 2 days prior to admission, and some memory changes as well as new right-sided weakness and difficulty swallowing. CT of the head showed no acute infarct or intracranial hemorrhage,old left occipital infarct was noted. She was admitted to [facility] with neurology consultation. An MRI during admission showed a left [place] ischemic stroke, making this a second stroke within a year. Per neurology recommendation, the pt was continued on aspirin, Plavix and statin. Given that this is the second stroke there was concern for cardioembolic source during admission. Patient underwent TTE that demonstrated mildly dilated left ventricle with ejection fraction of 40-45%. There was global hypokinesis without evidence of apical thrombus. Patient had aortic sclerosis, mildly dilated aortic root, no thrombus was detected. Negative bubble study. Rn Ortho recommended CHINTAN to look at the atrial appendage, as well as a loop recorder implanted at discharge to monitor for atrial fibrillation. CHINTAN was later considered to be too risky given concern for aspiration, but a Loop recorder was placed by Dr. Lazcano to monitor for Afib. The pt was transferred to the care of Dr Teixeira, [facility], 04/27/18. The pt is noted to have residual RLE weakness and dysphagia. The pt is OOB to chair, reports no voiced concerns. She is playing cards with a family member. Denies any fevers, chills, weakness, fatigue, Headache, Chest Pain, Shortness of breath, cough, palpitations, abdominal pain, N/V/D or changes in bowel or bladder habits. PMHx: CAD DM HLD HTN hypothyroid H/O CVA 2017 PSHX: Cardiac catheterization in 05/21/2017: Normal coronaries Loop recorder PE: GEN: 52yoF, appears stated age. Well-nourished, well developed. No acute distress. Alert and oriented x 3. Pleasant, interactive. HEENT: Normocephalic, atraumatic. Sclera are nonicteric. Conjunctiva without injection. Moist mucous membranes. CHEST: Regular rate and rhythm, +S1, +S2 LUNGS: Clear to auscultation bilaterally. No wheezes, rales, or rhonchi. ABD: Round, soft, non-tender, non-distended. +Bowel sounds throughout. No rebound or guarding. EXT: No lower extremity edema appreciated. SKIN: [place], dry, warm. No rashes. NEURO: Alert and oriented x 3. A&P: Patient is a 51-year-old female who presented to the ED with multiple mechanical falls over the 2 days prior to admission, and some memory changes as well as new right-sided weakness and difficulty swallowing. CT of the head showed no acute infarct or intracranial hemorrhage,old left occipital infarct was noted. She was admitted to [facility] with neurology consultation. An MRI during admission showed a left [place] ischemic stroke, making this a second stroke within a year. Per neurology recommendation, the pt was continued on aspirin, Plavix and statin. Given that this is the second stroke there was concern for cardioembolic source during admission. Patient underwent TTE that demonstrated mildly dilated left ventricle with ejection fraction of 40-45%. There was global hypokinesis without evidence of apical thrombus. Patient had aortic sclerosis, mildly dilated aortic root, no thrombus was detected. Negative bubble study. Rn Ortho recommended CHINTAN to look at the atrial appendage, as well as a loop recorder implanted at discharge to monitor for atrial fibrillation. CHINTAN was later considered to be too risky given concern for aspiration, but a Loop recorder was placed by Dr. Lazcano to monitor for Afib. The pt was transferred to the care of Dr Teixeira, [facility], 04/27/18. 1. S/P CVA with residual RLE weakness and dysphagia. Mgmt as per ARU. PT/OT as per ARU. ST as per ARU. Pain control as per ARU. Bowel care as per ARU. DVT prophylaxis as per ARU. Outpt F/U with Neurology. Continue ASA81 mg daily, Plavix 75 mg daily, Lipitor 80 mg daily. Continue with Fall precautions. Disposition as per Dr Teixeira. 2. Hypertension Lisinopril 40 mg daily, Norvasc 10 mg daily, isosorbide mononitrate 60 mg daily, metoprolol 50 BID with hold parameters. SBP trend 114-148 3. Diabetes. CC diet SSI Insulin adjusting as per Dr. Teixeira. 4. Coronary artery disease ASA/Toprol/Statin. 5. Hyperlipidemia Atorvastatin 80 mg 6. GERD. PPI. 7. hypothyroid. Continue supplement. 8. Depression. Prozac. 9. UTI. UC Staph simulans. Macrobid D5/5 VS, I&O, 24H, Fishbone Vital Signs/I&O Vital Signs Date Time Temp Pulse Resp B/P (MAP) Pulse Ox O2 Delivery O2 Flow Rate FiO2 05/14/18 09:28 52 148/84 05/14/18 06:00 96.3 18 97 I&O- Last 24 Hours up to 6 AM 05/14/18 06:00 Intake Total 390 ml Balance 390 ml Laboratory Data 24H LABS Laboratory Tests 2 05/13/18 11:28: Bedside Glucose (Misc Panel) 277H 05/13/18 16:38: Bedside Glucose (Misc Panel) 97 05/13/18 20:58: Bedside Glucose (Misc Panel) 170H 05/14/18 06:11: Immature Granulocyte % (Auto) 0.1, White Blood Count 7.0, Red Blood Count 4.08, Hemoglobin 12.1, Hematocrit 36.9, Mean Corpuscular Volume 90.4, Mean Corpuscular Hemoglobin 29.7, Mean Corpuscular Hemoglobin Concent 32.8, Red Cell Distribution Width 13.1, Platelet Count 265, Neutrophils (%) (Auto) 49.3, Lymphocytes (%) (Auto) 25.2, Monocytes (%) (Auto) 8.7H, Eosinophils (%) (Auto) 15.8H, Basophils (%) (Auto) 0.9, Neutrophils # (Auto) 3.5, Lymphocytes # (Auto) 1.8, Monocytes # (Auto) 0.6, Eosinophils # (Auto) 1.1H, Basophils # (Auto) 0.1, Nucleated Red Blood Cells % (auto) 0.0, Anion Gap 5L, Glomerular Filtration Rate > 60.0, Blood Urea Nitrogen 12, Creatinine 0.89, Sodium Level 137, Potassium Level 4.0, Chloride Level 103, Carbon Dioxide Level 29, Calcium Level 8.6 CBC/BMP Laboratory Tests 05/14/18 06:11 Red Blood Count 4.08, Mean Corpuscular Volume 90.4, Mean Corpuscular Hemoglobin 29.7, Mean Corpuscular Hemoglobin Concent 32.8, Red Cell Distribution Width 13.1, Neutrophils (%) (Auto) 49.3, Lymphocytes (%) (Auto) 25.2, Monocytes (%) (Auto) 8.7 H, Eosinophils (%) (Auto) 15.8 H, Basophils (%) (Auto) 0.9, Neutrophils # (Auto) 3.5, Lymphocytes # (Auto) 1.8, Monocytes # (Auto) 0.6, Eosinophils # (Auto) 1.1 H, Basophils # (Auto) 0.1, Calcium Level 8.6 Microbiology Microbiology 05/06/18 Urine Culture - Final, Complete Staphylococcus Simulans Lactobacillus Species Elicia Patino May 14, 2018 10:57
[2018-05-14 14:00] VITALS: BP 135/71
--- NOTE | 2018-05-14 14:08 | IPNPDOC ---
PM&R Progress Note DATE OF SERVICE: May 13, 2018 [employer] Progress Note Subjective: Yesterday patient seen in bed states she feels well and is eager to return to home on Sunday. She is happy her discharge date has been pushed up. REVIEW OF SYSTEMS: The following is a completed review of systems and has been reviewed. Review of systems otherwise unremarkable. PAIN: Patient self reports no pain. EYES: +right visual field cut-improving EARS, NOSE, & THROAT: +dysphagia, no rhinorrhea or hearing loss CARDIOVASCULAR: denies palpitations or chest pain PULMONARY: Negative. Denies shortness of breath GASTROINTESTINAL: Negative for diarrhea or constipation GENITOURINARY: +incontinence (improving), denies dysuria. MUSCULOSKELETAL: RLE weakness NEUROLOGICAL: +stroke with RLE paresis HEMATOLOGICAL: Negative SKIN: loop recorder incision PSYCHIATRIC: Unremarkable. All other review of systems found to be negative. PHYSICAL EXAMINATION: VITAL SIGNS: Please see below. GENERAL: Pleasant and cooperative. No acute distress. HEENT: PERRL. Extraocular movements intact. Clear conjunctiva, poor dentition, visual field cut on the right CARDIOVASCULAR: Regular rate and rhythm. No murmurs, rubs, or gallops LUNGS: Clear to auscultation bilaterally. No wheezes. No rhonchi ABDOMEN: Soft, nontender, nondistended. Positive bowel sounds. Normal active bowel sounds NEUROLOGICAL: Alert and oriented times three. Cranial nerves II through XII grossly intact. EXTREMITIES: 5\5 strength bilateral upper extremities. 4/5 right hip flexors, knee extensors, ankle DF and EHL 5/5 strength in left lower extremity. +Babinski on the right +decreased sensation in right LE to light touch negative dysmetria SKIN: chest wall incision with sutures healing well ASSESSMENT:52-year-old F with past medical history of CVA, CAD, diastolic CHF, DM who presents status post new stroke with RLE weakness and dysphagia PLAN: 1. Rehab: PT/OT G[employer], assess fo DME, patient with significant right sided inattention due to visual field cut which is improving, upgraded to mechanical soft diet and thins, able to ambulate further with RW, successful trial of chema- walker, balance improving, working on strengthening right leg to prevent falling to the right with turning -multiple falls on units most recently fell in therapy and slid out of her chair on 05/08/18, lap sonu, chair alarm, and bed alarms all in place and staff educated on how to properly use these safety devices, patient educated on importance of safety and she expressed awareness 2. 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 Resp: encourage incentive spirometry, monitor for aspiration 4. Cardio: pmh HTN with diastolic and systolic CHF, episodes of bradycardia, continue metoprolol at lower dose -medicine following 5. Endo: pmh DM, continue insulin therapy, will hold metformin-well controlled 6. DVT ppx: Lovenox 7. GI ppx: Pepcid 8. :admisison UA suspicious for UTI, Ucx positive for yeast, s/p Diflucan, denies dysuria- repeat Ucx positive for Staph Simulans c/u Macrobid and Bacid 9. Dspo: 05/17/18 to home with [id number] with Dr. Warren PMD [phone], progressing towards goals Allergies Coded Allergies: No Known Allergies (Unverified , 04/26/18) Vital Signs Vital Signs Date Time Temp Pulse Resp B/P (MAP) Pulse Ox O2 Delivery O2 Flow Rate FiO2 05/14/18 09:28 52 148/84 05/14/18 06:00 96.3 18 97 Laboratory Data CBC/BMP Laboratory Tests 05/14/18 06:11 Red Blood Count 4.08, Mean Corpuscular Volume 90.4, Mean Corpuscular Hemoglobin 29.7, Mean Corpuscular Hemoglobin Concent 32.8, Red Cell Distribution Width 13.1, Neutrophils (%) (Auto) 49.3, Lymphocytes (%) (Auto) 25.2, Monocytes (%) (Auto) 8.7 H, Eosinophils (%) (Auto) 15.8 H, Basophils (%) (Auto) 0.9, Neutrophils # (Auto) 3.5, Lymphocytes # (Auto) 1.8, Monocytes # (Auto) 0.6, Eosinophils # (Auto) 1.1 H, Basophils # (Auto) 0.1, Calcium Level 8.6 Labs 24H Laboratory Tests 2 05/13/18 16:38: Bedside Glucose (Misc Panel) 97 05/13/18 20:58: Bedside Glucose (Misc Panel) 170H 05/14/18 06:11: Immature Granulocyte % (Auto) 0.1, White Blood Count 7.0, Red Blood Count 4.08, Hemoglobin 12.1, Hematocrit 36.9, Mean Corpuscular Volume 90.4, Mean Corpuscular Hemoglobin 29.7, Mean Corpuscular Hemoglobin Concent 32.8, Red Cell Distribution Width 13.1, Platelet Count 265, Neutrophils (%) (Auto) 49.3, Lymphocytes (%) (Auto) 25.2, Monocytes (%) (Auto) 8.7H, Eosinophils (%) (Auto) 15.8H, Basophils (%) (Auto) 0.9, Neutrophils # (Auto) 3.5, Lymphocytes # (Auto) 1.8, Monocytes # (Auto) 0.6, Eosinophils # (Auto) 1.1H, Basophils # (Auto) 0.1, Nucleated Red Blood Cells % (auto) 0.0, Anion Gap 5L, Glomerular Filtration Rate > 60.0, Blood Urea Nitrogen 12, Creatinine 0.89, Sodium Level 137, Potassium Level 4.0, Chloride Level 103, Carbon Dioxide Level 29, Calcium Level 8.6 Microbiology Microbiology 05/06/18 Urine Culture - Final, Complete Staphylococcus Simulans Lactobacillus Species Current Medications Current Medications Current Medications Acetaminophen (Tylenol Tab) 650 mg Q4HP PRN PO fever/MILD PAIN (PS 1-4); Start 04/26/18 at 17:45 Amlodipine Besylate (Norvasc) 10 mg DAILY PO Last administered on 05/14/18at 09:28; Start 04/27/18 at 09:00 Aspirin (Aspirin Chewable) 81 mg DAILY PO Last administered on 05/14/18at 09:27; Start 04/27/18 at 09:00 Atorvastatin Calcium (Lipitor) 80 mg QHS PO Last administered on 05/13/18at 20: 25; Start 04/26/18 at 21:00 Bisacodyl (Dulcolax Suppository) 10 mg DAILYPRN PRN ME CONSTIPATION; Start 04/26/18 at 17:45 Clopidogrel Bisulfate (PLAVix) 75 mg DAILY PO Last administered on 05/14/18at 09 :26; Start 04/27/18 at 09:00 Dextrose (Dextrose 50%) 25 ml ASDIRECTED PRN IV SEE LABEL COMMENTS; Start 04/26/18 at 17:45 Dextrose (Dextrose 50%) 25 ml ASDIRECTED PRN IV SEE LABEL COMMENTS; Start at 12:00; Stop 04/27/18 at 12:00; Status DC Docusate Sodium (Colace) 100 mg BID PO Last administered on 05/14/18at 09:26; Start 04/26/18 at 21:00 Fluoxetine HCl (PROzac) 20 mg DAILY PO Last administered on 05/07/18at 08:21; Start 04/27/18 at 09:00; Stop 05/07/18 at 10:11; Status DC Fluoxetine HCl (PROzac) 30 mg DAILY PO Last administered on 05/14/18at 09:25; Start 05/08/18 at 09:00 Gabapentin (Neurontin) 100 mg BID PO Last administered on 04/27/18at 08:47; Start 04/26/18 at 21:00; Stop 04/27/18 at 13:07; Status DC Glucagon (Glucagon) 1 mg ASDIRECTED PRN SC SEE LABEL COMMENTS; Start 04/26/18 at 17:45 Glucagon (Glucagon) 1 mg ASDIRECTED PRN SC SEE LABEL COMMENTS; Start 04/27/18 at 12:00; Status UNV Glucose (Glucose) 16 GM ASDIRECTED PRN PO SEE LABEL COMMENTS; Start 04/26/18 at 17:45 Glucose (Glucose) 16 GM ASDIRECTED PRN PO SEE LABEL COMMENTS; Start 04/27/18 at 12:00; Stop 04/27/18 at 12:00; Status DC Home Med (Med Rec Complete!) ASDIRECTED XX ; Start 04/26/18 at 18:45; Stop 04/26/18 at 18:48; Status DC Insulin Detemir (Levemir Insulin) 10 units QHS SC Last administered on 05/01/18at 20:40; Start 04/26/18 at 21:00; Stop 05/02/18 at 13:27; Status DC Insulin Human Isoph/Insulin Regular (HumuLIN 70/30 INSULIN) 10 units BID@0730,1730 SC Last administered on 05/02/18at 10:30; Start 04/27/18 at 07:30; Stop 05/02/18 at 13:27; Status DC Insulin Human Isoph/Insulin Regular (HumuLIN 70/30 INSULIN) 14 units BID@0730,1730 SC Last administered on 05/14/18at 09:25; Start 05/02/18 at 17:30 Insulin Human Lispro (HumaLOG INSULIN) 2 units AC SC Last administered on 05/02/18at 12:37; Start 04/29/18 at 12:00; Stop 05/02/18 at 13:27; Status DC Insulin Human Lispro (HumaLOG INSULIN) SEE PROTOCOL TABLE AC SC Last administered on 05/14/18at 12:49; Start 04/27/18 at 12:00 Insulin Human Lispro (HumaLOG INSULIN) SEE PROTOCOL TABLE QHS SC Last administered on 05/10/18at 21:54; Start 04/27/18 at 21:00 Isosorbide Mononitrate (Imdur) 60 mg DAILY PO Last administered on 05/14/18at 09:27; Start 04/27/18 at 09:00 Lactobacillus Acidophilus (Bacid) 1 ea TID PO Last administered on 05/14/18at 09:26; Start 05/10/18 at 09:00 Levothyroxine Sodium (Synthroid) 25 mcg DAILY@06 PO Last administered on at 05:30; Start 04/27/18 at 06:00 Lisinopril (Prinivil) 40 mg DAILY@1000 PO Last administered on 05/14/18at 09:26; Start 04/27/18 at 10:00 Magnesium Hydroxide (Milk Of Magnesia) 30 ml DAILYPRN PRN PO CONSTIPATION; Start 04/26/18 at 17:45 Metoprolol Succinate (TopROL XL) 75 mg DAILY PO Last administered on 05/08/18at 09:29; Start 05/08/18 at 09:00; Stop 05/08/18 at 10:48; Status DC Metoprolol Succinate (TopROL XL) 75 mg DAILY PO Last administered on 04/27/18 08:48; Start 04/27/18 at 09:00; Stop 04/27/18 at 12:41; Status DC Metoprolol Succinate (TopROL XL) 100 mg DAILY PO Last administered on 05/06/18 10:00; Start 04/28/18 at 09:00; Stop 05/07/18 at 10:11; Status DC Metoprolol Tartrate (Lopressor) 50 mg BID PO Last administered on 05/13/18 20:28; Start 05/08/18 at 21:00 Nitrofurantoin Monoh/Nitrofur Macro (Macrobid) 100 mg BID PO Last administered on 05/14/18 09:27; Start 05/10/18 at 09:00; Stop 05/14/18 at 21:01 Ondansetron HCl (Zofran) 4 mg Q6HP PRN PO NAUSEA; Start 04/26/18 at 17:45 Pantoprazole Sodium (Protonix) 40 mg DAILY PO Last administered on 05/14/18 09:26; Start 04/27/18 at 09:00 Senna (Senokot) 1 tab QHS PO Last administered on 05/13/18 20:25; Start 04/26/18 at 21:00 VINCENT MERLOS MD May 14, 2018 14:08
--- NOTE | 2018-05-14 14:16 | IPNPDOC ---
PM&R Progress Note DATE OF SERVICE: May 14, 2018 [employer] Progress Note Subjective: Patient doing well, denies headache or dizziness. REVIEW OF SYSTEMS: The following is a completed review of systems and has been reviewed. Review of systems otherwise unremarkable. PAIN: Patient self reports no pain. EYES: +right visual field cut-improving EARS, NOSE, & THROAT: +dysphagia, no rhinorrhea or hearing loss CARDIOVASCULAR: denies palpitations or chest pain PULMONARY: Negative. Denies shortness of breath GASTROINTESTINAL: Negative for diarrhea or constipation GENITOURINARY: +incontinence (improving), denies dysuria. MUSCULOSKELETAL: RLE weakness NEUROLOGICAL: +stroke with RLE paresis HEMATOLOGICAL: Negative SKIN: loop recorder incision PSYCHIATRIC: Unremarkable. All other review of systems found to be negative. PHYSICAL EXAMINATION: VITAL SIGNS: Please see below. GENERAL: Pleasant and cooperative. No acute distress. HEENT: PERRL. Extraocular movements intact. Clear conjunctiva, poor dentition, visual field cut on the right CARDIOVASCULAR: Regular rate and rhythm. No murmurs, rubs, or gallops LUNGS: Clear to auscultation bilaterally. No wheezes. No rhonchi ABDOMEN: Soft, nontender, nondistended. Positive bowel sounds. Normal active bowel sounds NEUROLOGICAL: Alert and oriented times three. Cranial nerves II through XII grossly intact. EXTREMITIES: 5\5 strength bilateral upper extremities. 4/5 right hip flexors, knee extensors, ankle DF and EHL 5/5 strength in left lower extremity. +Babinski on the right +decreased sensation in right LE to light touch negative dysmetria SKIN: chest wall incision with sutures healing well ASSESSMENT:52-year-old F with past medical history of CVA, CAD, diastolic CHF, DM who presents status post new stroke with RLE weakness and dysphagia PLAN: 1. Rehab: PT/OT [employer], assess fo DME, patient with significant right sided inattention due to visual field cut which is improving, upgraded to mechanical soft diet and thins, able to ambulate further with RW, successful trial of chema- walker, advanced to quad cane -multiple falls on units most recently fell in therapy and slid out of her chair on 05/08/18, lap sonu, chair alarm, and bed alarms all in place and staff educated on how to properly use these safety devices, patient educated on importance of safety and she expressed awareness 2. 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 Resp: encourage incentive spirometry, monitor for aspiration 4. Cardio: pmh HTN with diastolic and systolic CHF, episodes of bradycardia, continue metoprolol at lower dose -medicine following 5. Endo: pmh DM, continue insulin therapy, will hold metformin-well controlled 6. DVT ppx: Lovenox 7. GI ppx: Pepcid 8. :admisison UA suspicious for UTI, Ucx positive for yeast, s/p Diflucan, denies dysuria- repeat Ucx positive for Staph Simulans c/u Macrobid and Bacid 9. Dspo: 05/17/18 to home with [id number] with Dr. Warren PMD [phone], progressing towards goals Allergies Coded Allergies: No Known Allergies (Unverified , 04/26/18) Vital Signs Vital Signs Date Time Temp Pulse Resp B/P (MAP) Pulse Ox O2 Delivery O2 Flow Rate FiO2 05/14/18 09:28 52 148/84 05/14/18 06:00 96.3 18 97 Laboratory Data CBC/BMP Laboratory Tests 05/14/18 06:11 Red Blood Count 4.08, Mean Corpuscular Volume 90.4, Mean Corpuscular Hemoglobin 29.7, Mean Corpuscular Hemoglobin Concent 32.8, Red Cell Distribution Width 13.1, Neutrophils (%) (Auto) 49.3, Lymphocytes (%) (Auto) 25.2, Monocytes (%) (Auto) 8.7 H, Eosinophils (%) (Auto) 15.8 H, Basophils (%) (Auto) 0.9, Neutrophils # (Auto) 3.5, Lymphocytes # (Auto) 1.8, Monocytes # (Auto) 0.6, Eosinophils # (Auto) 1.1 H, Basophils # (Auto) 0.1, Calcium Level 8.6 Labs 24H Laboratory Tests 2 05/13/18 16:38: Bedside Glucose (Misc Panel) 97 05/13/18 20:58: Bedside Glucose (Misc Panel) 170H 05/14/18 06:11: Immature Granulocyte % (Auto) 0.1, White Blood Count 7.0, Red Blood Count 4.08, Hemoglobin 12.1, Hematocrit 36.9, Mean Corpuscular Volume 90.4, Mean Corpuscular Hemoglobin 29.7, Mean Corpuscular Hemoglobin Concent 32.8, Red Cell Distribution Width 13.1, Platelet Count 265, Neutrophils (%) (Auto) 49.3, Lymphocytes (%) (Auto) 25.2, Monocytes (%) (Auto) 8.7H, Eosinophils (%) (Auto) 15.8H, Basophils (%) (Auto) 0.9, Neutrophils # (Auto) 3.5, Lymphocytes # (Auto) 1.8, Monocytes # (Auto) 0.6, Eosinophils # (Auto) 1.1H, Basophils # (Auto) 0.1, Nucleated Red Blood Cells % (auto) 0.0, Anion Gap 5L, Glomerular Filtration Rate > 60.0, Blood Urea Nitrogen 12, Creatinine 0.89, Sodium Level 137, Potassium Level 4.0, Chloride Level 103, Carbon Dioxide Level 29, Calcium Level 8.6 Microbiology Microbiology 05/06/18 Urine Culture - Final, Complete Staphylococcus Simulans Lactobacillus Species Current Medications Current Medications Current Medications Acetaminophen (Tylenol Tab) 650 mg Q4HP PRN PO fever/MILD PAIN (PS 1-4); Start 04/26/18 at 17:45 Amlodipine Besylate (Norvasc) 10 mg DAILY PO Last administered on 05/14/18at 09:28; Start 04/27/18 at 09:00 Aspirin (Aspirin Chewable) 81 mg DAILY PO Last administered on 05/14/18at 09:27; Start 04/27/18 at 09:00 Atorvastatin Calcium (Lipitor) 80 mg QHS PO Last administered on 05/13/18at 20:25; Start 04/26/18 at 21:00 Bisacodyl (Dulcolax Suppository) 10 mg DAILYPRN PRN CO CONSTIPATION; Start 04/26/18 at 17:45 Clopidogrel Bisulfate (PLAVix) 75 mg DAILY PO Last administered on 05/14/18at 09:26; Start 04/27/18 at 09:00 Dextrose (Dextrose 50%) 25 ml ASDIRECTED PRN IV SEE LABEL COMMENTS; Start 04/26/18 at 17:45 Dextrose (Dextrose 50%) 25 ml ASDIRECTED PRN IV SEE LABEL COMMENTS; Start 04/27/18 at 12:00; Stop 04/27/18 at 12:00; Status DC Docusate Sodium (Colace) 100 mg BID PO Last administered on 05/14/18at 09:26; Start 04/26/18 at 21:00 Fluoxetine HCl (PROzac) 20 mg DAILY PO Last administered on 05/07/18at 08:21; Start 04/27/18 at 09:00; Stop 05/07/18 at 10:11; Status DC Fluoxetine HCl (PROzac) 30 mg DAILY PO Last administered on 05/14/18at 09:25; Start 05/08/18 at 09:00 Gabapentin (Neurontin) 100 mg BID PO Last administered on 04/27/18at 08:47; Start 04/26/18 at 21:00; Stop 04/27/18 at 13:07; Status DC Glucagon (Glucagon) 1 mg ASDIRECTED PRN SC SEE LABEL COMMENTS; Start 04/26/18 at 17:45 Glucagon (Glucagon) 1 mg ASDIRECTED PRN SC SEE LABEL COMMENTS; Start 04/27/18 at 12:00; Status UNV Glucose (Glucose) 16 GM ASDIRECTED PRN PO SEE LABEL COMMENTS; Start 04/26/18 at 17:45 Glucose (Glucose) 16 GM ASDIRECTED PRN PO SEE LABEL COMMENTS; Start 04/27/18 at 12:00; Stop 04/27/18 at 12:00; Status DC Home Med (Med Rec Complete!) ASDIRECTED XX ; Start 04/26/18 at 18:45; Stop 04/26/18 at 18:48; Status DC Insulin Detemir (Levemir Insulin) 10 units QHS SC Last administered on 05/01/18at 20:40; Start 04/26/18 at 21:00; Stop 05/02/18 at 13:27; Status DC Insulin Human Isoph/Insulin Regular (HumuLIN 70/30 INSULIN) 10 units BID@0730,1730 SC Last administered on 05/02/18at 10:30; Start 04/27/18 at 07:30; Stop 05/02/18 at 13:27; Status DC Insulin Human Isoph/Insulin Regular (HumuLIN 70/30 INSULIN) 14 units BID@0730,1730 SC Last administered on 05/14/18 09:25; Start 05/02/18 at 17:30 Insulin Human Lispro (HumaLOG INSULIN) 2 units AC SC Last administered on 05/02/18at 12:37; Start 04/29/18 at 12:00; Stop 05/02/18 at 13:27; Status DC Insulin Human Lispro (HumaLOG INSULIN) SEE PROTOCOL TABLE AC SC Last administered on 05/14/18 12:49; Start 04/27/18 at 12:00 Insulin Human Lispro (HumaLOG INSULIN) SEE PROTOCOL TABLE QHS SC Last administered on 05/10/18at 21:54; Start 04/27/18 at 21:00 Isosorbide Mononitrate (Imdur) 60 mg DAILY PO Last administered on 05/14/18 09:27; Start 04/27/18 at 09:00 Lactobacillus Acidophilus (Bacid) 1 ea TID PO Last administered on 05/14/18 09:26; Start 05/10/18 at 09:00 Levothyroxine Sodium (Synthroid) 25 mcg DAILY@06 PO Last administered on 05/14/18 05:30; Start 04/27/18 at 06:00 Lisinopril (Prinivil) 40 mg DAILY@1000 PO Last administered on 05/14/18 09:26; Start 04/27/18 at 10:00 Magnesium Hydroxide (Milk Of Magnesia) 30 ml DAILYPRN PRN PO CONSTIPATION; Start 04/26/18 at 17:45 Metoprolol Succinate (TopROL XL) 75 mg DAILY PO Last administered on 05/08/18at 09:29; Start 05/08/18 at 09:00; Stop 05/08/18 at 10:48; Status DC Metoprolol Succinate (TopROL XL) 75 mg DAILY PO Last administered on 04/27/18at 08:48; Start 04/27/18 at 09:00; Stop 04/27/18 at 12:41; Status DC Metoprolol Succinate (TopROL XL) 100 mg DAILY PO Last administered on 05/06/18 10:00; Start 04/28/18 at 09:00; Stop 05/07/18 at 10:11; Status DC Metoprolol Tartrate (Lopressor) 50 mg BID PO Last administered on 05/13/18 20:28; Start 05/08/18 at 21:00 Nitrofurantoin Monoh/Nitrofur Macro (Macrobid) 100 mg BID PO Last administered on 05/14/18 09:27; Start 05/10/18 at 09:00; Stop 05/14/18 at 21:01 Ondansetron HCl (Zofran) 4 mg Q6HP PRN PO NAUSEA; Start 04/26/18 at 17:45 Pantoprazole Sodium (Protonix) 40 mg DAILY PO Last administered on 05/14/18 09:26; Start 04/27/18 at 09:00 Senna (Senokot) 1 tab QHS PO Last administered on 05/13/18 20:25; Start 04/26/18 at 21:00 VINECNT MERLOS MD May 14, 2018 14:16
[2018-05-14 20:00] VITALS: BP 140/64
[2018-05-14] MEDS: SENNA 8.6 MG TAB (SENOKOT) PO SCH (20:12)
[2018-05-14] MEDS: ATORVASTATIN 20 MG TAB PO SCH (20:13)
[2018-05-15 06:00] VITALS: BP 159/82
[2018-05-15] MEDS: LEVOTHYROXINE 25MCG TABLET (0.025MG) PO SCH (06:34)
[2018-05-15] MEDS: HumuLIN (NovoLIN)70/30 INSULIN INJ PER UNIT SC SCH ×2 (07:44→17:52)
[2018-05-15] MEDS: FLUoxetine 10 MG CAP PO SCH (07:44)
[2018-05-15] MEDS: CLOPIDOGREL 75 MG TAB PO SCH (07:44)
[2018-05-15] MEDS: HumaLOG INSULIN (NovoLOG) PER UNIT SC SCH ×4 (07:44→21:00)
[2018-05-15] MEDS: LACTOBACILLUS ACIDOPHILUS CAP (BACID) PO SCH ×3 (07:44→21:23)
[2018-05-15] MEDS: PANTOPRAZOLE 40MG TAB (PROTONIX) PO SCH (07:44)
[2018-05-15] MEDS: ASPIRIN 81 MG CHEW TABLET PO SCH (07:44)
[2018-05-15] MEDS: DOCUSATE SODIUM 100 MG CAP PO SCH ×2 (07:44→21:23)
[2018-05-15] MEDS: amLODIPine 10 MG TAB PO SCH (07:44)
[2018-05-15] MEDS: METOPROLOL TART 50 MG TAB PO SCH ×2 (07:45→21:00)
[2018-05-15] MEDS: ISOSORBIDE MON. (IMDUR) 60 MG XR TAB PO SCH (07:45)
[2018-05-15 10:05] VITALS: BP 138/77
[2018-05-15] MEDS: LISINOPRIL 40 MG TAB PO SCH (10:05)
[2018-05-15 14:00] VITALS: BP 134/63
--- NOTE | 2018-05-15 14:50 | NUR ---
Recommending upgrade to regular solids. Reported to Dr. Teixeira. Addendum: 05/15/18 at 1451 by TOMI HOOD [facility] Amended: Links added.
--- NOTE | 2018-05-15 15:39 | IPNPDOC ---
PM&R Progress Note DATE OF SERVICE: May 15, 2018 Tobacco Educator Progress Note Subjective: Patient feeling well she is eager to go home Sunday. REVIEW OF SYSTEMS: The following is a completed review of systems and has been reviewed. Review of systems otherwise unremarkable. PAIN: Patient self reports no pain. EYES: +right visual field cut-improving EARS, NOSE, & THROAT: +dysphagia, no rhinorrhea or hearing loss CARDIOVASCULAR: denies palpitations or chest pain PULMONARY: Negative. Denies shortness of breath GASTROINTESTINAL: Negative for diarrhea or constipation GENITOURINARY: +incontinence (improving), denies dysuria. MUSCULOSKELETAL: RLE weakness NEUROLOGICAL: +stroke with RLE paresis HEMATOLOGICAL: Negative SKIN: loop recorder incision PSYCHIATRIC: Unremarkable. All other review of systems found to be negative. PHYSICAL EXAMINATION: VITAL SIGNS: Please see below. GENERAL: Pleasant and cooperative. No acute distress. HEENT: PERRL. Extraocular movements intact. Clear conjunctiva, poor dentition, visual field cut on the right CARDIOVASCULAR: Regular rate and rhythm. No murmurs, rubs, or gallops LUNGS: Clear to auscultation bilaterally. No wheezes. No rhonchi ABDOMEN: Soft, nontender, nondistended. Positive bowel sounds. Normal active bowel sounds NEUROLOGICAL: Alert and oriented times three. Cranial nerves II through XII grossly intact. EXTREMITIES: 5\5 strength bilateral upper extremities. 4/5 right hip flexors, knee extensors, ankle DF and EHL 5/5 strength in left lower extremity. +Babinski on the right +decreased sensation in right LE to light touch negative dysmetria SKIN: chest wall incision with sutures healing well ASSESSMENT:52-year-old F with past medical history of CVA, CAD, diastolic CHF, DM who presents status post new stroke with RLE weakness and dysphagia PLAN: 1. 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 Resp: encourage incentive spirometry, monitor for aspiration 4. Cardio: pmh HTN with diastolic and systolic CHF, episodes of bradycardia, continue metoprolol at lower dose -medicine following 5. Endo: pmh DM, continue insulin therapy, will hold metformin-well controlled 6. DVT ppx: Lovenox 7. GI ppx: Pepcid 8. :admisison UA suspicious for UTI, Ucx positive for yeast, s/p Diflucan, denies dysuria- repeat Ucx positive for Staph Simulans s/p Macrobid and Bacid 9. Dispo: 05/17/18 to home with ejfatd-[id number] with Dr. Warren PMD [phone], progressing towards goals Allergies Coded Allergies: No Known Allergies (Unverified , 04/26/18) Vital Signs Vital Signs Date Time Temp Pulse Resp B/P (MAP) Pulse Ox O2 Delivery O2 Flow Rate FiO2 05/15/18 14:00 97.5 57 17 134/63 (86) 96 Laboratory Data Labs 24H Laboratory Tests 2 05/14/18 16:45: Bedside Glucose (Misc Panel) 183H 05/14/18 19:55: Bedside Glucose (Misc Panel) 196H 05/15/18 06:20: Bedside Glucose (Misc Panel) 111H 05/15/18 12:17: Bedside Glucose (Misc Panel) 136H Microbiology Microbiology 05/06/18 Urine Culture - Final, Complete Staphylococcus Simulans Lactobacillus Species Current Medications Current Medications Current Medications Acetaminophen (Tylenol Tab) 650 mg Q4HP PRN PO fever/MILD PAIN (PS 1-4); Start 04/26/18 at 17:45 Amlodipine Besylate (Norvasc) 10 mg DAILY PO Last administered on 05/15/18at 07:44; Start 04/27/18 at 09:00 Aspirin (Aspirin Chewable) 81 mg DAILY PO Last administered on 05/15/18at 07:44; Start 04/27/18 at 09:00 Atorvastatin Calcium (Lipitor) 80 mg QHS PO Last administered on 05/14/18at 20:13; Start 04/26/18 at 21:00 Bisacodyl (Dulcolax Suppository) 10 mg DAILYPRN PRN DE CONSTIPATION; Start 04/26/18 at 17:45 Clopidogrel Bisulfate (PLAVix) 75 mg DAILY PO Last administered on 05/15/18at 0 7:44; Start 04/27/18 at 09:00 Dextrose (Dextrose 50%) 25 ml ASDIRECTED PRN IV SEE LABEL COMMENTS; Start 04/26/18 at 17:45 Dextrose (Dextrose 50%) 25 ml ASDIRECTED PRN IV SEE LABEL COMMENTS; Start 04/27/18 at 12:00; Stop 04/27/18 at 12:00; Status DC Docusate Sodium (Colace) 100 mg BID PO Last administered on 05/15/18at 07:44; Start 04/26/18 at 21:00 Fluoxetine HCl (PROzac) 20 mg DAILY PO Last administered on 05/07/18at 08:21; Start 04/27/18 at 09:00; Stop 05/07/18 at 10:11; Status DC Fluoxetine HCl (PROzac) 30 mg DAILY PO Last administered on 05/15/18at 07:44; Start 05/08/18 at 09:00 Gabapentin (Neurontin) 100 mg BID PO Last administered on 04/27/18at 08:47; Start 04/26/18 at 21:00; Stop 04/27/18 at 13:07; Status DC Glucagon (Glucagon) 1 mg ASDIRECTED PRN SC SEE LABEL COMMENTS; Start 04/26/18 at 17:45 Glucagon (Glucagon) 1 mg ASDIRECTED PRN SC SEE LABEL COMMENTS; Start 04/27/18 at 12:00; Status UNV Glucose (Glucose) 16 GM ASDIRECTED PRN PO SEE LABEL COMMENTS; Start 04/26/18 at 17:45 Glucose (Glucose) 16 GM ASDIRECTED PRN PO SEE LABEL COMMENTS; Start 04/27/18 at 12:00; Stop 04/27/18 at 12:00; Status DC Home Med (Med Rec Complete!) ASDIRECTED XX ; Start 04/26/18 at 18:45; Stop 04/26/18 at 18:48; Status DC Insulin Detemir (Levemir Insulin) 10 units QHS SC Last administered on 05/01/18at 20:40; Start 04/26/18 at 21:00; Stop 05/02/18 at 13:27; Status DC Insulin Human Isoph/Insulin Regular (HumuLIN 70/30 INSULIN) 10 units BID@0730,1730 SC Last administered on 05/02/18at 10:30; Start 04/27/18 at 07:30; Stop 05/02/18 at 13:27; Status DC Insulin Human Isoph/Insulin Regular (HumuLIN 70/30 INSULIN) 14 units BID@0730,1730 SC Last administered on 05/15/18at 07:44; Start 05/02/18 at 17:30 Insulin Human Lispro (HumaLOG INSULIN) 2 units AC SC Last administered on 05/02/18at 12:37; Start 04/29/18 at 12:00; Stop 05/02/18 at 13:27; Status DC Insulin Human Lispro (HumaLOG INSULIN) SEE PROTOCOL TABLE AC SC Last administered on 05/15/18at 12:30; Start 04/27/18 at 12:00 Insulin Human Lispro (HumaLOG INSULIN) SEE PROTOCOL TABLE QHS SC Last administered on 05/10/18at 21:54; Start 04/27/18 at 21:00 Isosorbide Mononitrate (Imdur) 60 mg DAILY PO Last administered on 05/15/18at 07:45; Start 04/27/18 at 09:00 Lactobacillus Acidophilus (Bacid) 1 ea TID PO Last administered on 05/15/18at 07:44; Start 05/10/18 at 09:00 Levothyroxine Sodium (Synthroid) 25 mcg DAILY@06 PO Last administered on 05/15/18at 06:34; Start 04/27/18 at 06:00 Lisinopril (Prinivil) 40 mg DAILY@1000 PO Last administered on 05/15/18at 10:05; Start 04/27/18 at 10:00 Magnesium Hydroxide (Milk Of Magnesia) 30 ml DAILYPRN PRN PO CONSTIPATION; Start 04/26/18 at 17:45 Metoprolol Succinate (TopROL XL) 75 mg DAILY PO Last administered on 05/08/18at 09:29; Start 05/08/18 at 09:00; Stop 05/08/18 at 10:48; Status DC Metoprolol Succinate (TopROL XL) 75 mg DAILY PO Last administered on 04/27/18at 08:48; Start 04/27/18 at 09:00; Stop 04/27/18 at 12:41; Status DC Metoprolol Succinate (TopROL XL) 100 mg DAILY PO Last administered on 05/06/18at 10:00; Start 04/28/18 at 09:00; Stop 05/07/18 at 10:11; Status DC Metoprolol Tartrate (Lopressor) 50 mg BID PO Last administered on 05/15/18 07:45; Start 05/08/18 at 21:00 Nitrofurantoin Monoh/Nitrofur Macro (Macrobid) 100 mg BID PO Last administered on 05/14/18 20:12; Start 05/10/18 at 09:00; Stop 05/14/18 at 21:01; Status DC Ondansetron HCl (Zofran) 4 mg Q6HP PRN PO NAUSEA; Start 04/26/18 at 17:45 Pantoprazole Sodium (Protonix) 40 mg DAILY PO Last administered on 05/15/18 07:44; Start 04/27/18 at 09:00 Senna (Senokot) 1 tab QHS PO Last administered on 05/14/18at 20:12; Start 04/26/18 at 21:00 VINCENT MERLOS MD May 15, 2018 15:39
[2018-05-15 20:00] VITALS: BP 136/61
[2018-05-15] MEDS: ATORVASTATIN 20 MG TAB PO SCH (21:22)
[2018-05-15] MEDS: SENNA 8.6 MG TAB (SENOKOT) PO SCH (21:23)
[2018-05-16] MEDS: LEVOTHYROXINE 25MCG TABLET (0.025MG) PO SCH (05:49)
[2018-05-16 06:00] VITALS: BP 164/80
[2018-05-16] MEDS: ASPIRIN 81 MG CHEW TABLET PO SCH (08:09)
[2018-05-16] MEDS: FLUoxetine 10 MG CAP PO SCH (08:10)
[2018-05-16] MEDS: CLOPIDOGREL 75 MG TAB PO SCH (08:10)
[2018-05-16] MEDS: LACTOBACILLUS ACIDOPHILUS CAP (BACID) PO SCH ×3 (08:10→22:01)
[2018-05-16] MEDS: METOPROLOL TART 50 MG TAB PO SCH ×2 (08:11→22:00)
[2018-05-16] MEDS: ISOSORBIDE MON. (IMDUR) 60 MG XR TAB PO SCH (08:13)
[2018-05-16] MEDS: amLODIPine 10 MG TAB PO SCH (08:13)
[2018-05-16] MEDS: PANTOPRAZOLE 40MG TAB (PROTONIX) PO SCH (08:13)
[2018-05-16] MEDS: DOCUSATE SODIUM 100 MG CAP PO SCH ×2 (08:13→22:01)
[2018-05-16] MEDS: HumuLIN (NovoLIN)70/30 INSULIN INJ PER UNIT SC SCH ×2 (08:15→17:47)
[2018-05-16] MEDS: HumaLOG INSULIN (NovoLOG) PER UNIT SC SCH ×4 (08:16→21:00)
[2018-05-16] MEDS ORDERED: AMLO10TA5 PO (10:10)
[2018-05-16] MEDS ORDERED: PROZ10CA7 PO (10:10)
[2018-05-16] MEDS ORDERED: HUMU70IN SC (10:10)
[2018-05-16] MEDS ORDERED: LISI40TA PO (10:10)
[2018-05-16] MEDS ORDERED: LEVO25TA5 PO (10:10)
[2018-05-16] MEDS ORDERED: ISOS60TA2 PO (10:10)
[2018-05-16] MEDS ORDERED: CHIL81CH2 PO (10:10)
[2018-05-16] MEDS ORDERED: PANT40TA3 PO (10:10)
[2018-05-16] MEDS ORDERED: ATOR1TAB21 PO (10:10)
[2018-05-16] MEDS ORDERED: LOPR1TAB6 PO (10:10)
[2018-05-16] MEDS ORDERED: CLOP75TA2 PO (10:10)
[2018-05-16] MEDS: LISINOPRIL 40 MG TAB PO SCH (11:50)
[2018-05-16 13:03] VITALS: BP 129/64
[2018-05-16 14:00] VITALS: BP 129/64
--- NOTE | 2018-05-16 16:26 | NUR ---
Pt d/c'd to home this date w/ recommendations for continued SKILLED NURSING FACILITIES PROFESSIONAL services for cognitive linguistic skills in outpatient setting. Addendum: 05/16/18 at 1627 by TOMI HOOD [facility] SP Amended: Links added.
[2018-05-16 20:00] VITALS: BP 146/70
[2018-05-16 22:00] VITALS: BP 146/70
[2018-05-16] MEDS: ATORVASTATIN 20 MG TAB PO SCH (22:00)
[2018-05-16] MEDS: SENNA 8.6 MG TAB (SENOKOT) PO SCH (22:01)
[2018-05-17 04:00] VITALS: BP 162/78
[2018-05-17] MEDS: LEVOTHYROXINE 25MCG TABLET (0.025MG) PO SCH (05:56)
[2018-05-17] MEDS: METOPROLOL TART 50 MG TAB PO SCH (09:00)
[2018-05-17] MEDS: LISINOPRIL 40 MG TAB PO SCH (09:10)
[2018-05-17] MEDS: FLUoxetine 10 MG CAP PO SCH (09:10)
[2018-05-17] MEDS: CLOPIDOGREL 75 MG TAB PO SCH (09:10)
[2018-05-17] MEDS: ASPIRIN 81 MG CHEW TABLET PO SCH (09:11)
[2018-05-17] MEDS: LACTOBACILLUS ACIDOPHILUS CAP (BACID) PO SCH (09:11)
[2018-05-17] MEDS: PANTOPRAZOLE 40MG TAB (PROTONIX) PO SCH (09:11)
[2018-05-17] MEDS: DOCUSATE SODIUM 100 MG CAP PO SCH (09:11)
[2018-05-17 09:12] VITALS: BP 162/78
[2018-05-17] MEDS: ISOSORBIDE MON. (IMDUR) 60 MG XR TAB PO SCH (09:12)
[2018-05-17] MEDS: amLODIPine 10 MG TAB PO SCH (09:12)
[2018-05-17] MEDS: HumuLIN (NovoLIN)70/30 INSULIN INJ PER UNIT SC SCH (09:13)
[2018-05-17] MEDS: HumaLOG INSULIN (NovoLOG) PER UNIT SC SCH (09:13)
--- NOTE | 2018-05-28 13:04 | PMRDS ---
DATE OF ADMISSION: 04/26/2018 DATE OF DISCHARGE: 05/17/2018 CHIEF COMPLAINT/DISCHARGE DIAGNOSIS: Stroke. HISTORY OF PRESENT ILLNESS: This is a 52-year-old female with a past medical history of coronary artery disease (CAD), diabetes mellitus (DM), hyperlipidemia (HLD), hypertension, CVA with no significant residual weakness who presented to [facility] on 04/14/2018, complaining of right leg weakness that had lasted for 2 days in addition to memory loss. She reported at the time she had stopped taking her aspirin and was noted to have difficulty swallowing on exam. Repeat imaging revealed a "Left [place]YS[place] territory acute ischemic stroke with a probable occlusion of left TYS[place]. May be secondary to high-grade atherosclerotic occlusion versus embolization." She was also found to have a remote left stroke in the left ULTRASOUND COORDINATOR distribution. TTE showed "LV systolic function is mildly impaired . . . ejection fraction is 40-45% . . . LV diastolic function is abnormal with elevated filling pressures . . . ascending aorta is mildly dilated measuring up to 3.7 cm . . . bubble study no evidence of any ASD or PFO." Carotid ultrasound revealed "50-69% stenosis within the left internal carotid artery. Less than 50% stenosis within the proximal right internal carotid artery." She was evaluated by cardiology who was concerned that given this was her second stroke within the year that the source may be cardioembolic. She was instructed to continue aspirin and Plavix until June of 2018 and then to discontinue Plavix and continue aspirin. CHINTAN was later considered to be too risky given concern for aspiration but a loop recorder was placed by Dr. Lazcano to monitor for atrial fibrillation. She was evaluated by therapy and deemed medically appropriate for discharge to acute rehabilitation unit (ARU) on 04/26/2018. PAST MEDICAL HISTORY: As per history of present illness (HPI). HOSPITAL COURSE: Patient was admitted and enrolled in a comprehensive physical therapy (PT), occupational therapy (OT), speech and language pathology program. She received 24-hour nursing supervision and weekly team meetings were held to discuss her progress. In therapy, patient was eventually upgraded to regular diet and thin liquids. Regarding her recent stroke, she was maintained on aspirin and Plavix and statin for secondary stroke prevention. She was also maintained on Prozac for mood recovery and dose was increased to 30 mg daily. Patient had multiple falls on the unit mostly due to impulsivity without any injury. She had episodes of bradycardia, was asymptomatic and her metoprolol dose was lowered. She was maintained on insulin for her diabetes, Lovenox for deep venous thrombosis (DVT) prophylaxis, Pepcid for gastrointestinal (GI) prophylaxis. Her admission urinalysis (UA) was suspicious for urinary tract infection (UTI). Urine culture grew yeast. She was given a one time dose of Diflucan, repeat UA was positive for Staphylococcus simulans so she received Macrobid and Bacid. She was deemed functionally medically appropriate to discharge home after family training. DISCHARGE MEDICATIONS: - amlodipine 10 - aspirin 81 - atorvastatin 80 - Plavix 75 - fluoxetine 30 - isosorbide mononitrate 60 daily - Synthroid 25 daily - lisinopril 40 daily - metoprolol 50 twice a day - Protonix 40 daily FUNCTIONAL HISTORY: Upon discharge, patient was able to ambulate 300 feet contact guard assist with a quad cane, able to negotiate 14 stairs also contact assist, and was supervision touch assist for car transfers. In occupational therapy, she was contact guard for functional transfers and contact guard for light kitchen tasks requiring safety cueing. Patient was deemed functionally stable to return to home with home services.
== END 2018-05-17 10:47 | disposition home or self-care (01) | DRG 58 ==
LOC: M PM&R 17:15
PROVIDERS: ADMIT Physical Medicine & Rehabilitation; ATTEND Physical Medicine & Rehabilitation
DX: I69.351 Hemiplegia and hemiparesis following cerebral infarction affecting right dominant side (principal); I11.0 Hypertensive heart disease with heart failure; I50.42 Chronic combined systolic (congestive) and diastolic (congestive) heart failure; I69.391 Dysphagia following cerebral infarction; E11.9 Type 2 diabetes mellitus without complications; E78.5 Hyperlipidemia, unspecified; Z79.899 Other long term (current) drug therapy; Z79.82 Long term (current) use of aspirin; Z79.4 Long term (current) use of insulin; E03.9 Hypothyroidism, unspecified; F32.9 Major depressive disorder, single episode, unspecified